=== PATIENT | female | born 1940 | race Caucasian/White ===

== ENCOUNTER → 2017-11-22 15:04 | Outpatient (CLI) | payer MEDICARE, SELFPAY ==
[2017-11-22 18:34] LABS: CRP < 2.90 mg/L (0.0-3.0)
[2017-11-24 14:08] LABS: Endomysial Antibody IgA Negative (Negative)
[2017-11-24 14:44] LABS: Immunoglobulin A 105 mg/dL (64-422); t-Transglutaminase IgA <2 U/mL (0-3)
== END ==
PROVIDERS: Family Provider Family Medicine; PCP Family Medicine; Visit Provider Internal Medicine Gastroenterology
DX: R19.7 Diarrhea, unspecified (principal)
CPT/HCPCS: 36415; 82784; 83516; 86140; 86255

== ENCOUNTER → 2017-12-13 11:13 | Outpatient (CLI) | payer MEDICARE, SELFPAY ==
--- NOTE | 2017-12-13 11:17 | NM_ITS ---
CLINICAL: 77-year-old female with reported history of abdominal pain. RADIONUCLIDE HEPATOBILIARY SCINTIGRAPHY COMPARISON: None available FINDINGS: Following the intravenous administration of 5.2 mCi of 99m Tc Mebrofenin, hepatobiliary images reveal: 1. Relatively prompt and homogeneous radiopharmaceutical concentration is noted by a normal sized liver. No parenchymal defects are identified. 2. Gallbladder activity is identified at 30 minutes post radiopharmaceutical administration. 3. Small intestinal tract is observed at 30 minutes following tracer injection. 4. Washout of the radiopharmaceutical by the hepatic parenchyma appears qualitatively normal. Cholecystokinin (0.02 ug/kg) was administered intravenously over a 30-minute period. The post CCK gallbladder ejection fraction calculated at 20 minutes following Cholecystokinin administration was noted to be 27.0 % (normal greater than 35%). 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 NM/Hepatobilliary Img w/Pharm Int IMPRESSION: 1. ABNORMAL 99m Tc Mebrofenin hepatobiliary imaging examination with Cholecystokinin. A. A gallbladder ejection fraction calculated to be less than 35% following the administration of Cholecystokinin is consistent with the presence of functional hepatobiliary disease (gallbladder and/or sphincter of Oddi dyskinesia) and/or organic hepatobiliary disease (chronic acalculous cholecystitis and/or cystic duct syndrome) in patients with intermediate to high pretest probabilities of hepatobiliary illness. (Kunal Clark et al, Journal of Nuclear Medicine 32:1695, 1990). B. There is scintigraphic evidence of post CCK duodenal-gastric reflux. (Chantell et al, Nucl Med [place] [employer]ey[employer] Press pg. 35, 1980). Electronically Signed: Shabbir Greenwood DO at 10:16 EST Tel , Service support ,
== END ==
PROVIDERS: Family Provider Family Medicine; PCP Family Medicine; Visit Provider Family Medicine
DX: R10.11 Right upper quadrant pain (principal)
CPT/HCPCS: 78227; A9537; J2805

== ENCOUNTER 2018-01-03 07:36 | Day surgery (SDC) | payer MEDICARE, SELFPAY ==
--- NOTE | 2018-01-02 11:54 | EKG12_ITS ---
Test Reason : PREOP Blood Pressure : / mmHG Vent. Rate : 052 BPM Atrial Rate : 052 BPM P-R Int : 148 ms QRS Dur : 144 ms QT Int : 440 ms P-R-T Axes : 058 -15 107 degrees QTc Int : 409 ms Sinus bradycardia Possible Left atrial enlargement Right bundle branch block Left ventricular hypertrophy with QRS widening and repolarization abnormality Cannot rule out Septal infarct , age undetermined Lateral infarct , age undetermined Abnormal ECG Confirmed by TACHO RODRIGUEZ ([id number]), news copy editor AUDREY SWAN ([id number]) on 01/02/2018 4:22:33 PM Referred By: Hong Delarosa Confirmed By:TACHO RODRIGUEZ
[2018-01-02 12:28] LABS: Hematocrit 43.2 % (37-47); Hemoglobin 13.8 g/dl (12.0-15.0); Mean Corp Hgb Conc 31.9 g/gl (32-36); Mean Corpuscular Hgb 30.7 pg (27.0-32.0); Mean Corpuscular Volume 96.2 fL (81-99); Mean Platelet Vol. 10.6 fl (6.2-12.0); Platelet Count 173 K/mm3 (150-450); RBC Distribution Width CV 13.3 % (11.6-14.6); RBC Distribution Width SD 46.9 fl (35.1-43.9); Red Blood Count 4.49 M/mm3 (4.2-5.4); White Blood Count 4.6 K/mm3 (4.4-11.0)
[2018-01-02 12:30] LABS: Scan Indicated on CBC? Y/N NO
[2018-01-02 12:40] LABS: Prothrombin Time (Protime)PT. 13.2 SECONDS (11.7-14.9)
[2018-01-02 12:41] LABS: Partial Thromboplast Time 43.8 Seconds (24.1-36.2)
[2018-01-02 13:04] LABS: AST(SGOT) 20 U/L (15-37); Alanine Aminotransfer ALT/SGPT 25 U/L (13-56); Albumin, Serum 3.8 g/dL (3.2-5.0); Alkaline Phosphatase 59 U/L (45-117); Anion Gap 4 (5-15); BUN 14 mg/dL (7-18); Calcium,Total 9.8 mg/dL (8.5-10.1); Chloride 107 mmol/L (98-107); Creatinine, Serum 0.74 mg/dL (0.55-1.02); EST Glomerular Filtration Rate 82 mL/min (>60); Est Glom Filt Rate - Afr Amer 99 mL/min (>60); Globulin 3.3 g/dL (2.2-4.2); Glucose 58 mg/dL (74-106); Protein, Total 7.1 g/dL (6.4-8.2); Sodium Level 143 mmol/L (136-145)
[2018-01-03] VITALS (14 sets, daily range): BP systolic 107–199; BP diastolic 46–101; PULSE 52–79; RESP 10–18; TEMP 36.4–36.8; O2SAT 90–100; BMI 22.2
--- NOTE | 2018-01-03 09:50 | GALL_PTH ---
PATIENT: UMA SANTILLAN [place] [facility] [id number] AGE/SX: 77/F ROOM: RE01/03/[address]: Dr. Hong Delarosa MD : [id number] BED: DIS: 01/03/2018 SPEC #: [id number] RECD: 01/03/18 13:21 STATUS: YOHAN ISABEL #: [id number] CLAUDY: 01/03/18 09:[address]: Hong Delarosa DEPT: SURGICAL PATHOLOGY RECD BY: Brenna Sheth ENTERED: 01/03/18 13:55 SP TYPE: ASHA BERGERON DR: Dr. José Miguel Delarosa III, MD Tissues: Gallbladder, NOS Procedures: Surgery Specimen Level III HEADER OPERATION: Laparoscopic, cholecystectomy with IOC PRE-OP DIAGNOSIS: Chronic cholecystitis TISSUE SUBMITTED: Gallbladder MICROSCOPIC DIAGNOSIS Gallbladder: Chronic cholecystitis and cholelithiasis. One benign pericystic lymph node with reactive changes. SJ:stephanie 01/04/18 MICROSCOPIC DESCRIPTION Slides are reviewed. GROSS DESCRIPTION Received is one container labeled with the patient's name and designated gallbladder. The specimen consists of a gallbladder measuring 10 x 3.5 x 3.5 cm. The external surface is smooth and glistening. Focally, it is granular, hemorrhagic and contains cautery artifact. The lumen of the gallbladder contains yellow mucoid bile and no calculi. The mucosa is bile-stained and without any mass lesions. The gallbladder wall averages 0.2 cm in thickness and is free of mass lesions. The pericystic soft tissue contains a nodule measuring 1 cm in greatest dimension and resembling a lymph node. Groundskeeper Porter sections of the gallbladder and the cystic duct are submitted in one cassette including the lymph node. / AM:stephanie 01/03/18 TC:3 [facility]: [id number]
[2018-01-03] MEDS: Cefazolin 2 GM in 0.9% Normal Saline 100 ML IV (10:12)
--- NOTE | 2018-01-03 10:16 | PCM.DC.GS ---
Discharge Diet: Light diet - advance as tolerated - if you have questions about your diet instructions, please talk to you doctor. Discharge Activity: May Not Drive - for 1 week or while taking narcotic pain medicine. May shower in (days): 1 Lifting Restrictions: 10 pounds Call your doctor if your incision/area has: Continuous Slow Oozing, Sudden Increased Bleeding, Increased Pain/ Swelling, Increased Redness, Foul Smelling Discharge Call your doctor if you observe: Fever of 101 or Higher Suture Line Care: Avoid Pulling/Pushing, Avoid Pinching/Bending Additional Dressing/Incision Instructions:: Change or remove dressing in 4 days. Leave steri-strips in place for 1 week. Allergies/Adverse Reactions: Allergies ciprofloxacin [From Cipro] Allergy (Mild, Verified 12/28/17 15:12) hives latex Adverse Reaction (Verified 12/28/17 15:12) Hives mesalamine Allergy (Mild, Uncoded 12/28/17 15:12) Hives Medications to take at Discharge Ascorbic Acid [Vitamin C] 500 mg PO PRN PRN 10/17/14 Aspirin [Aspirin, Baby] 81 mg PO MOWEFR 10/17/14 Hydrochlorothiazide [Hctz] 12.5 mg PO DAILY 10/17/14 Multivit-Min/FA/Lycopene/Lut [Centrum Silver Tablet] 1 ea PO DAILY 10/17/14 Simvastatin [Zocor] 20 mg PO QHS 10/17/14 Valerian Root 400 mg PO PRN PRN 10/17/14 Carvedilol [Coreg (Beta Dominguez)] 3.125 mg PO BID 10/31/17 Lorazepam [Ativan] 0.5 mg PO DAILY PRN PRN 10/31/17 Calcium Carb/Vitamin D [Caltrate-600 With Vit D Tab] 2 tab PO DAILY@0800 12/28/17 CycloSPORINE Ophthalmic [Restasis Ophthalmic] 1 drop EACH EYE BID 12/28/17 Sertraline HCl [Zoloft] 50 mg PO DAILY 12/28/17 Hydrocodone Bitart/Apap 5-325 [[place] 5MG-325MG] 1 tablet PO Q6H PRN PRN 3 Days #6 tablet 01/03/18 The following prescriptions were given: Hydrocodone Bitart/Apap 5-325 [[place] 5MG-325MG] 1 tablet PO Q6H PRN PRN 3 Days #6 tablet PRN Reason: Pain Primary Care Physician: José Miguel Delarosa III, MD [Primary Care Provider] - Please Follow Up With: Hong Delarosa MD - [phone] When: Call to make an appointment to be seen in about 10 days.
--- NOTE | 2018-01-03 10:20 | RAD_ITS ---
STUDY: INTRAOPERATIVE CHOLANGIOGRAM. REASON FOR EXAM: Female, 77 years old. Laparoscopic cholecystectomy. FLUOROSCOPY TIME (if supplied): (0:22) minutes/seconds TECHNIQUE: An intraoperative cholangiogram was performed by the surgeon. Imaging was submitted. COMPARISON: None. FINDINGS: The common bile duct was opacified. No intraluminal filling defect is seen. There is free flow of contrast into the duodenum. The pancreatic duct was opacified as well. No abnormality is seen. RAD/Cholangiogram/ O R,Initial IMPRESSION: Unremarkable intraoperative cholangiogram. Electronically Signed: Adonay Ellington MD at 14:40 EDT Tel [phone], Service support ,
[2018-01-03] MEDS: Bupivacaine Mpf 0.5% 30 ML VIAL (10:26)
--- NOTE | 2018-01-03 11:27 | PCM.OPRPT ---
Problem List (1) Chronic cholecystitis Status: Acute Report of Operation Date of Procedure: 01/03/18 Pre-Operative Diagnosis: Chronic cholecystitis Post-Operative Diagnosis: Same Surgery/Procedure Performed:: Laparoscopic cholecystectomy with cholangiograms Description of Surgical Findings:: Timeout and informed consent was obtained. 77-year-old female was taken out from. She was placed on the table. She underwent general endotracheal intubation. Ancef 2 g are given intravenously preoperatively. The abdomen sterilely prepped draped. 0.5% Marcaine was used as local anesthetic. Throughout the procedure total 30 cc was used. Skin sites were pre-anesthetized. A curvilinear incision was made in the inferior portion of the umbilicus. Sharp dissection carried down to the fascia. Holding sutures of 0 Vicryl placed. Fascia was incised sharply and then hemostats were used to elevate the peritoneum. There is a significant amount of fibrofatty tissue so I then converted to a varies needle technique. Again clean access. The abdomen was insufflated with CO2 to pressure of 10 mmHg pressure. Roseanna trocar inserted. 10 lap scope inserted. No evidence of any trocar injuries. I direct visitation five-minute ports were placed in the epigastric right upper quadrant and right lateral upper quadrant. The patient is very short waist and has had a previous TRAM flap. The gallbladder was noted to be thickened and rubbery. It was elongated. The infundibular area peritoneum was incised and bluntly dissected free. The critical view was achieved. The cystic duct was thickened. The cystic artery identified. A Hem-o-fermin clip was placed on the cystic duct incision made in the cystic duct and the Tapvalue grams catheter was inserted through a 14-gauge Angiocath. Fluoroscopically controlled claims grams were obtained. This demonstrated normal flow into the common bile duct. There appear to be retrograde flow into the pancreatic duct with either distal stricturing or spasm. Official reading pending. This did not alter my proceeding with the procedure. The client James catheter was removed and 2 large Hem-o-fermin clips were placed on the infundibular cystic duct stump. Prior to transecting it. The cystic artery was clipped proximally with a Hem-o-fermin clip prior to transecting it. The gallbladder was dissected free from the liver bed using electrocautery. No spillage. Complete hemostasis was intact. The gallbladder was placed in retrieval bag. The right upper quadrant was irrigated and aspirated free of excess fluid. The liver bed was hemostatic with electrocautery and then fibular was placed. The gallbladder was exited the umbilicus. The remaining trochars removed under visualization. The abdomen was allowed to deflate of the CO2. The fascia at the umbilicus approximated interrupted 0 Vicryl figure 8 suture. Skin edges approximated up to 4 Monocryl subdermal stitches. Steri-Strips Telfa and OpSite dressings applied. Sponge instrument and needle counts were reported to the surgeon to be correct. Specimens gallbladder. Drains none. Blood loss minimal. Hong eDlarosa M.D., F.A.C.S. Type of Anesthesia:: General Anesthesiologist: Ramos Arguelles
--- NOTE | 2018-01-03 11:31 | OP.PCM_ITS ---
Problem List (1) Chronic cholecystitis Status: Acute Report of Operation Date of Procedure: 01/03/18 Pre-Operative Diagnosis: Chronic cholecystitis Post-Operative Diagnosis: Same Surgery/Procedure Performed:: Laparoscopic cholecystectomy with cholangiograms Description of Surgical Findings:: Timeout and informed consent was obtained. 77-year-old female was taken out from. She was placed on the table. She underwent general endotracheal intubation. Ancef 2 g are given intravenously preoperatively. The abdomen sterilely prepped draped. 0.5% Marcaine was used as local anesthetic. Throughout the procedure total 30 cc was used. Skin sites were pre- anesthetized. A curvilinear incision was made in the inferior portion of the umbilicus. Sharp dissection carried down to the fascia. Holding sutures of 0 Vicryl placed. Fascia was incised sharply and then hemostats were used to elevate the peritoneum. There is a significant amount of fibrofatty tissue so I then converted to a varies needle technique. Again clean access. The abdomen was insufflated with CO2 to pressure of 10 mmHg pressure. Roseanna trocar inserted. 10 lap scope inserted. No evidence of any trocar injuries. I direct visitation five-minute ports were placed in the epigastric right upper quadrant and right lateral upper quadrant. The patient is very short waist and has had a previous TRAM flap. The gallbladder was noted to be thickened and rubbery. It was elongated. The infundibular area peritoneum was incised and bluntly dissected free. The critical view was achieved. The cystic duct was thickened. The cystic artery identified. A Hem-o-fermin clip was placed on the cystic duct incision made in the cystic duct and the ToutApp grams catheter was inserted through a 14-gauge Angiocath. Fluoroscopically controlled claims grams were obtained. This demonstrated normal flow into the common bile duct. There appear to be retrograde flow into the pancreatic duct with either distal stricturing or spasm. Official reading pending. This did not alter my proceeding with the procedure. The client James catheter was removed and 2 large Hem-o-fermin clips were placed on the infundibular cystic duct stump. Prior to transecting it. The cystic artery was clipped proximally with a Hem-o-fermin clip prior to transecting it. The gallbladder was dissected free from the liver bed using electrocautery. No spillage. Complete hemostasis was intact. The gallbladder was placed in retrieval bag. The right upper quadrant was irrigated and aspirated free of excess fluid. The liver bed was hemostatic with electrocautery and then fibular was placed. The gallbladder was exited the umbilicus. The remaining trochars removed under visualization. The abdomen was allowed to deflate of the CO2. The fascia at the umbilicus approximated interrupted 0 Vicryl figure 8 suture. Skin edges approximated up to 4 Monocryl subdermal stitches. Steri-Strips Telfa and OpSite dressings applied. Sponge instrument and needle counts were reported to the surgeon to be correct. Specimens gallbladder. Drains none. Blood loss minimal. Hong Delarosa M.D., F.A.C.S. Type of Anesthesia:: General Anesthesiologist: Ramos Arguelles
[2018-01-03] MEDS: HYDROcodone Bitartrate/Apap 5/325 Tablet PO (15:00)
== END 2018-01-03 16:34 | disposition home or self-care (01) ==
LOC: SDC 07:37 → AC 07:38
PROVIDERS: Family Provider Family Medicine; PCP Family Medicine; Visit Provider Surgery
PROC: (CPT 47610; principal; 2018-01-03 09:30)
DX: K80.10 Calculus of gallbladder with chronic cholecystitis without obstruction (principal); I10 Essential (primary) hypertension; E78.00 Pure hypercholesterolemia, unspecified; F41.9 Anxiety disorder, unspecified; R23.3 Spontaneous ecchymoses; M06.9 Rheumatoid arthritis, unspecified; R00.1 Bradycardia, unspecified; Z87.891 Personal history of nicotine dependence; Z85.3 Personal history of malignant neoplasm of breast; Z79.82 Long term (current) use of aspirin
CPT/HCPCS: 47563; 36415; 74300; 76000; 80048; 80076; 85027; 85610; 85730; 88304; 93005; J7120; A4216; J2405

== ENCOUNTER → 2018-05-08 09:30 | Outpatient (CLI) | payer MEDICARE, SELFPAY ==
--- NOTE | 2018-05-08 09:36 | STE_ITS ---
Reason For Study: Atypical chest pain Stress Results Protocol: Rajan Protocol Maximum Predicted HR: 145 bpm Target HR: 123 bpm% Max imum Predicted HR: 90 % DurationHeart Rate Stage (mm:ss) (bpm) BP BASELINE 55 148/60 STAGE 1 3:00 99 140/70 STAGE 2 3:00 12 5 160/62 STAGE 3 1:01 13 0 / RECOVERY 68 144/70 Stress Duration: 7:01 mm:ss Maximum Stress HR: 130 bpmM ETS: 9 Baseline Echocardiogram Findings Stress Echo Wall motion Data Resting WMIntermediate WMStress WM Resting Wall Motion Wall Motion Stress All segments Normal. All segments Hyperkinetic. Ejection Fraction 55 %. Ejection Fraction 65 %. Stress Results Heart rate response: appropriate Blood pressure response: resting hypertension - appropriate response Arrhythmias: isolated exercise related transient 2:1 and 3:1 AV block with spontaneous return to sinus rhythm without obvious associated symptoms Functional capacity: good Stopped secondary to: dyspnea. EKG Data Baseline ECG: Sinus Bradycardia, RBBB. Peak exercise ECG: No obvious ECG changes. Symptoms with Stress No c/o chest discomfort during exercise / recovery. Interpretation Summary Negative (adequate) Stress Echocardiogram Comment: Isolated exercise related transient 2:1 and 3:1 AV block with spontaneoous return to sinus rhythm without obvious associated symptoms. Ordering Physician: José Miguel Delarosa Referring Physician: José Miguel Delarosa Performed By: Elba Ojeda RDCS
== END ==
PROVIDERS: Family Provider Family Medicine; PCP Family Medicine; Visit Provider Family Medicine
DX: I20.8 Other forms of angina pectoris (principal)
CPT/HCPCS: 93017; 93350

== ENCOUNTER → 2018-08-02 15:36 | Outpatient (CLI) | payer MEDICARE, SELFPAY ==
[2018-08-02 16:56] LABS: ALB/GLOB Ratio 1.2 RATIO (0.9-2.4); AST(SGOT) 22 U/L (15-37); Alanine Aminotransfer ALT/SGPT 33 U/L (13-56); Albumin, Serum 3.8 g/dL (3.2-5.0); Alkaline Phosphatase 68 U/L (45-117); Anion Gap 6 (5-15); BUN 16 mg/dL (7-18); BUN/Creat Ratio 21.2 RATIO (10-20); Calcium,Total 9.8 mg/dL (8.5-10.1); Chloride 102 mmol/L (98-107); Creatinine, Serum 0.75 mg/dL (0.55-1.02); EST Glomerular Filtration Rate 79 mL/min (>60); Est Glom Filt Rate - Afr Amer 96 mL/min (>60); Globulin 3.3 g/dL (2.2-4.2); Glucose 80 mg/dL (74-106); Potassium 4.3 mmol/L (3.5-5.1); Protein, Total 7.1 g/dL (6.4-8.2); Sodium Level 140 mmol/L (136-145)
== END ==
PROVIDERS: Family Provider Family Medicine; PCP Family Medicine; Referring Provider Family Medicine; Visit Provider Family Medicine
DX: I10 Essential (primary) hypertension (principal)
CPT/HCPCS: 80053

== ENCOUNTER 2018-10-18 11:30 | Outpatient (RCR) | payer MEDICARE, SELFPAY ==
--- NOTE | 2018-08-28 13:53 | HP.PTEVAL_ITS ---
Patient's Visit Information UMA SANTILLAN is a 78 year old F referred to Physical Therapy by José Miguel Delarosa with a diagnosis of LOW BACK PAIN. Date of Evaluation: 08/28/18 Physical Therapist: Briseyda Rodríguez Visit Plan Frequency: 2x /Week Duration: 4-6 Weeks Plan: AQUATIC THERAPY FOR PAIN RELEIF, POSTURE CORRECTION/STRENGTHENING, INSTRUCTION IN APPROPRIATE BODY MECHANICS AND ACTIVITY MODIFICATIONS. DLS STARTING WITH A NEUTRAL SPINE PROGRESSING ROM TOLERATED. ISAC LE ROM, STRETCHING AND STRENGTHENING. HEP INSTRUCTION. 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 Disability: NO. Present symptoms: RIGHT LOW BACK PAIN, RIGHT HIP PAIN AND RIGHT LATERAL THIGH PAIN. (PATIENT REPORTS SHE HAS A SORE LEFT SHOULDER FROM FALLING TOO). PATIENT REPORTS THE REASON SHE IS HERE IS FOR HER BACK. PATIENT DENIES LE SX'S. Present since: ABOUT 2 MONTHS AGO. Pain Scale: WORST 6/10, LEAST 0/10. Currently: 1/10. CURRENTLY GETTING BETTER. Commenced as a result of: NO APPARENT REASON BUT IT STARTED WHEN SHE STOPPED HAVING WATER CLASS TWO TIMES A WEEK. PATIENT REPORTS THE MONDAY WATER CLASS WAS ELIMINATED AND SHE ONLY DOES WATER CLASS ONCE A WEEK. Symptoms at onset: SAME. Worse: CURRENT WATER EX'S, SITTING IN A CHAIR THAT ISN'T STRAIGHT, LYING IN BED SOMTIMES. ALEVE (BUT DOES NOT WANT TO TAKE IT). Better: STANDING, SITTING IN A STRAIGHT CHAIR, BIOFREEZE. Disturbed sleep: YES. Previous history/Previous treatment: PATIENT REPORTS SHE HAS A HISTORY OF BACK PROBLEMS AND SHE HAS HAD PT, MASSAGE THERAPY AND CHIROPRACTIC TREATMENTS IN THE PAST. NO BACK SURGERY. NO BACK INJECTIONS. Coughing/sneezing/straining: NEGATIVE. Gait: PATIENT REPORTS SHE IS WALKING PRETTY NORMAL BUT IF SHE IS ON IT TOO MUCH SHE LIMPS A LITTLE. Difficulty initiating urinatin: NO. Accidents: NO. Unexplained weight loss: NO. Imaging: LUMBAR X-RAY SHOWING ARTHRITIS AND DDD PER PATIENT REPORT. PMH: GALLBLADDER REMOVAL MARCH 2018, BREAST CANCER WITH RECONSTRUCTION 2006 BUT NO CHEMO OR RADIATION. PLOF (Prior Level of Function): PATIENT REPORTS SHE IS NOW LIMITED IN HER ABILITY TO DO THE EX'S IN WATER CLASS DUE TO HER RIGHT BACK AND HIP PAIN. OTHER: PATIENT REPORTS SHE TRIPPED OVER SOMETHING IN THE GARAGE AND FELL AUG 11 2018 HURTING HER LEFT SHOULDER AND HER SHOULDER IS GETTING BETTER. SHE REPORTS HER BACK WAS ALREADY HURTING BEFORE SHE FELL AND SHE DENIES INCREASED BACK PAIN AFTER THE FALL. PATIENT REPORTS DR. OWENS GAVE HER PRESS UPS AND A CHIROPRACTIC TYPE ADJUSTMENT EX WHERE SHE LIES ON HER SIDE AND TWISTS HER UPPER BODY ONE WAY AND HER LEGS ANOTHER. SHE DID THEM ONCE A DAY AND IT SEEMED OK. SHE ALSO DOES KNEE TO CHEST FROM CHIROPRACTOR. - Objective Sitting/Standing Posture: FAIR. REDUCED LORDOSIS. NO LATERAL SHIFT. Active Correction of posture: WORSE (BETTER WITH CUSHION IN LOW BACK). Other Observations: INDEP GAIT INTO PT WITHOUT AD AND INDEP SIT TO STAND WITHOUT UE ASSIST. Motor deficit: ISAC LE'S 5/5 WITH MMT'ING EXCEPT HIPS GRADED 4/5. Sensory deficit: NO. ROM deficit: MILD HS TIGHTNESS. Reflexes: 2/3 ISAC LE'S. Dural Signs: NEGATIVE ISAC LE'S. Lumbar mvmt loss: flex - NIL. ext - MOD. R SG - MIN. L SG - MIN. INCREASED RIGHT LOW BACK PAIN WITH LUMBAR EXT AND RIGHT SG TESTING. Core strength: POOR. Palpation: TENDERNESS WITH PALPATION OF THE RIGHT PARASPINALS, RIGHT SACRAL, RIGHT BUTTOCK AND RIGHT HIP REGIONS. - Goals Goal 1:: DECREASE C/O RIGHT LOW BACK AND RIGHT LE PAIN Goal Time Frame: 4-6 Weeks Goal 2:: IMPROVE SITTING AND WATER EX FUNCTION Goal Time Frame: 4-6 Weeks Goal 3:: INSTRUCT IN PROPHYLAXIS Goal Time Frame: 4-6 Weeks - Rehabilitation Potential Rehabilitation Potential: Good - Anticipated Interventions Patient/Client Instruction: Educate patient on: Condition, Plan of Care, Risk Factors, Benefits of Fitness Program For the Purpose of:: To improve self management Therapeutic Exercise to Include: Strength training, Body mechanics, Postural training, Flexibilty training, In an aquatic setting, Dynamic Lumbar Stabilization For the Purpose of:: To decrease pain, To increase ROM, To improve muscle performance and motor function, To increase tolerance to activity/condition/position, To improve ability of physical actions for home/community/work/leisure Thank you for the opportunity to evaluate your patient. For Medicare and Medicare HMO plans, please review the plan of care and approve it. It will need to be FAXED BACK to us at [phone] for Medicare purposes. Please let me know if there are questions or concerns regarding this plan of care. Physician Signature : Date:
--- NOTE | 2018-09-19 12:25 | HP.PTREVAL ---
José Miguel Delarosa, It has been my pleasure to treat UMA SANTILLAN over the last 8 visits for LOW BACK PAIN. Please see the progress note below for an update on the physical therapy plan of care! Subjective: PATIENT REPORTS SHE HAS FOUND THERAPY VERY BENEFICIAL. PATIENT REPORTS SHE CAN SLEEP BETTER, AND SIT WITHOUT PAIN SOMETIMES. SHE REPORTS SHE KNOWS HOW TO CHANGE HER POSTURE TO ALLEVIATE HER PAIN NOW. SHE STATES SHE CAN EVEN GO UP STEPS WITHOUT PAIN NOW AND BEND PROPERLY SO IT DOESN'T HURT. SHE REPORTS UP TO 3/10 PAIN AT WORST NOW. SHE STATES SHE FEELS SHE COULD BENEFIT FROM FURTHER PT AND SHE IS HOPING TO SEE IF SHE CAN TOLERATE LAND PT. Objective/Function: Lumbar mvmt loss: flex - NIL. ext - MOD. R SG - MIN. L SG - MIN. INCREASED RIGHT LOW BACK PAIN WITH LUMBAR RIGHT SG TESTING BUT NOT EXTENSION TODAY. Core strength: POOR TO FAIR - IMPROVING. Palpation: TENDERNESS WITH PALPATION OF THE RIGHT PARASPINALS, RIGHT SACRAL, RIGHT BUTTOCK REGIONS BUT IMPROVING. PATIENT TOLERATED PRONE LYING WELL IN THE CLINIC TODAY. LUMBAR OSWESTRY HAS IMPROVED FROM 9 TO 5. Plan Plan: CONT PT 2X'S A WEEK ONE TIME A WEEK IN AQUATIC THERAPY AND ONE TIME A WEEK ON LAND TO WORK TOWARD INDEP WATER AND LAND EX PROGRAMS FOR MEMBERSHIP POST PT. AQUATIC THERAPY AND LAND THERAPY FOR PAIN RELEIF, POSTURE CORRECTION/STRENGTHENING, INSTRUCTION IN APPROPRIATE BODY MECHANICS AND ACTIVITY MODIFICATIONS. DLS STARTING WITH A NEUTRAL SPINE PROGRESSING ROM TOLERATED. ISAC LE ROM, STRETCHING AND STRENGTHENING. HEP INSTRUCTION. PATIENT IS AGREEABLE WITH POC. Goals Goal 1:: DECREASE C/O RIGHT LOW BACK AND RIGHT LE PAIN Goal Time Frame: 4-6 Weeks Goal Progress: Progressing Goal 2:: IMPROVE SITTING AND WATER EX FUNCTION Goal Time Frame: 4-6 Weeks Goal Progress: Progressing Goal 3:: INSTRUCT IN PROPHYLAXIS Goal Time Frame: 4-6 Weeks Goal Progress: Progressing Anticipated Interventions Patient/Client Instruction: Educate patient on: Condition, Plan of Care, Risk Factors, Benefits of Fitness Program For the Purpose of:: To improve self management Therapeutic Exercise to Include: Strength training, Body mechanics, Postural training, Flexibilty training, In an aquatic setting, Dynamic Lumbar Stabilization For the Purpose of:: To decrease pain, To increase ROM, To improve muscle performance and motor function, To increase tolerance to activity/condition/position, To improve ability of physical actions for home/community/work/leisure Please do not hesitate to contact me at [phone] by phone or if you have questions or concerns regarding this new plan of care! Sincerely, Briseyda Horan
--- NOTE | 2018-10-18 12:36 | HP.PTDCSUM ---
HP - PT D/C Summary It has been my pleasure to treat UMA SANTILLAN under orders from José Miguel Delarosa III, MD, for the diagnosis of LOW BACK PAIN for a total of 13 visit(s). Discharge Date: Please see the following information for a summary of their discharge status. - Subjective Subjective: PATIENT REPORTS HER STOMACH IS DEFINATELY GETTING STRONGER. STATES SHE GOT A NEW MATTRESS. WOULD LIKE TO CONTINUE INDEP'LY AT THIS POINT. - Pain Lumbar Spine Pain Intensity (Out of 10): 0 - Overall Improvement % Improvement: 80 - Objective Objective/Function: ALL GAOLS HAVE BEEN MET. PATIENT IS APPROPRIATE FOR DISCHARGE TO INDEP LAND AND POOL EX'S AT THIS TIME. WRITTEN EX PROGRAMS PROVIDED. UPON EXAM: Lumbar mvmt loss: flex - NIL. ext - MOD. R SG - MIN. L SG - MIN. INCREASED RIGHT LOW BACK PAIN WITH LUMBAR RIGHT SG TESTING ONLY. Palpation: TENDERNESS WITH PALPATION OF THE RIGHT PARASPINALS, RIGHT SACRAL, RIGHT BUTTOCK REGIONS BUT IMPROVING. LUMBAR OSWESTRY HAS NOT SIGNIFICANTLY CHANGED SINCE LAST RE-CHECK BUT IMPROVED FROM 9 TO 5 OR 6 OVER-ALL. [ End ] - Goals Goal 1:: DECREASE C/O RIGHT LOW BACK AND RIGHT LE PAIN Goal Progress: Goal Met Goal 2:: IMPROVE SITTING AND WATER EX FUNCTION Goal Progress: Goal Met Goal 3:: INSTRUCT IN PROPHYLAXIS Goal Progress: Goal Met - Plan Plan: D/C. - D/C Information If there are questions or concerns regarding this patient's physical therapy, please feel free to call me at [phone]. Thank you for the referral of this patient. Sincerely, Briseyda Horan, PT, Cert MDT
== END 2018-10-18 19:00 | disposition home or self-care (01) ==
LOC: PT 11:30
PROVIDERS: Family Provider Family Medicine; PCP Family Medicine; Referring Provider Family Medicine; Visit Provider Family Medicine
DX: M54.5 Low back pain (principal)
CPT/HCPCS: 97110; 97113; 97162; 97530

== ENCOUNTER → 2019-04-26 10:36 | Outpatient (CLI) | payer MEDICARE, SELFPAY ==
[2019-04-26 11:15] LABS: Cholesterol 173 mg/dL (200); High Density Lipoprotein 65 mg/dL; Triglycerides 57 mg/dL; Very Low Density Lipoprotein 11 mg/dL (5-40)
== END ==
PROVIDERS: Family Provider Family Medicine; PCP Family Medicine; Referring Provider Family Medicine; Visit Provider Family Medicine
DX: E78.5 Hyperlipidemia, unspecified (principal)
CPT/HCPCS: 80061

== ENCOUNTER → 2019-06-11 16:40 | Outpatient (CLI) | payer MEDICARE, SELFPAY | PROVIDERS: Family Provider Family Medicine; PCP Family Medicine; Referring Provider Nurse Practitioner Family; Visit Provider Nurse Practitioner Family | DX: N39.498 Other specified urinary incontinence (principal); R10.30 Lower abdominal pain, unspecified | CPT/HCPCS: 87070; 87086; 87205 ==

== ENCOUNTER → 2019-10-31 15:59 | Outpatient (CLI) | payer MEDICARE, SELFPAY ==
[2019-10-31 18:31] LABS: Absolute Lymphocyte Count 1.43 X10^3/uL (0.83-4.51); Absolute Neutrophil Count 2.8 X10^3/uL (2.0-7.7); Basophil# 0.06 X10^3/uL; Basophil% 1.2 % (0-1); Eosinophil# 0.14 X10^3/uL; Eosinophils% 2.9 % (0-5); Hematocrit 40.6 % (37-47); Hemoglobin 13.4 g/dL (12.0-15.0); Lymphocyte # 1.43 X10^3/ul (4.0); Lymphocyte % 29.5 % (19-41); Mean Corpuscular Hgb 31.3 pg (27.0-32.0); Mean Corpuscular Volume 94.9 fL (81-99); Mean Platelet Vol. 10.1 fl (6.2-12.0); Monocyte# 0.39 X10^3/uL; NRBC Flagged by Analyzer 0 % (0-5); Neutrophil # 2.82 X10^3/uL (2.7-7.7); Neutrophil % 58.2 % (47-70); Platelet Count 187 K/mm3 (150-450); RBC Distribution Width CV 12.2 % (11.6-14.6); RBC Distribution Width SD 42.1 fl (35.1-43.9); Red Blood Count 4.28 M/mm3 (4.2-5.4); White Blood Count 4.9 K/mm3 (4.4-11.0)
[2019-10-31 18:37] LABS: ALB/GLOB Ratio 1.1 RATIO (0.9-2.4); AST(SGOT) 16 U/L (15-37); Alanine Aminotransfer ALT/SGPT 25 U/L (13-56); Albumin, Serum 3.7 g/dL (3.2-5.0); Alkaline Phosphatase 66 U/L (45-117); Anion Gap 1 (5-15); BUN 12 mg/dL (7-18); BUN/Creat Ratio 16.7 RATIO (10-20); Calcium,Total 9.6 mg/dL (8.5-10.1); Chloride 104 mmol/L (98-107); Creatinine, Serum 0.72 mg/dL (0.55-1.02); EST Glomerular Filtration Rate 84 mL/min (>60); Erythrocyte Sedimentation Rate 2 mm/hr (0-30); Est Glom Filt Rate - Afr Amer 101 mL/min (>60); Globulin 3.3 g/dL (2.2-4.2); Glucose 89 mg/dL (74-106); Potassium 3.9 mmol/L (3.5-5.1); Sodium Level 139 mmol/L (136-145)
== END ==
PROVIDERS: PCP Family Medicine; Referring Provider Nurse Practitioner Family; Visit Provider Nurse Practitioner Family
DX: K52.831 Collagenous colitis (principal); R19.7 Diarrhea, unspecified
CPT/HCPCS: 80053; 85025; 85652; 87329; 87493; 87506

== ENCOUNTER → 2021-05-19 17:51 | Outpatient (CLI) | payer MEDICARE, SELFPAY ==
[2021-05-19 17:57] LABS: Bacteria 0 SEEN /hpf (None Seen); Mucous, Urine 0 SEEN /hpf (<or=2+); Red Blood Cells-Urine 0 SEEN /hpf (0-5); Squamous Epithelial Cells - UA 0 SEEN /hpf (5-10)
[2021-05-19 18:09] LABS: Absolute Lymphocyte Count 1.56 X10^3/uL (0.83-4.51); Absolute Neutrophil Count 3.2 X10^3/uL (2.0-7.7); Basophil# 0.05 X10^3/uL; Basophil% 0.9 % (0-1); Color, Urine Yellow (Yellow); Eosinophil# 0.11 X10^3/uL; Eosinophils% 2.1 % (0-5); Glucose, Dipstick Normal (Normal); Hematocrit 41.2 % (37-47); Hemoglobin 13.1 g/dL (12.0-15.0); Ketone-Dipstick Negative (Negative); Leukocyte Esterase-Dipstick 25 /ul (Negative); Lymphocyte # 1.56 X10^3/ul (0.83-4.51); Lymphocyte % 29.6 % (19-41); Mean Corp Hgb Conc 31.8 g/dL (32-36); Mean Corpuscular Hgb 30.2 pg (27.0-32.0); Mean Corpuscular Volume 94.9 fL (81-99); Mean Platelet Vol. 10.2 fl (6.2-12.0); Monocyte% 7.6 % (0-10); NRBC Flagged by Analyzer 0 % (0-5); Neutrophil # 3.15 X10^3/uL (2.7-7.7); Neutrophil % 59.8 % (47-70); Nitrite-Dipstick Negative (Negative); Occult Blood-Urine Negative /ul (Negative); Platelet Count 211 K/mm3 (150-450); Protein-Dipstick Negative (Negative); RBC Distribution Width CV 12.9 % (11.6-14.6); RBC Distribution Width SD 44.9 fl (35.1-43.9); Red Blood Count 4.34 M/mm3 (4.2-5.4); Urine Bilirubin Dipstick Negative (Negative); Urine Clarity Clear (Clear); Urine Urobilinogen Normal (Normal); White Blood Count 5.3 K/mm3 (4.4-11.0)
[2021-05-19 18:16] LABS: White Blood Cells 0-5 SEEN /hpf (0-5)
[2021-05-19 19:00] LABS: ALB/GLOB Ratio 1.1 RATIO (0.9-2.4); AST(SGOT) 20 U/L (15-37); Alanine Aminotransfer ALT/SGPT 28 U/L (13-56); Albumin, Serum 3.6 g/dL (3.2-5.0); Alkaline Phosphatase 74 U/L (45-117); Anion Gap 6 (5-15); BUN 19 mg/dL (7-18); Calcium,Total 9.3 mg/dL (8.5-10.1); Chloride 105 mmol/L (98-107); Cholesterol 230 mg/dL (200); Creatinine, Serum 0.95 mg/dL (0.55-1.02); EST Glomerular Filtration Rate 60 mL/min (>60); Est Glom Filt Rate - Afr Amer 73 mL/min (>60); Globulin 3.4 g/dL (2.2-4.2); Glucose 98 mg/dL (74-106); High Density Lipoprotein 56 mg/dL; Potassium 3.9 mmol/L (3.5-5.1); Sodium Level 141 mmol/L (136-145); Triglycerides 173 mg/dL; Very Low Density Lipoprotein 35 mg/dL (5-40)
== END ==
PROVIDERS: PCP Family Medicine; Visit Provider Family Medicine
DX: I10 Essential (primary) hypertension (principal); E78.2 Mixed hyperlipidemia; Z79.899 Other long term (current) drug therapy
CPT/HCPCS: 80053; 80061; 81001; 85025

== ENCOUNTER 2022-02-11 07:01 | Day surgery (SDC) | payer MEDICARE, SELFPAY ==
[2022-02-11] VITALS (7 sets, daily range): BP systolic 93–138; BP diastolic 44–66; PULSE 64–74; RESP 16; TEMP 36.1–37; O2SAT 96–98; BMI 21.6
[2022-02-11] MEDS: Lactated Ringers 1,000 ML 15 ML IV (07:36)
--- NOTE | 2022-02-11 08:09 | PCM.HP.BLA ---
History and Physical Date of Admission: 02/11/22 Intake Intake Visit Reasons: SCOPES FOR ANEMIA Chief Complaint: abn hida scan Allergies ciprofloxacin [From Cipro] Allergy (Mild, Verified 02/03/22 13:50) hives latex Adverse Reaction (Verified 02/03/22 13:50) Hives mesalamine Allergy (Mild, Uncoded 02/03/22 13:50) Hives Medications Valerian Root 400 mg PO PRN PRN 10/17/14 [History Confirmed 02/03/22] ascorbic acid (vitamin C) 500 mg PO PRN PRN 10/17/14 [History Confirmed 02/03/22] hydrochlorothiazide 12.5 mg PO DAILY 10/17/14 [History Confirmed 02/03/22] xhcwpqiz-szm-WC-lycopen-lutein 1 ea PO DAILY 10/17/14 [History Confirmed 02/03/22] lorazepam 0.5 mg PO DAILY PRN PRN 10/31/17 [History Confirmed 02/03/22] calcium carbonate-vitamin D3 2 tab PO DAILY@0800 12/28/17 [History Confirmed 02/03/22] cyclosporine 1 drp EACH EYE BID 12/28/17 [History Confirmed 02/03/22] sertraline 50 mg PO DAILY 12/28/17 [History Confirmed 02/03/22] ferrous sulfate 142 mg (45 mg iron) tablet,extended release 142 mg PO DAILY 02/03/22 [History Confirmed 02/03/22] PFSH Medical History Abnormal ECG Anxiety Chronic cholecystitis Hemorrhoids History of breast cancer History of colitis HLD (hyperlipidemia) Hypertension Pancreatitis Surgical History S/P colonoscopy S/P laparoscopic cholecystectomy (~01/03/18) S/P lumpectomy of breast Family History Mother Hypertension CVA (cerebral vascular accident) Sister Hypertension Father CVA (cerebral vascular accident) Social History Smoking Status: Former smoker HPI HPI HPI: UMA ASNTILLAN, is a 81 F who presents to the office today for iron deficiency anemia. The patient reports no gross blood in her stool. She had a colonoscopy in 2018 which was normal. She has never had an EGD. She does have lower abdominal pain. ROS General General: Yes weight change and breast cancer; No appetite, fatigue, colon cancer or weakness HEENT HEENT: No difficulty swallowing, eye injury, eye surgery, swollen glands or hoarseness Endo Endocrine: No thyroid disease, diabetes mellitus, thyroid cancer, Hair loss, heat intolerance or cold intolerance Skin Skin: No rash or changing moles Breast Breast: No left breast lump, right breast lump, nipple discharge, breast pain, abnormal mammogram, abnormal US or breast enlargement Musc Musculoskeletal: Yes arthritis; No back problems, rheumatoid arthritis, gout or joint pain Cardio Cardiovascular: No murmur, pacemaker, heart disease, atrial fibrillation, high blood pressure, heart attack, heart stent, palpitations, shortness of breat with exertion or chest pain Psych Psychiatric: Yes anxiety; No depression or hearing voices Resp Respiratory: No shortness of breath, No sleep apnea, No cough, No COPD, No asthma, No emphysema and No wheezing Gastro Gastrointestinal: Yes abdominal pain, No nausea or vomiting, No diarrhea, No constipation, No blood in stool, No acid reflux, No hemorrhoids, No ulcers, No gallbladder problem and No black,tarry stools Jerald Hematologic: No blood thinners, No blood disorders, No bleeding, Yes anemia and No blood clots Neuro Neurologic: No system reviewed and no additional complaints, except as documented, No as per HPI, No abnormal gait, No abnormal hearing, No abnormal movements, No abnormal speech, No behavioral changes, No burning sensations, No confusion, No convulsions, No disequilibrium, No dizziness, No localized weakness, No frequent falls, No headache(s), No lack of coordination, No loss of vision, No memory loss, No numbness, No other visual disturbances, No radicular pain, No restless legs, No sensory deficit, No syncope, No tingling, No tremor(s), No weakness and No other Exam Const General: cooperative Orientation: alert and oriented x3 HENMT Head: normal to inspection Neck Neck: normal visual inspection and full ROM Chest Chest palpation & inspection: normal inspection of the chest Resp Effort & Inspection: normal respiratory effort Auscultation: clear to auscultation bilaterally Cardio Rate: regular rate Rhythm: regular rhythm GI Inspection: non-distended Palpation: soft and nontender Skin General: no rashes or lesions noted Neuro General: patient alert and patient oriented x3 Extrem General: full ROM Psych Appearance: grossly normal Mental Status: mental status grossly normal Assessment and Plan Assessment and Plan (1) Iron deficiency anemia: Status: Acute Qualifiers: Iron deficiency anemia type: unspecified iron deficiency Qualified Code(s): D50.9 - Iron deficiency anemia, unspecified Plan - Dr. Juan A Tinajero MD: The patient has iron deficiency anemia of unknown cause. She had a colonoscopy 4 years ago which was normal. She has never had an EGD. I recommend upper and lower endoscopy to evaluate. I explained endoscopy in detail to the patient. I explained the risks including but not limited to stroke or heart attack with anesthesia, perforation of the GI tract, bleeding, infection. I explained that any of these could necessitate further emergency surgery. The patient understands and all questions were answered sufficiently. The patient wishes to proceed with procedure. Juan A Tinajero MD Pager: [facility] [address] [place] [address], [address] [place] [address] Office: I have re-examined the patient. There are no clinical changes since date of exam.
--- NOTE | 2022-02-11 08:15 | EGD_PTH ---
PATIENT: UMA SANTILLAN LOC: EN U#:[id number] AGE/SX: 81/F ROOM: RE02/11/[address]: Dr. Juan A Tinajero MD : 1940 BED: DIS: 02/11/2022 SPEC #: [id number] RECD: 02/11/22 10:29 STATUS: YOHAN HALL #: [id number] CLAUDY: 02/11/22 08:[address]: Juan A Tinajero DEPT: SURGICAL PATHOLOGY RECD BY: Lali Rowley ENTERED: 02/11/22 11:58 SP TYPE: EGD BIOPSY OT DR: Dr. Dillan German MD Tissues: A - Gastric mucous membrane B - Ascending colon Procedures: Special Stain Group II Mucicarmine Stain (control) Surgery Specimen Level IV Alcian Blue/PAS (control) HEADER OPERATION: Colonoscopy, EGD ([facility]) PRE-OP DIAGNOSIS: Iron Deficiency Anemia TISSUE SUBMITTED: A. Biopsy antrum, B. Biopsy ascending colon MICROSCOPIC DIAGNOSIS A. Gastric antrum, biopsy: Chronic gastritis. Focal intestinal metaplasia. No evidence of dysplasia. B. Ascending colon, biopsy: Consistent with invasive mucinous carcinoma. See Comment. AM/am 02/14/22 COMMENT A. Alcian blue with matched control is positive. The results of immunohistochemistry for Helicobacter pylori and P53/Ki-67 will be performed and results will be reported separately. B. Immunohistochemistry ([id number]) supports the above diagnosis. Mucin with matched control is positive. Case has been reviewed in consultation with Dr. Orellana who concurs with the above diagnosis. IDC:SJ MICROSCOPIC DESCRIPTION Slides are reviewed. GROSS DESCRIPTION A. Received is one container labeled with the patient name and designated antrum biopsy. The specimen consists of multiple irregular fragments of light nice soft tissue that in aggregate measure 0.6 x 0.2 x 0.1 cm. The specimen is totally submitted in one cassette. B. Received is one container labeled with the patient name and designated ascending colon biopsy. The specimen consists of multiple irregular fragments of light nice soft tissue that in aggregate measure 1.0 x 0.5 x 0.1 cm. The specimen is totally submitted in one cassette. 02/13/22 TC:0 CPT:49112w8, 77559t4
--- NOTE | 2022-02-11 08:15 | IMM_PTH ---
PATIENT: UMA SANTILLAN LOC: EN U#:[id number] AGE/SX: 81/F ROOM: RE02/11/[address]: Dr. Juan A Tinajero MD : 1940 BED: DIS: 02/11/2022 SPEC #: [id number] RECD: 02/11/22 12:00 STATUS: YOHAN ISABEL #: [id number] CLAUDY: 02/11/22 08:[address]: Juan A Tinajero DEPT: IMMUNOHISTOCHEMISTRY RECD BY: Lali Rowley ENTERED: 02/11/22 12:09 SP TYPE: IMMUNO OTHR DR: Dr. Dillan German MD Tissues: Gastric mucous membrane Procedures: H Pylori (initial) MSH2 (add) MLH-1 (add) MSH6 (add) Anti-PMS2 (add) CK20 (add) GALVEZ-2 (add) KI-67 (add) P53 (add) Pankeratin (initial) CDX2 (add) PHYSICIAN [address] [address] SPECIMEN INFORMATION: Tissue Source: A - Antrum biopsy, B ? Ascending colon biopsy Clinical Info: Iron deficiency Anemia Specimen Number: [id number] A & B CPT code: 65209 x2, 43642 x11 METHODOLOGY: Deparaffinized sections of prefer/formalin-fixed tissue or PAP/DQ stained slides are incubated with monoclonal/polyclonal antibodies/oligonucleotide probes. Localization is made via biotin free immunoperoxidase method. Appropriate controls are performed and reacted as expected. Results on target cell population are indicated in the following table: RESULTS: ANTIBODY / CLONE RESULT Block A H Pylori (polyclonal) negative These tests were developed and their performance characteristics determined by [facility]. They may not have been cleared or approved by the U.S. Food and Drug Administration. The FDA has determined that such clearance or approval is not necessary. The above immunohistochemical/dualISH markers are ordered and reviewed by the Pathologist. INTERPRETATION: Gastric antrum, biopsy: Negative for H.pylori organisms. AM/am 02/14/22 ADDENDUM ADDENDUM ADDENDUM ADDENDUM ADDENDUM ADDENDUM ADDENDUM ADDENDUM ADDENDUM ADDENDUM ADDENDUM ADDENDUM ADDENDUM ADDENDUM ADDENDUM ADDENDUM ADDENDUM ADDENDUM ADDENDUM ADDENDUM ADDENDUM ADDENDUM ADDENDUM ADDENDUM ADDENDUM ADDENDUM ADDENDUM ADDENDUM 02/15/2022 13:34 ADDENDUM 02/15/2022 13:34 ADDENDUM 02/15/2022 13:34 ADDENDUM 02/15/2022 13:34 ADDENDUM 02/15/2022 13:34 ANTIBODY / CLONE RESULT Block A P53 (DO-7) negative Ki-67 (30-9) positive, low Block B AE1-3 (AE1/AE3/PCK26) positive CK20 (KS20.8) positive GALVEZ-2 (SP21) positive CDX2 (OFY1983M) positive MLH-1 (M1) negative MSH2 (25D12) positive MSH6 (44) positive PMS2 (VTF6589) positive Ki-67 (30-9) positive, >90% P53 (DO-7) positive, 2% A. Antrum, biopsy: Focal intestinal metaplasia. No evidence of dysplasia. B. Ascending colon, biopsy: Invasive mucinous adenocarcinoma. Result of Microsatellite Instability Study: Positive (loss of mismatch protein; microsatellite instability detected). Complete loss of MLH1. AM:stephanie 02/15/2022
--- NOTE | 2022-02-11 08:50 | OP.EGD_ITS ---
Patient Name: Krissy Ahmadi Procedure Date: 02/11/2022 8:14 AM Date of : 1940 Age: 81 Procedure: Upper GI endoscopy Indications: Iron deficiency anemia Providers: Juan A Tinajero MD Medicines: Monitored Anesthesia Care Patient Profile: This is a 81 year old female. Refer to note in patient chart for documentation of history and physical. Complications: No immediate complications. Estimated blood loss: Minimal. Procedure: Pre-Anesthesia Assessment: - Prior to the procedure, a History and Physical was performed, and patient medications and allergies were reviewed. The patient's tolerance of previous anesthesia was also reviewed. The risks and benefits of the procedure and the sedation options and risks were discussed with the patient. All questions were answered, and informed consent was obtained. Prior Anticoagulants: The patient has taken no previous anticoagulant or antiplatelet agents. After reviewing the risks and benefits, the patient was deemed in satisfactory condition to undergo the procedure. After obtaining informed consent, the endoscope was passed under direct vision. Throughout the procedure, the patient's blood pressure, pulse, and oxygen saturations were monitored continuously. The Endoscope was introduced through the mouth, and advanced to the second part of duodenum. The upper GI endoscopy was accomplished without difficulty. The patient tolerated the procedure well. Scope In: 8:24:06 AM Scope Out: 8:26:48 AM Total Procedure Duration Time 0 hours 2 minutes 42 seconds Findings: The esophagus was normal. The stomach was normal. The examined duodenum was normal. Biopsies were taken with a cold forceps in the gastric antrum for Helicobacter pylori testing. Impression: - Normal esophagus. - Normal stomach. - Normal examined duodenum. - Biopsies were taken with a cold forceps for Helicobacter pylori testing. Recommendation: - Discharge patient to home. - Resume previous diet. - Continue present medications. Procedure Code(s): --- Professional --- 48502, Esophagogastroduodenoscopy, flexible, transoral; with biopsy, single or multiple Diagnosis Code(s): --- Professional --- D50.9, Iron deficiency anemia, unspecified CPT copyright 2017 [employer]. All rights reserved. The codes documented in this report are preliminary and upon seafood specialist review may be revised to meet current compliance requirements. Juan A Tinajero MD 02/11/2022 8:49:55 AM This report has been signed electronically. Number of Addenda: 0 Note Initiated On: 02/11/2022 8:14 AM
--- NOTE | 2022-02-11 08:51 | OP.CCLET_ITS ---
02/11/2022 Dillan German MD Re : Upper GI endoscopy procedure for Krissy Ahmadi Dear Dr. German This procedure was performed on Friday, February 11, 2022. My impressions and recommendations are as follows: Impressions : - Normal esophagus. - Normal stomach. - Normal examined duodenum. - Biopsies were taken with a cold forceps for Helicobacter pylori testing. Recommendations : - Discharge patient to home. - Resume previous diet. - Continue present medications. My findings are described in the full procedure note, which is enclosed. If I can be of further assistance, please feel free to contact me at Doctor phone number(s): , Work: . Sincerely, Juan A Tinajero MD 02/11/2022 8:49:55 AM This report has been signed electronically.
--- NOTE | 2022-02-11 08:59 | OP.COLON_ITS ---
Patient Name: Krissy Ahmadi Procedure Date: 02/11/2022 8:29 AM Date of : 1940 Age: 81 Procedure: Colonoscopy Indications: Iron deficiency anemia Providers: Juan A Tinajero MD Medicines: Monitored Anesthesia Care Patient Profile: This is a 81 year old female. Refer to note in patient chart for documentation of history and physical. Last Colonoscopy: more than 3 years ago. Complications: No immediate complications. Estimated blood loss: Minimal. Procedure: Pre-Anesthesia Assessment: - Prior to the procedure, a History and Physical was performed, and patient medications and allergies were reviewed. The patient's tolerance of previous anesthesia was also reviewed. The risks and benefits of the procedure and the sedation options and risks were discussed with the patient. All questions were answered, and informed consent was obtained. Prior Anticoagulants: The patient has taken no previous anticoagulant or antiplatelet agents. After reviewing the risks and benefits, the patient was deemed in satisfactory condition to undergo the procedure. After I obtained informed consent, the scope was passed under direct vision. Throughout the procedure, the patient's blood pressure, pulse, and oxygen saturations were monitored continuously. The Colonoscope was introduced through the anus and advanced to the cecum, identified by appendiceal orifice and ileocecal valve. The colonoscopy was performed without difficulty. The patient tolerated the procedure well. The quality of the bowel preparation was good. Scope In: 8:30:10 AM Scope Withdrawal Time 0 hours 4 minutes 13 seconds Scope Out: 8:42:21 AM Total Procedure Duration Time 0 hours 12 minutes 11 seconds Findings: A fungating partially obstructing large mass was found in the ascending colon. The mass was partially circumferential (involving two-thirds of the lumen circumference). No bleeding was present. This was biopsied with a cold forceps for histology. Impression: - Malignant partially obstructing tumor in the ascending colon. Biopsied. - Malignant-appearing tumor in the colon. Biopsied. Recommendation: - Discharge patient to home. - Resume previous diet. - Continue present medications. - Await pathology results. - Return to my office in 1 week. - Perform CT scan (computed tomography) of the abdomen with contrast at appointment to be scheduled. - Repeat colonoscopy is recommended. The colonoscopy date will be determined after pathology results from today's exam become available for review. Procedure Code(s): --- Professional --- 45904, Colonoscopy, flexible; with biopsy, single or multiple Diagnosis Code(s): --- Professional --- C18.2, Malignant neoplasm of ascending colon K56.690, Other partial intestinal obstruction D49.0, Neoplasm of unspecified behavior of digestive system D50.9, Iron deficiency anemia, unspecified CPT copyright 2017 [employer]. All rights reserved. The codes documented in this report are preliminary and upon brine maker review may be revised to meet current compliance requirements. Juan A Tinajero MD 02/11/2022 8:58:50 AM This report has been signed electronically. Number of Addenda: 0 Note Initiated On: 02/11/2022 8:29 AM
--- NOTE | 2022-02-11 09:00 | OP.CCLET_ITS ---
02/11/2022 Dillan German MD Re : Colonoscopy procedure for Krissy Ahmadi Dear Dr. German This procedure was performed on Friday, February 11, 2022. My impressions and recommendations are as follows: Impressions : - Malignant partially obstructing tumor in the ascending colon. Biopsied. - Malignant-appearing tumor in the colon. Biopsied. Recommendations : - Discharge patient to home. - Resume previous diet. - Continue present medications. - Await pathology results. - Return to my office in 1 week. - Perform CT scan (computed tomography) of the abdomen with contrast at appointment to be scheduled. - Repeat colonoscopy is recommended. The colonoscopy date will be determined after pathology results from today's exam become available for review. My findings are described in the full procedure note, which is enclosed. If I can be of further assistance, please feel free to contact me at Doctor phone number(s): , Work: . Sincerely, Juan A Tinajero MD 02/11/2022 8:58:50 AM This report has been signed electronically.
== END 2022-02-11 09:44 | disposition home or self-care (01) ==
LOC: EN 07:02 → AC 07:04
PROVIDERS: PCP Family Medicine; Referring Provider Family Medicine; Visit Provider Surgery
PROC: 0DJD8ZZ Inspection of Lower Intestinal Tract, Via Natural or Artificial Opening Endoscopic (ICD-10-PCS; CPT 45378; principal; 2022-02-11 08:10)
DX: C18.2 Malignant neoplasm of ascending colon (principal); K56.690 Other partial intestinal obstruction; D50.9 Iron deficiency anemia, unspecified; K29.50 Unspecified chronic gastritis without bleeding
CPT/HCPCS: 45380; 43239; 88305; 88313; 88341; 88342; J7120; J2405

== ENCOUNTER → 2022-02-15 | Outpatient (CLI) | payer MEDICARE, SELFPAY ==
--- NOTE | 2022-02-15 06:40 | CT_ITS ---
STUDY: CT CHEST, ABDOMEN T PELVIS WITH CONTRAST REASON FOR EXAM: Female, 81 years old. Anemia. Recently diagnosed with colon cancer. RADIATION DOSAGE (If Supplied By Facility): CTDIvol = ( 12.34 ) mGy, DLP = ( 810.73 ) mGycm TECHNIQUE: Transaxial imaging was performed following intravenous administration of Oral and amp; IV Readi-CAT and amp; 100mL Isovue-370. Individualized dose optimization techniques were used for this CT. COMPARISON: No relevant priors. FINDINGS: CHEST There is a septated cystic nodule in the inferior posterior aspect of the right lobe of the thyroid measuring 1.4 cm x 1.4 cm. Mild degree of increased markings at the lung bases suggestive of a atelectasis. There is no demonstrated pleural abnormality. Mild degree of coronary artery calcification. Normal mediastinum. Normal hilar regions. Normal unenhanced pulmonary arteries. There is atherosclerotic calcification of the aortic arch. Normal osseous structures. ABDOMEN Normal liver. The patient is status post cholecystectomy. Normal spleen. Normal pancreas. Normal bilateral adrenal glands. Normal right kidney. Normal left kidney. Normal visualized stomach. Normal small intestine. There is a 4.6 cm x 4.2 cm x 3.4 cm mass in the ascending colon just proximal to the hepatic flexure. This corresponds to the known colon carcinoma. The patient is status post appendectomy. Normal abdominal aorta. Normal inferior vena cava. Normal retroperitoneum. Normal abdominal wall. There are degenerative changes of the visualized lumbar spine. PELVIS Normal urinary bladder. Normal visualized small intestine. Normal visualized colon. There is no pelvic fluid. There is no pelvic lymphadenopathy or mass lesion. Normal visualized pelvic arteries. CT/CT Chest, Abd, Pel w/Contrast IMPRESSION: 4.6 cm x 4.2 cm x 3.4 cm soft tissue mass in the ascending colon just proximal to the hepatic flexure. Electronically Signed: Adonay Ellington MD at 9:37 EDT ,
[2022-02-15 06:51] LABS: CREATININE FINGERSTICK 0.7 mg/dL (0.55-1.02); EGFR FINGERSTICK > 60.0000 mL/min (>60)
== END | disposition home or self-care (01) ==
PROVIDERS: PCP Family Medicine; Referring Provider Surgery; Visit Provider Surgery
DX: C18.9 Malignant neoplasm of colon, unspecified (principal)
CPT/HCPCS: 71260; 74177; Q9967

== ENCOUNTER 2022-02-21 13:34 | Inpatient (IN) | payer MEDICARE, SELFPAY ==
[2022-02-17 15:01] LABS: Hematocrit 35.3 % (37-47); Hemoglobin 10.7 g/dL (12.0-15.0); Mean Corp Hgb Conc 30.3 g/dL (32-36); Mean Corpuscular Hgb 25.2 pg (27.0-32.0); Mean Corpuscular Volume 83.1 fL (81-99); Mean Platelet Vol. 10.1 fl (6.2-12.0); Platelet Count 252 K/mm3 (150-450); RBC Distribution Width CV 19.9 % (11.6-14.6); RBC Distribution Width SD 58.8 fl (35.1-43.9); Red Blood Count 4.25 M/mm3 (4.2-5.4); White Blood Count 5.5 K/mm3 (4.4-11.0)
[2022-02-17 15:10] LABS: Prothrombin Time (Protime)PT. 12.6 SECONDS (11.7-14.9)
[2022-02-17 15:11] LABS: Partial Thromboplast Time 44.1 Seconds (24.1-36.2)
[2022-02-17 15:36] LABS: Anion Gap 5 (5-15); BUN 16 mg/dL (7-18); BUN/Creat Ratio 19.6 RATIO (10-20); Calcium,Total 9.2 mg/dL (8.5-10.1); Chloride 104 mmol/L (98-107); Creatinine, Serum 0.82 mg/dL (0.55-1.02); EST Glomerular Filtration Rate 72 mL/min (>60); Est Glom Filt Rate - Afr Amer 87 mL/min (>60); Glucose 109 mg/dL (74-106); Magnesium 2.2 mg/dL (1.6-2.6); Potassium 3.6 mmol/L (3.5-5.1); Sodium Level 140 mmol/L (136-145)
--- NOTE | 2022-02-18 09:45 | EKG12_ITS ---
Test Reason : PRE-OP Blood Pressure : / mmHG Vent. Rate : 070 BPM Atrial Rate : 070 BPM P-R Int : 136 ms QRS Dur : 142 ms QT Int : 428 ms P-R-T Axes : 071 -38 088 degrees QTc Int : 462 ms Normal sinus rhythm Left axis deviation Right bundle branch block Left ventricular hypertrophy with repolarization abnormality Lateral infarct , age undetermined Abnormal ECG Confirmed by NORMAN DUNHAM, DARWIN ([id number]), copy editor YANA PEREIRA ([id number]) on 02/18/2022 9:51:31 AM Referred By: Juan A Tinajero Confirmed By:JONATHAN AUSTIN MD
[2022-02-21] VITALS (14 sets, daily range): BP systolic 99–194; BP diastolic 46–88; PULSE 45–65; RESP 12–21; TEMP 36–36.8; O2SAT 93–100; BMI 20.9
--- NOTE | 2022-02-21 | COL._PTH ---
PATIENT: UMA SANTILLAN LOC: MS3 U#:[id number] AGE/SX: 81/F ROOM: WA311 RE02/21/[address]: Dr. Juan A Tinajero MD : 1940 BED: 1 DIS: 02/25/2022 SPEC #: [id number] RECD: 02/21/22 15:05 STATUS: YOHAN HALL #: [id number] CLAUDY: 02/21/22 00:[address]: Juan A Tinajero DEPT: SURGICAL PATHOLOGY RECD BY: Nicole Rosales ENTERED: 02/22/22 09:34 SP TYPE: COLON OTHR DR: Dr. Dillan German MD Tissues: Colon, NOS Procedures: Surgery Specimen Level HEADER OPERATION: ERAS, laparoscopic hemicolectomy PRE-OP DIAGNOSIS: Colon cancer TISSUE SUBMITTED: Right colon MICROSCOPIC DIAGNOSIS Right colon, hemicolectomy: Invasive mucinous adenocarcinoma. 22 out of 22 lymph nodes negative for metastatic carcinoma. Colonic and small intestinal donut, no pathologic diagnosis. See cancer summary in the comment section. SJ:rg 02/24/2022 COMMENT COLON CANCER SUMMARY Procedure: Right hemicolectomy Tumor site: Right (ascending) colon Tumor size: 6.5 x 5.5 x 2.5 cm Macroscopic tumor perforation: Not identified Histologic type: Mucinous adenocarcinoma Histologic grade: Grade 1 (well differentiated) Tumor extension: Tumor invades through the muscularis propria into pericolonic tissue. Margins: All margins are uninvolved by invasive carcinoma, high grade dysplasia, intramucosal adenocarcinoma and adenoma. The tumor is 9 cm away from the closest distal axial margin. Treatment effect: No known presurgical therapy. Lymphvascular invasion: Not identified Perineural invasion: Not identified Type of polyp in which invasive carcinoma arose: Tubulovillous adenoma Tumor deposits: Not identified Regional lymph nodes: Number of lymph nodes examined: 22 Number of lymph nodes involved: 0 Ancillary studies: See [id number] for complete details, Results of microsatellite instability study - positive (loss of mismatch protein; microsatellite instability detected) Complete loss of MLH-1. Additional pathologic findings: Colonic and small intestinal donut, no pathologic diagnosis. - omentum, no pathologic diagnosis. PATHOLOGIC STAGE: pT3 pN0 pMx The above summary is in compliance with [employer] [place] (CAP) Cancer Protocols Checklist and [place] [employer] Committee on Cancer (AJCC), Staging Manual, 8th Ed. Please make reference to previous specimen ([id number]) ascending colon, biopsy with diagnosis of ?consistent with invasive mucinous carcinoma.? Case has been reviewed in consultation with Dr. Lua who concurs with the above diagnosis. IDC:AM MICROSCOPIC DESCRIPTION Slides are reviewed. GROSS DESCRIPTION Received in fixative is one container labeled with the patient's name and designated right colon. The specimen consists of a right hemicolectomy specimen consisting of cecum with ascending colon and portion of transverse colon with attached pericolonic adipose tissue and omentum, segment of small intestine with attached mesenteric tissue. Appendix is not identified. Segment of cecum with ascending colon and transverse colon measures 19 cm in length and segment of small intestine measures 11 cm in length. Resection margins are stapled. The lumen contains a small amount of liquefied fecal material. 9 cm away from the distal resection margin and 3 cm away from the ileocecal valve, a cauliflower-like tumor mass is noted measuring 6.5 x 5.5 x 2.5 cm. The serosal surface overlying the mass is inked black. Pericolonic adipose tissue is fixed in lymph node-revealing solution. A donut-shaped piece of tissue is also noted measuring 4.5 x 1.5 x 0.6 cm. More dictation will follow after fixation. / GRACIELA:stephanie 02/22/2022 Sections of the tumor wall mas reveal full thickness involvement by the tumor. No additional mucosal lesion is identified. Sections of the pericolonic adipose tissue reveal multiple lymph nodes. Focal congested areas are noted in the large intestine. Sections of pericolonic tissue reveal multiple lymph nodes. The largest lymph node measures 1.5 cm in greatest dimension. Sections of the omentum do not reveal any mass lesions. Chemical Treatment Plant Technician sections are submitted in 20 cassettes as follows: 1 - donut, 2??proximal and distal resection margins, 3-6 - tumor, 7 - ileocecal valve and small and large bowel, 8???congested areas, large bowel, 9-12 - each cassette containing one bisected lymph node, 13 - multiple lymph nodes, 14 - one bisected lymph node, 15 - one bisected lymph node, 16 - one serially sectioned lymph node, 17 - one bisected lymph node, 18 - multiple lymph nodes, 19 - one serially sectioned lymph node, 20 - one bisected lymph node and omentum. / SJ:rg 02/23/2022 TC:0 CPT: 86345, 87636
[2022-02-21] MEDS: Lactated Ringers 1,000 ML 40 ML IV (10:00)
[2022-02-21] MEDS: Gabapentin 600 MG Tablet PO (10:19)
[2022-02-21] MEDS: Acetaminophen 500 MG Tablet 1000 MG PO ×2 (10:19→17:27)
--- NOTE | 2022-02-21 10:31 | HP.PCM_ITS ---
History and Physical Date of Admission: 02/21/22 Intake Vital Signs 02/17/22 08:51 BP 139/83 H Blood Pressure Location Rt brachial Position Sitting Respiration 16 Pulse 66 Pulse Source Monitor Temp 97.2 F L Temp Source Temporal Pulse Oximetry (%) 99 Oxygen Delivery Method room air Intake Visit Reasons: F/U CT RESULTS 02/15/2022 Chief Complaint: F/U Colonoscopy and CT Results Insurance Follow Up Representative Required: No Is patient in pain?: No Allergies ciprofloxacin [From Cipro] Allergy (Mild, Verified 02/17/22 08:52) hives iodine Allergy (Mild, Verified 02/17/22 08:52) Rash latex Adverse Reaction (Verified 02/17/22 08:52) Hives mesalamine Allergy (Mild, Uncoded 02/11/22 07:30) Hives PNEUMONIA BOOSTER Allergy (Uncoded 02/11/22 07:30) Other Medications Valerian Root 400 mg PO PRN PRN 10/17/14 [History Confirmed 02/17/22] ascorbic acid (vitamin C) 500 mg PO PRN PRN 10/17/14 [History Confirmed 02/17/22] hydrochlorothiazide 12.5 mg PO DAILY 10/17/14 [History Confirmed 02/17/22] msdhuddh-ejr-KZ-lycopen-lutein 1 ea PO DAILY 10/17/14 [History Confirmed 02/17/22] lorazepam 0.5 mg PO DAILY PRN PRN 10/31/17 [History Confirmed 02/17/22] calcium carbonate-vitamin D3 2 tab PO DAILY@0800 12/28/17 [History Confirmed 02/17/22] cyclosporine 1 drp EACH EYE BID 12/28/17 [History Confirmed 02/17/22] sertraline 50 mg PO DAILY 12/28/17 [History Confirmed 02/17/22] ferrous sulfate 142 mg (45 mg iron) tablet,extended release 142 mg PO DAILY 02/03/22 [History Confirmed 02/17/22] astragalus root 250 mg PO PRN PRN 02/09/22 [History Confirmed 02/17/22] cholecalciferol (vitamin D3) [Vitamin D3] 25 mcg PO DAILY 02/09/22 [History Confirmed 02/17/22] loratadine-pseudoephedrine [Claritin-D 12 Hour] 1 tab PO Q12H PRN 02/09/22 [History Confirmed 02/17/22] diphenhydramine HCl 25 mg tablet 50 mg PO DIRECTED #2 tab 02/11/22 [Rx Confirmed 02/17/22] prednisone 50 mg tablet 50 mg PO DIRECTED #3 tab 02/11/22 [Rx Confirmed 02/17/22] metronidazole 500 mg tablet See Rx Instructions PO .COMPLEX #3 tab 02/17/22 [Rx Confirmed 02/17/22] neomycin 500 mg tablet See Rx Instructions PO .COMPLEX #6 tab 02/17/22 [Rx Confirmed 02/17/22] PFSH Medical History Abnormal ECG Alcohol use Anemia Anxiety Anxiety Arthritis Back pain Blackout Cancer Chronic cholecystitis Colitis Former smoker Hemorrhoids History of breast cancer History of colitis History of echocardiogram History of irregular heartbeat History of stress test HLD (hyperlipidemia) Hypertension Injury of back Injury of head and neck Normal stress echocardiogram Pancreatitis Post-menopausal Wears dentures Wears glasses Wears hearing aid Surgical History History of cardiac catheterization Hx of appendectomy Hx of bilateral cataract extraction Hx of left mastectomy S/P colonoscopy S/P laparoscopic cholecystectomy (~01/03/18) S/P lumpectomy of breast Family History Mother Hypertension CVA (cerebral vascular accident) Sister Hypertension Father CVA (cerebral vascular accident) Social History Smoking Status: Former smoker HPI HPI HPI: UMA SANTILLAN, is a 81 F who presents to the office today for discussion of surgery. Patient had colonoscopy for anemia and was found to have a large mass in the right colon which came back as invasive adenocarcinoma. ROS General General: Yes weight change and breast cancer; No appetite, fatigue, colon cancer or weakness HEENT HEENT: No difficulty swallowing, eye injury, eye surgery, swollen glands or hoarseness Endo Endocrine: No thyroid disease, diabetes mellitus, thyroid cancer, Hair loss, heat intolerance or cold intolerance Skin Skin: No rash or changing moles Breast Breast: No left breast lump, right breast lump, nipple discharge, breast pain, abnormal mammogram, abnormal US or breast enlargement Musc Musculoskeletal: Yes arthritis; No back problems, rheumatoid arthritis, gout or joint pain Cardio Cardiovascular: No murmur, pacemaker, heart disease, atrial fibrillation, high blood pressure, heart attack, heart stent, palpitations, shortness of breat with exertion or chest pain Psych Psychiatric: Yes anxiety; No depression or hearing voices Resp Respiratory: No shortness of breath, No sleep apnea, No cough, No COPD, No asthma, No emphysema and No wheezing Gastro Gastrointestinal: Yes abdominal pain, No nausea or vomiting, No diarrhea, No constipation, No blood in stool, No acid reflux, No hemorrhoids, No ulcers, No gallbladder problem and No black,tarry stools Jerald Hematologic: No blood thinners, No blood disorders, No bleeding, Yes anemia and No blood clots Neuro Neurologic: No system reviewed and no additional complaints, except as documented, No as per HPI, No abnormal gait, No abnormal hearing, No abnormal movements, No abnormal speech, No behavioral changes, No burning sensations, No confusion, No convulsions, No disequilibrium, No dizziness, No localized weakness, No frequent falls, No headache(s), No lack of coordination, No loss of vision, No memory loss, No numbness, No other visual disturbances, No radicular pain, No restless legs, No sensory deficit, No syncope, No tingling, No tremor(s), No weakness and No other Exam Const General: cooperative Orientation: alert and oriented x3 HENIN Head: normal to inspection Neck Neck: normal visual inspection and full ROM Chest Chest palpation & inspection: normal inspection of the chest Resp Effort & Inspection: normal respiratory effort Auscultation: clear to auscultation bilaterally Cardio Rate: regular rate Rhythm: regular rhythm GI Inspection: non-distended Palpation: soft and nontender Skin General: no rashes or lesions noted Neuro General: patient alert and patient oriented x3 Extrem General: full ROM Psych Appearance: grossly normal Mental Status: mental status grossly normal Assessment and Plan Assessment and Plan (1) Colon cancer: Status: Acute Qualifiers: Colon location: ascending Qualified Code(s): C18.2 - Malignant neoplasm of ascending colon Plan - Dr. Juan A Tinajero MD: Patient has invasive adenocarcinoma in the ascending colon just proximal to the hepatic flexure. I discussed right hemicolectomy with the patient in detail. I discussed the risks including not limited to bleeding, infection, injury to other nearby organs. I explained the surgery in detail and all questions were answered. I also explained ERAS procedure with her. I will order her a bowel prep and bowel prep antibiotics. Juan A Tinajero MD Pager: [facility] [address] [place] [address], [address] [place] [address] Office: I have re-examined the patient. There are no clinical changes since date of exam.
[2022-02-21 10:36] LABS: Bedside Glucose 151 mg/dL (74-106)
[2022-02-21] MEDS: BUPIVACAINE LIPOSOME/PF 20 ML VIAL OPERA.SITE (11:22)
--- NOTE | 2022-02-21 13:37 | OP.PCM_ITS ---
Problems Associated Problem List Diagnoses (1) Colon cancer: Report of Operation Date of Procedure: 02/21/22 Pre-Operative Diagnosis: Colon cancer of the ascending colon Post-Operative Diagnosis: Same Surgery/Procedure Performed:: Laparoscopic assisted right hemicolectomy Specimen's removed: Right colon Description of Procedure: Patient was brought back to the operating room and general anesthesia was induced. Lin catheter was placed. The abdomen was prepped and draped in usual sterile fashion. Midline incision was then made above the umbilicus and deepened to the fascia was was elevated and incised. Port was placed into the abdomen and it was insufflated 15 mmHg. Next under direct visualization a TAP block was performed bilaterally. Next under direct visualization a suprapubic 5 mm port and the left lower quadrant 5 mm port was placed. The cecum was identified and grasped and its adhesions laterally were taken down using Enseal. Next the terminal ileum was followed down and its adhesions were taken down as well. The white line was dissected superiorly until the hepatic flexure was taken down. Next the pedicle to the right colon w as identified. The right colic artery was then clipped and divided. Next the midline incision was extended and a wound protector was placed and the laparoscopic ports were removed. The right colon was delivered through the incision. The right middle colic was then identified and divided after clips were placed. Next the colon was divided using MANFRED stapler. The distal small bowel was also divided using MANFRED stapler. The specimen was sent. Next the corner of each staple line was taken down with scissors and a MANFRED stapler was placed in the transverse colon and distal small bowel and they were stable together in a [id number] functional end-to-end fashion. A crotch stitch of 3- 0 silk was then placed. Next TX 60 was used to close the enterostomy after staple line was inspected. The mesentery was then closed with a running 3-0 Vicryl suture. The anastomosis was inspected once more and appeared to be hemostatic and was reduced into the abdomen. The abdomen was irrigated and suctioned dry. Next the wound protector was removed and gown and gloves were changed. The fascia was then reapproximated in the midline using #1 PDS suture starting at the top and bottom meeting in the middle. The subcutaneous tissue was irrigated and suctioned dry. The skin was closed with interrupted 4-0 Monocryl sutures and Steri-Strips. Bandages were applied. The patient's Lin was taken out in the case and then she was awoken and taken to PACU in stable condition. This surgery was for curative intent. Admit VTE Documentation VTE Mechan Device Prophylaxis: SCD's
[2022-02-21] MEDS: Lactated Ringers 1,000 ML 80 ML IV (14:12)
[2022-02-22] VITALS (19 sets, daily range): BP systolic 122–160; BP diastolic 47–69; PULSE 58–82; RESP 12–18; TEMP 36.2–36.9; O2SAT 77–100; BMI 20.9
[2022-02-22] MEDS: Acetaminophen 500 MG Tablet 1000 MG PO ×4 (00:11→23:50)
[2022-02-22] MEDS: Lactated Ringers 1,000 ML 80 ML IV ×2 (00:12→14:12)
--- NOTE | 2022-02-22 00:35 | NURSING ---
This nurse and additional nurse were assisting patient to toilet. Pt assisted to sitting position denied dizziness or lightheadedness. Went to assist pt to standing position upon which pt had denied dizziness, but notable pallor. Pt unable to hold self up, eyes rolled back in head. Pt denies loss of consciousness but was unable to answer this RN's questions. Pt assisted back to bed, staff assist called. Upon return to bed pt A & O x 3 within 5 seconds, VS obtained x 2.
[2022-02-22 00:46] LABS: Bedside Glucose 178 mg/dL (74-106)
[2022-02-22 06:22] LABS: Hematocrit 23.7 % (37-47); Hemoglobin 7.3 g/dL (12.0-15.0); Mean Corp Hgb Conc 30.8 g/dL (32-36); Mean Corpuscular Hgb 25.2 pg (27.0-32.0); Mean Corpuscular Volume 81.7 fL (81-99); Mean Platelet Vol. 9.4 fl (6.2-12.0); Platelet Count 249 K/mm3 (150-450); RBC Distribution Width CV 19.5 % (11.6-14.6); RBC Distribution Width SD 57.8 fl (35.1-43.9); White Blood Count 7.8 K/mm3 (4.4-11.0)
[2022-02-22 06:51] LABS: Anion Gap 10 (5-15); BUN 11 mg/dL (7-18); BUN/Creat Ratio 14.3 RATIO (10-20); Calcium,Total 7.8 mg/dL (8.5-10.1); Chloride 97 mmol/L (98-107); Creatinine, Serum 0.77 mg/dL (0.55-1.02); EST Glomerular Filtration Rate 77 mL/min (>60); Est Glom Filt Rate - Afr Amer 93 mL/min (>60); Estimated Creatinine Clearance 41.05 ml/min; Glucose 133 mg/dL (74-106); Potassium 3.5 mmol/L (3.5-5.1); Sodium Level 132 mmol/L (136-145)
--- NOTE | 2022-02-22 06:58 | CT_ITS ---
STUDY: CT ABDOMEN AND PELVIS WITH CONTRAST REASON FOR EXAM: Female, 81 years old. Acute blood loss. Colon surgery 24 hours prior. RADIATION DOSAGE (If Supplied By Facility): CTDIvol = ( 13.63 ) mGy, DLP = ( 737.68 ) mGycm TECHNIQUE: Transaxial images were obtained from the dome of the diaphragm to the symphysis pubis without oral contrast. IV 100mL Isovue-300 was administered. Sagittal and coronal images were reconstructed. Individualized dose optimization techniques were used for this CT. COMPARISON: None. FINDINGS: Small amount of the intraperitoneal air within the peritoneal fat in keeping with recent surgery. There are increased markings at the lung bases suggestive of bibasilar atelectasis. Tiny right pleural effusion. The visualized portions of the heart are within normal limits. Moderate amount of the fluid in the pelvis as well as in the perihepatic and perisplenic regions. There is a 4.9 cm x 10.6 cm well-defined area of increased attenuation in the deep roots of the mesentery. This may represent a hematoma. Normal liver. The patient is status post cholecystectomy. Normal spleen. Normal pancreas. Normal bilateral adrenal glands. Normal right kidney. Normal left kidney. Normal visualized stomach. Normal small intestine. The patient is status post right hemicolectomy. The suture line is visualized. The appendix is visualized and appears normal. There is diffuse atherosclerotic calcification of the abdominal aorta, without a demonstrated aneurysm. Normal inferior vena cava. Normal retroperitoneum. A KILPATRICK catheter is seen within a decompressed urinary bladder. I suspect a 1.8 cm cyst in the right ovary. Normal abdominal wall. Normal osseous structures. CT/Abdomen/Pelvis WITH Contrast IMPRESSION: Status post right hemicolectomy with postoperative changes. Ascites. Findings suggestive of a 4.9 signed by 10.6 cm hematoma in the deep of the mesentery. Electronically Signed: Adonay Ellington MD at 9:08 EDT ,
--- NOTE | 2022-02-22 09:15 | COL_PTH ---
PATIENT: UMA SANTILLAN LOC: MS3 U#:[id number] AGE/SX: 81/F ROOM: CO311 RE02/21/[address]: Dr. Juan A Tinajero MD : 1940 BED: 1 DIS: 02/25/2022 SPEC #: [id number] RECD: 02/22/22 12:34 STATUS: YOHAN HALL #: [id number] CLAUDY: 02/22/22 09:[address]: Juan A Tinajero DEPT: SURGICAL PATHOLOGY RECD BY: Brenna Sheth ENTERED: 02/23/22 09:27 SP TYPE: COLON OTHR DR: Dr. Dillan German MD Tissues: Small intestine biopsy Procedures: Surgery Specimen Level III Surgery Specimen Level V HEADER OPERATION: Exploratory laparoscopy, laparotomy PRE-OP DIAGNOSIS: Mesenteric hematoma TISSUE SUBMITTED: Small bowel segment MICROSCOPIC DIAGNOSIS Small bowel, segmental resection: Mesenteric tissue with hematoma (6 cm in greatest dimension). Small bowel donut, no pathologic diagnosis. GRACIELA:stephanie 02/24/2022 MICROSCOPIC DESCRIPTION Slides are reviewed. GROSS DESCRIPTION Received in fixative is one container labeled with the patient's name and designated small bowel segment. The specimen consists of a segment of small bowel measuring 22 cm in length. Attached mesentery measures up to 3.5 cm in greatest width. A focal area of mesentery shows a hematoma measuring 6 x 4.5 x 1.5 cm. This area is 7 and 9 cm away from the resection margin. The resection margins are stapled. No mucosal lesion is identified. Sections will be submitted after fixation. / GRACIELA:stephanie 02/22/2022 Also present in the container a donut-shaped piece of bowel tissue measuring 3.5 x 1.5 x 0.5 cm. Sections of mesenteric tissue do not reveal any obviously enlarged lymph node. Pharmacology Associate sections are submitted in four?cassettes as follows: 1 - donut-shaped piece of tissue, 2 - resection margins, 3 - bowel wall, 4??mesenteric tissue with hematoma. / GRACIELA:stephanie 02/23/2022 TC:5 CPT: 36222, 01367
--- NOTE | 2022-02-22 09:17 | PCM.PN.BLA ---
Progress Note Patient had Lin catheter placed overnight for retention. The patient is complaining of some right-sided abdominal pain this morning. Her hemoglobin dropped to 7.3 and it was 10.5 preoperatively. There was minimal blood loss during the case so I ordered a CT scan to evaluate and there appears to be a mesenteric hematoma. I discussed this with the patient I will take her back for laparoscopic exploration to evacuate the hematoma and attempt to stop the bleed. I discussed the risks of the procedure including allergy to bleeding, infection, injury to surrounding organs. Patient understands the risks as well to proceed. I have also ordered 2 units of blood to be transfused. Juan A Tinajero MD Pager: [facility] [address] [place] [address], [address] [place] [address] Office:
--- NOTE | 2022-02-22 09:50 | CASEMGMT ---
RN CM in to pt room. Pt is currently off floor, RN CM to complete assessment at a later time.
[2022-02-22] MEDS: Bupivacaine Mpf 0.5% 30 ML VIAL (11:20)
--- NOTE | 2022-02-22 11:55 | PCM.OPRPT ---
Problems Associated Problem List Diagnoses (1) Postoperative haemorrhage: Report of Operation Date of Procedure: 02/22/22 Pre-Operative Diagnosis: Postoperative hematoma Post-Operative Diagnosis: Postoperative hematoma Surgery/Procedure Performed:: Exploratory laparoscopy with small bowel resection Specimen's removed: Small bowel segment Estimated Blood Loss (mL): 1500 cc Description of Procedure: Patient was brought back to the operating room and general anesthesia was induced. The abdomen was prepped and draped in usual sterile fashion. The prior 5 mm ports were incised and a 5 mm port was placed in the suprapubic incision. The abdomen was insufflated 15 mmHg. Another port was placed in the left lower quadrant. A 10 mm port was placed in left lower quadrant as well. Next the abdomen was inspected and hematoma was suctioned as well as free fluid. There was approximately 1500 cc of fluid in the abdomen. After all of the hematoma was suctioned and the abdomen was irrigated the abdomen was inspected. No active bleeding was identified. The right colon pedicle and right middle colic pedicle were identified and the clips were still in place and did not appear to be the source of bleeding. The right retroperitoneum was inspected and irrigated and suctioned and inspected again and there was no active bleeding there either. There was no retroperitoneal hematoma. The ileocolic anastomosis was inspected and did not appear to be the source of the bleeding. The mesenteric defect was inspected and there was no active bleeding or hematoma there. The only abnormality was an area of small bowel mesentery containing a hematoma and some bleeding. It is possible that this mesentery was injured during the last surgery either by tension or iatrogenic. Next the midline incision was opened and the sutures were removed. The small bowel was brought through this midline incision and resected using MANFRED staplers and its mesentery was taken down using impact LigaSure. Next the small bowel was reanastomosed using a MANFRED stapler and a crotch suture was placed using 3-0 Vicryl. TX 60 was used to close the enterostomy. The small bowel mesentery was reapproximated using a running 3-0 Vicryl suture. There appeared to be good hemostasis. Next the abdomen was irrigated and suctioned dry and there not appear to be ongoing bleeding. The fascia was then closed with #1 PDS suture starting at the top and bottom meeting in the middle. Subcutaneous tissue was irrigated and the left lower quadrant 12 mm port fascia was closed with 0 Vicryl suture. All the skin incisions were closed with interrupted 4-0 Monocryl suture. Steri-Strips and bandages were applied. Patient was awoken and taken to PACU in stable condition. Admit VTE Documentation VTE Mechan Device Prophylaxis: SCD's
[2022-02-22] MEDS: hydroCHLOROthiazide 12.5mg 12.5 MG PO (13:51)
--- NOTE | 2022-02-22 14:15 | CASEMGMT ---
LILLY HOPPER Assessment: Face to Face with pt for initial transition planning/care coordination assessment. LILLY HOPPER introduced self and role at [facility], pt voices understanding and consents to assessment. Pt is A/O x4 and answers all questions appropriately at this time. Pt sitting up in bed in no distress. Care providers, pharmacy, and demographics verified/updated. Admitting Dx: hemicolectomy PCP:M[facility]at Specialists:PATRICIA Tinajero; oncologist from for her breast; [facility] onc, pt unsure of name Preferred Pharmacy: [facility] Retail Insurance: [employer] [facility] Prescription Benefit: yes LW/HPOA: Pt has a LW and DPOA on file at [facility]. Her DPOA is her son, Ulises Haynes. LNOK: Davidson Galdino, ; Chas Ahmadi, son Living Arrangements: Pt lives with and 15 year old grandson in a single story house with 2 steps to enter without a rail. Pt reports she is I in ADL's and denies concerns at home. Transportation: Pt drives self and denies concerns with transportation. DME/HHC/SNF: Pt has a lift chair at home, denies hx of HHC or SNF stays. Pt states no concerns with going home at time of dc. Pt states her dc plan can be discussed with her DPOA if needed. She intends to return home without any needs. Pt states no further concerns/needs. CM to follow. Advised pt to ask CM if any further question/concerns/needs arise, voices understanding. Pt Goal: Home Plan: Home
[2022-02-22 16:23] LABS: Hematocrit 29.9 % (37-47); Hemoglobin 9.9 g/dL (12.0-15.0)
[2022-02-22 16:43] LABS: Carcinoembryonic Antigen 28.3 ng/mL (0.0-4.7)
[2022-02-22 23:07] LABS: Hematocrit 29.3 % (37-47); Hemoglobin 9.7 g/dL (12.0-15.0)
[2022-02-23] VITALS (8 sets, daily range): BP systolic 132–156; BP diastolic 57–75; PULSE 70–82; RESP 16–18; TEMP 36.6–36.8; O2SAT 95–98; BMI 20.9
[2022-02-23 04:42] LABS: Anion Gap 4 (5-15); BUN 6 mg/dL (7-18); BUN/Creat Ratio 12.5 RATIO (10-20); Calcium,Total 8.1 mg/dL (8.5-10.1); Chloride 105 mmol/L (98-107); Creatinine, Serum 0.48 mg/dL (0.55-1.02); EST Glomerular Filtration Rate 133 mL/min (>60); Est Glom Filt Rate - Afr Amer 161 mL/min (>60); Estimated Creatinine Clearance 41.05 ml/min; Glucose 103 mg/dL (74-106); Potassium 3.3 mmol/L (3.5-5.1); Sodium Level 141 mmol/L (136-145)
[2022-02-23] MEDS: Acetaminophen 500 MG Tablet 1000 MG PO ×4 (06:02→23:56)
[2022-02-23 06:08] LABS: Absolute Lymphocyte Count 1.32 X10^3/uL (0.83-4.51); Absolute Neutrophil Count 5.3 X10^3/uL (2.0-7.7); Basophil# 0.02 X10^3/uL; Basophil% 0.3 % (0-1); Hematocrit 28.3 % (37-47); Hemoglobin 9.3 g/dL (12.0-15.0); Lymphocyte # 1.32 X10^3/ul (0.83-4.51); Lymphocyte % 18.7 % (19-41); Mean Corp Hgb Conc 32.9 g/dL (32-36); Mean Corpuscular Volume 82.3 fL (81-99); Monocyte# 0.44 X10^3/uL; Monocyte% 6.2 % (0-10); NRBC Flagged by Analyzer 0 % (0-5); Neutrophil # 5.25 X10^3/uL (2.7-7.7); Neutrophil % 74.4 % (47-70); Platelet Count 187 K/mm3 (150-450); RBC Distribution Width CV 17.7 % (11.6-14.6); RBC Distribution Width SD 52.8 fl (35.1-43.9); Red Blood Count 3.44 M/mm3 (4.2-5.4); White Blood Count 7.1 K/mm3 (4.4-11.0)
[2022-02-23] MEDS: Potassium Chloride 10mEq/100mL 10 MEQ/100 ML IV.SOLN. 100 MEQ IV BOLUS ×2 (08:12→10:01)
--- NOTE | 2022-02-23 08:47 | PCM.PN.SRG ---
Subjective Subjective Patient reports doing very well with minimal pain. She is belching with no flatus yet. Objective Data Objective Data Vital Signs: Vital Signs Temp Pulse Resp BP Pulse Ox 98.1 F 70 16 147/63 H 95 02/23/22 05:39 02/23/22 05:39 02/23/22 05:39 02/23/22 05:39 02/23/22 08:05 Oxygen Flow Rate (L/min) 2 Oxygen Delivery Method Room Air Weight: 125 lb 10.616 oz Body Mass Index (BMI) 20.9 Intake & Output: Intake and Output for Last 24 Hours 02/21/22 02/22/22 02/23/22 23:59 23:59 23:59 Intake Total 3702 / 3702 2200 / 2300 1100 / 1100 Output Total 120 / 120 3150 / 3150 650 / 650 Balance 3582 / 3582 -950 / -850 450 / 450 Lab / Micro Data Result Diagrams: 02/23/22 04:16 02/23/22 04:16 Labs: Laboratory Results - last 24 hr 02/21/22 09:58: Carcinoembryonic Ag 28.3 H 02/22/22 09:12: Blood Type O POSITIVE, Antibody Screen NEGATIVE, Crossmatch See Detail 02/22/22 16:05: Hgb 9.9 L, Hct 29.9 L 02/22/22 22:15: Hgb 9.7 L, Hct 29.3 L 02/23/22 04:16: WBC 7.1, RBC 3.44 L, Hgb 9.3 L, Hct 28.3 L, MCV 82.3, MCH 27.0, MCHC 32.9 D, RDW Std Deviation 52.8 H, RDW Coeff of Michelle 17.7 H, Plt Count 187, MPV 10.0, Immature Gran % (Auto) 0.400, Neut % (Auto) 74.4 H, Lymph % (Auto) 18.7 L, Miller % (Auto) 6.2, Eos % (Auto) 0.0, Baso % (Auto) 0.3, Absolute Neuts (auto) 5.3, Absolute Lymphs (auto) 1.32, Nucleated RBC % 0 02/23/22 04:16: Sodium 141, Potassium 3.3 L, Chloride 105, Carbon Dioxide 32.0, Anion Gap 4 L, BUN 6 L, Creatinine 0.48 L, Estim Creat Clear Calc 41.05, Est GFR (MDRD) Af Amer 161, Est GFR (MDRD) Non-Af 133, BUN/Creatinine Ratio 12.5, Glucose 103, Calcium 8.1 L 02/23/22 04:16: Hgb Cancelled, Hct Cancelled Micro: Microbiology 02/21/22 09:48 Interface Orders SARS-CoV-2 Antigen (Rapid) - Final Radiography Diagnostic Testing: Radiology Impression Abdomen/Pelvis CT 02/22/22 06:58 IMPRESSION: Status post right hemicolectomy with postoperative changes. Ascites. Findings suggestive of a 4.9 signed by 10.6 cm hematoma in the deep of the mesentery. Electronically Signed: Adonay Ellington MD at 9:08 EDT , Physical Exam Const oriented x3 and no apparent distress Resp normal respiratory effort GI soft to palpation Assessment & Plan Assessment/Plan (1) Acute blood loss anemia: (2) Colon cancer: QUALIFIERS: Colon location: ascending Qualified Code(s): C18.2 - Malignant neoplasm of ascending colon PLAN: The patient is feeling much better this morning. Her hemoglobins have remained stable. Her abdomen is soft but she is not passing any flatus yet. She likely has a postoperative ileus due to the bleeding. Recommend continue exception of chips until she has bowel function then we may advance her diet as tolerated. Juan A Tinajero MD Pager: [facility] [address] [place] [address], [address] [place] [address] Office:
[2022-02-23] MEDS: Sertraline 50 MG Tablet PO (10:03)
[2022-02-23] MEDS: hydroCHLOROthiazide 12.5mg 12.5 MG PO (10:03)
[2022-02-23 10:21] LABS: Hematocrit 28.5 % (37-47); Hemoglobin 9.3 g/dL (12.0-15.0)
--- NOTE | 2022-02-23 14:39 | NURSING ---
Pt had stated she had passed gas. Dr Tinajero called and ordered clears for today and may possibly advance diet tomorrow.
[2022-02-23] MEDS: 0.9% Saline Lock 10 ML Syringe IV (21:27)
[2022-02-24 05:45] VITALS: BP 147/77; PULSE 74; RESP 18; TEMP 36.6; O2SAT 96
[2022-02-24] MEDS: Acetaminophen 500 MG Tablet 1000 MG PO ×3 (06:03→17:31)
[2022-02-24 06:24] LABS: Absolute Lymphocyte Count 1.03 X10^3/uL (0.83-4.51); Absolute Neutrophil Count 3.9 X10^3/uL (2.0-7.7); Basophil# 0.03 X10^3/uL; Basophil% 0.6 % (0-1); Eosinophil# 0.04 X10^3/uL; Eosinophils% 0.8 % (0-5); Hematocrit 23.9 % (37-47); Hemoglobin 7.6 g/dL (12.0-15.0); Lymphocyte # 1.03 X10^3/ul (0.83-4.51); Lymphocyte % 19.5 % (19-41); Mean Corp Hgb Conc 31.8 g/dL (32-36); Mean Corpuscular Hgb 26.8 pg (27.0-32.0); Mean Corpuscular Volume 84.2 fL (81-99); Mean Platelet Vol. 9.6 fl (6.2-12.0); Monocyte# 0.29 X10^3/uL; Monocyte% 5.5 % (0-10); NRBC Flagged by Analyzer 0 % (0-5); Neutrophil # 3.87 X10^3/uL (2.7-7.7); Neutrophil % 73.2 % (47-70); Platelet Count 156 K/mm3 (150-450); RBC Distribution Width CV 18.5 % (11.6-14.6); RBC Distribution Width SD 57.1 fl (35.1-43.9); Red Blood Count 2.84 M/mm3 (4.2-5.4); White Blood Count 5.3 K/mm3 (4.4-11.0)
[2022-02-24 06:53] LABS: Anion Gap 5 (5-15); BUN 10 mg/dL (7-18); Calcium,Total 7.9 mg/dL (8.5-10.1); Chloride 103 mmol/L (98-107); Creatinine, Serum 0.36 mg/dL (0.55-1.02); EST Glomerular Filtration Rate 186 mL/min (>60); Est Glom Filt Rate - Afr Amer 225 mL/min (>60); Estimated Creatinine Clearance 41.05 ml/min; Glucose 98 mg/dL (74-106); Potassium 3.1 mmol/L (3.5-5.1); Sodium Level 139 mmol/L (136-145)
[2022-02-24 07:47] VITALS: O2SAT 95
--- NOTE | 2022-02-24 08:21 | PN.SURG_ITS ---
Subjective Subjective Patient reports she is doing well. She tolerated clears. She is passing flatus and has had several watery bowel movements. No nausea or vomiting. Objective Data Objective Data Vital Signs: Vital Signs Temp Pulse Resp BP Pulse Ox 97.8 F 74 18 147/77 H 95 02/24/22 05:45 02/24/22 05:45 02/24/22 05:45 02/24/22 05:45 02/24/22 07:47 Oxygen Flow Rate (L/min) 2 Oxygen Delivery Method Room Air Weight: 125 lb 10.616 oz Body Mass Index (BMI) 20.9 Intake & Output: Intake and Output for Last 24 Hours 02/22/22 02/23/22 02/24/22 23:59 23:59 23:59 Intake Total 2200 / 2300 1975.25 / 1975.25 300 / 300 Output Total 3150 / 3150 650 / 650 Balance -950 / -850 1325.25 / 1325.25 300 / 300 Lab / Micro Data Result Diagrams: 02/24/22 05:42 02/24/22 05:42 Labs: Laboratory Results - last 24 hr 02/23/22 10:10: Hgb 9.3 L, Hct 28.5 L 02/24/22 05:42: WBC 5.3, RBC 2.84 L, Hgb 7.6 L, Hct 23.9 L, MCV 84.2, MCH 26.8 L , MCHC 31.8 L, RDW Std Deviation 57.1 H, RDW Coeff of Michelle 18.5 H, Plt Count 156, MPV 9.6, Immature Gran % (Auto) 0.400, Neut % (Auto) 73.2 H, Lymph % (Auto) 19.5, [place] % (Auto) 5.5, Eos % (Auto) 0.8, Baso % (Auto) 0.6, Absolute Neuts (auto) 3.9, Absolute Lymphs (auto) 1.03, Nucleated RBC % 0 02/24/22 05:42: Sodium 139, Potassium 3.1 L, Chloride 103, Carbon Dioxide 31.0, Anion Gap 5, BUN 10, Creatinine 0.36 L, Estim Creat Clear Calc 41.05, Est GFR (MDRD) Af Amer 225, Est GFR (MDRD) Non-Af 186, BUN/Creatinine Ratio 28.0 H, Glucose 98, Calcium 7.9 L Micro: Microbiology 02/21/22 09:48 Interface Orders SARS-CoV-2 Antigen (Rapid) - Final Physical Exam Resp normal respiratory effort Cardio regular rate and regular rhythm GI soft to palpation Inspection: Negative for abdominal distention Assessment & Plan Assessment/Plan (1) Acute blood loss anemia: (2) Colon cancer: QUALIFIERS: Colon location: ascending Qualified Code(s): C18.2 - Malignant neoplasm of ascending colon PLAN: The patient started passing flatus yesterday evening was started on clear liquid diet which she tolerated with no nausea or vomiting. This morning her abdomen is soft and nondistended. She does not report any belching. She has been urinating since Lin is removed. Her hemoglobin did drop to 7.3 this morning. I am rechecking this at 10 AM and if that is stable I will start a diet this afternoon. Clinically she does not appear to be having ongoing bleeding. Her abdomen appears benign and she is feeling quite well. She is not complaining of any dizziness or lightheadedness and would like to advance her diet and go home if possible. If the 10 AM hemoglobin is stable she will resume a diet and if it does not then I will consider another laparoscopy or CT scan. Juan A Tinajero MD Pager: [facility] [address] [place] [address] [address] [place] [address] Office:
[2022-02-24] MEDS: Ensure Clear 120 ML Liquid PO ×3 (08:24→17:30)
[2022-02-24 08:28] VITALS: BP 150/67; PULSE 84; RESP 18; TEMP 36.6; O2SAT 96
[2022-02-24] MEDS: Sertraline 50 MG Tablet PO (08:36)
[2022-02-24] MEDS: hydroCHLOROthiazide 12.5mg 12.5 MG PO (08:36)
[2022-02-24 10:30] LABS: Hematocrit 26.4 % (37-47); Hemoglobin 8.4 g/dL (12.0-15.0)
[2022-02-24] MEDS: Potassium Chloride 10mEq/100mL 10 MEQ/100 ML IV.SOLN. 100 MEQ IV BOLUS (12:10)
[2022-02-24] MEDS: Potassium Chloride 10mEq/100mL 10 MEQ/100 ML IV.SOLN. 8 MEQ IV BOLUS ×2 (13:27→14:45)
[2022-02-24 15:00] VITALS: BP 125/60; PULSE 77; RESP 18; TEMP 36.7; O2SAT 96
--- NOTE | 2022-02-24 15:10 | PCM.DC ---
Discharge Instructions Follow Up Care Test Results: Test results from this visit will be discussed in further detail at your follow-up appointment, if applicable. Discharge Plan Admission Admit Date/Time: 02/21/22 13:34 Primary Reason for Your Visit: Colon cancer Attending Provider: Juan A Tinajero Primary Care Provider: Dillan German Instructions Additional Instructions / Restrictions: Please continue on transitional diet provided until follow up in the office with Dr. Tinajero. You may take Tylenol for pain as needed. Discharge Orders/Prescriptions Prescriptions: Continued Slow Fe 142 mg (45 mg iron) tablet extended release 142 mg PO DAILY RF: 0 ascorbic acid (vitamin C) 500 MG tablet 500 mg PO PRN PRN (Reason: Feeling sick) RF: 0 hydrochlorothiazide 25 MG tablet 12.5 mg PO DAILY RF: 0 zlvdodvc-bnq-QY-lycopen-lutein 1 EACH tablet 1 ea PO DAILY RF: 0 Valerian Root capsule 400 mg PO PRN PRN (Reason: Anxiety) RF: 0 lorazepam 0.5 MG tablet 0.5 mg PO DAILY PRN PRN (Reason: Anxiety) RF: 0 sertraline 50 MG tablet 50 mg PO DAILY RF: 0 cyclosporine 1 DROP dropperette 1 drp EACH EYE BID RF: 0 calcium carbonate-vitamin D3 1 TAB tablet 2 tab PO DAILY@0800 RF: 0 Claritin-D 12 Hour 5-120 mg Tablet Extended Release 12 Hr 1 tab PO Q12H PRN (Reason: ALLERGIES) RF: 0 astragalus root 250 mg Capsule 250 mg PO PRN PRN (Reason: IMMUNITY) RF: 0 cholecalciferol (vitamin D3) [Vitamin D3] 25 mcg (1,000 unit) Tablet 25 mcg PO DAILY RF: 0 Discontinued metronidazole 500 mg tablet See Rx Instructions PO .COMPLEX RF: 0 neomycin 500 mg tablet See Rx Instructions PO .COMPLEX RF: 0 Referrals / Follow Up: Dillan German MD [Primary Care Provider] - Disposition Disposition (needs filled in before D/C Order can be placed): Home, Self Care
--- NOTE | 2022-02-24 15:35 | CASEMGMT ---
LILLY HOPPER in to pt room to check with patient on any homegoing needs. Pt states she feels weak. She is not ordered therapy and states she does not feel like she needs it at the hospital or at home. She states once she gets home and starts eating food again, she feels she will regain her strength. She is aware if she changes her mind prior to dc to notify LILLY HOPPER. She denies further needs.
[2022-02-24 22:31] VITALS: BP 147/58; PULSE 71; RESP 16; TEMP 36.4; O2SAT 97
[2022-02-25] MEDS: Acetaminophen 500 MG Tablet 1000 MG PO ×2 (03:29→13:29)
[2022-02-25 03:30] VITALS: BP 138/60; PULSE 68; RESP 16; TEMP 36.6; O2SAT 96
[2022-02-25 05:17] LABS: Absolute Lymphocyte Count 0.99 X10^3/uL (0.83-4.51); Absolute Neutrophil Count 2.9 X10^3/uL (2.0-7.7); Basophil# 0.03 X10^3/uL; Basophil% 0.7 % (0-1); Eosinophils% 2.4 % (0-5); Hematocrit 22.4 % (37-47); Hemoglobin 7.2 g/dL (12.0-15.0); Lymphocyte # 0.99 X10^3/ul (0.83-4.51); Lymphocyte % 23.5 % (19-41); Mean Corp Hgb Conc 32.1 g/dL (32-36); Mean Corpuscular Hgb 27.1 pg (27.0-32.0); Mean Corpuscular Volume 84.2 fL (81-99); Mean Platelet Vol. 9.6 fl (6.2-12.0); Monocyte# 0.23 X10^3/uL; Monocyte% 5.5 % (0-10); NRBC Flagged by Analyzer 0 % (0-5); Neutrophil # 2.86 X10^3/uL (2.7-7.7); Neutrophil % 67.7 % (47-70); Platelet Count 178 K/mm3 (150-450); RBC Distribution Width CV 18.8 % (11.6-14.6); RBC Distribution Width SD 57.3 fl (35.1-43.9); Red Blood Count 2.66 M/mm3 (4.2-5.4); White Blood Count 4.2 K/mm3 (4.4-11.0)
[2022-02-25 05:44] LABS: Anion Gap 5 (5-15); BUN 10 mg/dL (7-18); BUN/Creat Ratio 23.6 RATIO (10-20); Chloride 105 mmol/L (98-107); Creatinine, Serum 0.42 mg/dL (0.55-1.02); EST Glomerular Filtration Rate 153 mL/min (>60); Est Glom Filt Rate - Afr Amer 185 mL/min (>60); Estimated Creatinine Clearance 41.05 ml/min; Glucose 119 mg/dL (74-106); Potassium 3.2 mmol/L (3.5-5.1); Sodium Level 139 mmol/L (136-145)
[2022-02-25 09:30] VITALS: BP 150/64; PULSE 88; RESP 16; TEMP 36.9; O2SAT 99
--- NOTE | 2022-02-25 09:40 | DS.PCM_ITS ---
Providers Date of Admission: 02/21/22 Primary Care Physician: Dr. Dillan German MD Reason For Visit: Pre-Surgical Testing Diagnosis Discharge Diagnosis (1) Acute blood loss anemia: Status: Resolved Code(s): D62 - Acute posthemorrhagic anemia (2) Colon cancer: Status: Acute Code(s): C18.9 - Malignant neoplasm of colon, unspecified Qualifiers: Colon location: ascending Qualified Code(s): C18.2 - Malignant neoplasm of ascending colon Medications at Discharge Home Medications Valerian Root 400 mg PO PRN PRN 10/17/14 ascorbic acid (vitamin C) 500 mg PO PRN PRN 10/17/14 hydrochlorothiazide 12.5 mg PO DAILY 10/17/14 cwmyocvn-hrp-WS-lycopen-lutein 1 ea PO DAILY 10/17/14 lorazepam 0.5 mg PO DAILY PRN PRN 10/31/17 calcium carbonate-vitamin D3 2 tab PO DAILY@0800 12/28/17 cyclosporine 1 drp EACH EYE BID 12/28/17 sertraline 50 mg PO DAILY 12/28/17 ferrous sulfate 142 mg (45 mg iron) tablet,extended release 142 mg PO DAILY 02/03/22 Claritin-D 12 Hour 1 tab PO Q12H PRN 02/09/22 astragalus root 250 mg PO PRN PRN 02/09/22 cholecalciferol (vitamin D3) [Vitamin D3] 25 mcg PO DAILY 02/09/22 pantoprazole 40 mg PO DAILY #30 tab 02/25/22 Hospital Course Operations colectomy Summary of Care Provided Hospital Course: Patient came in for elective right hemicolectomy due to a mass in the ascending colon. The first postoperative day had noted that her blood count decreased and she was taken back for surgery and she was found to have a large hematoma in the abdomen. The abdomen was irrigated and suctioned dry and the source of bleeding was found to be a mesenteric hematoma in the small bowel which was resected. The following day after this she was doing well and she was started on a diet. If she was tolerating diet and her hemoglobin remained stable for 2 days she was discharged home in stable condition. Weight / BMI Weight Weight: 125 lb 10.616 oz Body Mass Index (BMI) 20.9 ABG / Lab / Microbiology Data Result Diagrams: 02/25/22 04:12 02/25/22 04:12 Laboratory: Laboratory Results - last 24 hr 02/24/22 10:12: Hgb 8.4 L, Hct 26.4 L 02/25/22 04:12: WBC 4.2 L, RBC 2.66 L, Hgb 7.2 L, Hct 22.4 L, MCV 84.2, MCH 27.1, MCHC 32.1, RDW Std Deviation 57.3 H, RDW Coeff of Michelle 18.8 H, Plt Count 178, MPV 9.6, Immature Gran % (Auto) 0.200, Neut % (Auto) 67.7, Lymph % (Auto) 23.5, Oliver % (Auto) 5.5, Eos % (Auto) 2.4, Baso % (Auto) 0.7, Absolute Neuts (auto) 2.9, Absolute Lymphs (auto) 0.99, Nucleated RBC % 0 02/25/22 04:12: Sodium 139, Potassium 3.2 L, Chloride 105, Carbon Dioxide 29.0, Anion Gap 5, BUN 10, Creatinine 0.42 L, Estim Creat Clear Calc 41.05, Est GFR (MDRD) Af Amer 185, Est GFR (MDRD) Non-Af 153, BUN/Creatinine Ratio 23.6 H, Glucose 119 H, Calcium 8.0 L Microbiology: Microbiology 02/21/22 09:48 Interface Orders SARS-CoV-2 Antigen (Rapid) - Final D/C Instructions Discharge Diet: No restrictions Discharge Activity: May Drive (in 1 week) and May Shower Lifting Restrictions: 10 lbs for 4 weeks Call your doctor if your incision/area has: Continuous Slow Oozing, Sudden Increased Bleeding, Increased Pain/ Swelling, Increased Redness, Foul Smelling Discharge and Swelling at the incision site Call your doctor if you observe: Fever of 101 or Higher and Inability to have a bowel movement Remove Dressing in: 1 day (remove steri strips in 7-10 days) Cleanse incision/area with: Soap & Water Please Follow Up With: Juan A Tinajero MD When: Please call to schedule 2 week follow up appointment. [phone] Meaningful Use Info Meaningful Use Diagnoses (Choose all that apply): None applicable Discharge Plan Admission Admit Date/Time: 02/21/22 13:34 Primary Reason for Your Visit: Colon cancer Attending Provider: Juan A Tinajero Primary Care Provider: Dillan German Instructions Additional Instructions / Restrictions: Please continue on transitional diet provided until follow up in the office with Dr. Tinajero. You may take Tylenol for pain as needed. Discharge Orders/Prescriptions Prescriptions: New pantoprazole 40 mg Tablet,Delayed Release (Dr/Ec) 40 mg PO DAILY Qty: 30 RF: 0 Continued Slow Fe 142 mg (45 mg iron) tablet extended release 142 mg PO DAILY RF: 0 ascorbic acid (vitamin C) 500 MG tablet 500 mg PO PRN PRN (Reason: Feeling sick) RF: 0 hydrochlorothiazide 25 MG tablet 12.5 mg PO DAILY RF: 0 vxjmentb-yzc-CM-lycopen-lutein 1 EACH tablet 1 ea PO DAILY RF: 0 Valerian Root capsule 400 mg PO PRN PRN (Reason: Anxiety) RF: 0 lorazepam 0.5 MG tablet 0.5 mg PO DAILY PRN PRN (Reason: Anxiety) RF: 0 sertraline 50 MG tablet 50 mg PO DAILY RF: 0 cyclosporine 1 DROP dropperette 1 drp EACH EYE BID RF: 0 calcium carbonate-vitamin D3 1 TAB tablet 2 tab PO DAILY@0800 RF: 0 Claritin-D 12 Hour 5-120 mg Tablet Extended Release 12 Hr 1 tab PO Q12H PRN (Reason: ALLERGIES) RF: 0 astragalus root 250 mg Capsule 250 mg PO PRN PRN (Reason: IMMUNITY) RF: 0 cholecalciferol (vitamin D3) [Vitamin D3] 25 mcg (1,000 unit) Tablet 25 mcg PO DAILY RF: 0 Discontinued metronidazole 500 mg tablet See Rx Instructions PO .COMPLEX RF: 0 neomycin 500 mg tablet See Rx Instructions PO .COMPLEX RF: 0 Referrals / Follow Up: Dillan German MD [Primary Care Provider] - Disposition Disposition (needs filled in before D/C Order can be placed): Home, Self Care
[2022-02-25] MEDS: Sertraline 50 MG Tablet PO (10:04)
[2022-02-25] MEDS: hydroCHLOROthiazide 12.5mg 12.5 MG PO (10:04)
[2022-02-25] MEDS: Pantoprazole Sodium 40 MG Tablet PO (10:11)
[2022-02-25] MEDS: Loratadine 10 MG Tablet PO (10:11)
--- NOTE | 2022-02-25 10:34 | CASEMGMT ---
LILLY CM back into pt room, pt sitting up in chair and denies any homegoing needs.
[2022-02-25 13:36] VITALS: BP 151/72; PULSE 95; RESP 18; TEMP 36.9; O2SAT 100
== END 2022-02-25 14:00 | disposition home or self-care (01) | DRG 330 ==
PROVIDERS: Anesthesiology; Physician Assistant; Admitting Provider Surgery; PCP Family Medicine; Referring Provider Surgery; Visit Provider Surgery
PROC: 0DTF0ZZ Resection of Right Large Intestine, Open Approach (ICD-10-PCS; CPT 44205; principal; 2022-02-21 11:15)
PROC: 0DB80ZZ Excision of Small Intestine, Open Approach (ICD-10-PCS; CPT 44202; principal; 2022-02-22 08:55)
DX: C18.2 Malignant neoplasm of ascending colon (principal); D62 Acute posthemorrhagic anemia; K91.870 Postprocedural hematoma of a digestive system organ or structure following a digestive system procedure; E78.5 Hyperlipidemia, unspecified; I10 Essential (primary) hypertension; Z87.891 Personal history of nicotine dependence; Y84.9 Medical procedure, unspecified as the cause of abnormal reaction of the patient, or of later complication, without mention of misadventure at the time of the procedure; Y92.234 Operating room of hospital as the place of occurrence of the external cause; Z85.3 Personal history of malignant neoplasm of breast
CPT/HCPCS: 36415; 74177; 80048; 82378; 82962; 83735; 85014; 85018; 85025; 85027; 85610; 85730; 86850; 86900; 86901; 86920; 86922; 87426; 88304; 88305; 88307; 88309; 93005; 99251; J7040; J7050; J7120; P9016; Q9967; A4216; C1760; G0463; J2405; J3475

== ENCOUNTER → 2022-05-24 | Outpatient (CLI) | payer MEDICARE, SELFPAY ==
--- NOTE | 2022-05-24 13:01 | US_ITS ---
INDICATION: right thyroid nodule, TRad please EXAMINATION: US Thyroid (eg thyroid, parathyroid, parotid) TECHNIQUE: Chaudhry scale and color doppler imaging was performed of the thyroid gland. COMPARISON: None. FINDINGS: RIGHT THYROID LOBE: Measures 5.1 x 1.6 x 1.7 cm. Homogeneous echotexture with normal vascularity. [Multiple nodules are present, with the 4 largest described below: -1.1 cm mostly solid well-circumscribed hypoechoic wider than tall nodule in the upper pole -2.1 cm solid and cystic hypoechoic well-circumscribed wider than tall nodule in the lower pole -1.3 cm mostly solid mixed isoechoic and hypoechoic wider than tall well-circumscribed nodule in the lower pole -0.9 cm mostly solid isoechoic heterogeneous than tall well-circumscribed nodule in the lower pole. LEFT THYROID LOBE: Measures 4.3 x 1.5 x 1.2 cm. Homogeneous echotexture with normal vascularity multiple nodules are present, without for largest described below: -Benign 7 mm cystic nodule in the upper pole -7 mm solid heterogeneous mixed isoechoic and hypoechoic wider than tall ill-defined nodule in the upper pole. -Benign 1.5 cm spongiform nodule in the lower pole -Benign 6 mm cystic nodule in the lower pole. ISTHMUS: Measures 2 mm in thickness. No thyroid nodules are present. US/Thyroid IMPRESSION: Multinodular goiter with notable nodules as below: -1.1 cm hypoechoic TI-RADS 4 nodule in the right upper pole is moderately suspicious. Recommend 1 year follow-up. -2.1 cm hypoechoic solid and cystic TI-RADS 3 nodule in the right lower pole is mildly suspicious. Recommend 1 year follow-up. -1.3 cm mostly solid mostly hypoechoic TI-RADS 5 nodule with punctate echogenic foci in the right lower pole is highly suspicious. Recommend FNA. -0.9 cm mostly solid heterogeneous mostly hypoechoic TI-RADS 5 nodule with punctate echogenic foci in the right lower pole is highly suspicious. Recommend FNA. -7 mm solid heterogeneous mostly hypoechoic TI-RADS 4 nodule in the left upper pole is moderately suspicious. Recommend 1 year follow-up. Electronically Signed: Carmine Covarrubias MD at 19:00 EDT ,
== END | disposition home or self-care (01) ==
PROVIDERS: PCP Family Medicine; Visit Provider Internal Medicine Endocrinology, Diabetes & Metabolism
DX: E04.1 Nontoxic single thyroid nodule (principal)
CPT/HCPCS: 76536

== ENCOUNTER → 2022-06-07 | Outpatient (CLI) | payer MEDICARE, SELFPAY ==
--- NOTE | 2022-06-06 | ASPS_PTH ---
PATIENT: UMA SANTILLAN LOC: [facility] U#:[id number] AGE/SX: 82/F ROOM: RE06/07/[address]: Dr. Hong Delarosa MD : 1940 BED: DIS: 06/07/2022 SPEC #: [id number] RECD: 06/07/22 10:49 STATUS: YOHAN REEran #: [id number] CLAUDY: 06/06/22 00:[address]: Hong Delarosa DEPT: CYTOLOGY RECD BY: Gurjit Mak ENTERED: 06/07/22 10:50 SP TYPE: ASPIRATION OTHR DR: Dr. Dillan German MD Tissues: A - Thyroid gland, NOS B - Thyroid gland, NOS Procedures: Special Stain Group II Cytology Other Comments: @ Specimen number changed from [id number] to [id number] @ on 06/07/22 at 1415 by RGOOD. HEADER OPERATION: Right thyroid fine needle aspiration xx2 PRE-OP DIAGNOSIS: Multiple thyroid nodules TISSUE SUBMITTED: A - Right lower anterior thyroid x6 slides, B - Right lower posterior thyroid x6 slides DIAGNOSIS CYTOLOGY A. Fine needle aspiration, right lower anterior thyroid nodule (smears): Adequate for evaluation. Benign, consistent with benign follicular nodule ([place] Category II). B. Fine needle aspiration, right lower posterior thyroid nodule (smears): Negative for malignant cells. See comment. AM:stephanie 06/08/2022 COMMENT B. Rare benign follicular cells are present. The paucity of follicular cells precludes further evaluation. Clinical correlation is necessary. CYTOLOGY STUDY Slides are reviewed. CYTOLOGY GROSS A - Received are six smears labeled with the patient's name and designated per the requisition as right lower anterior thyroid. Submitted for staining. B - Received are six smears labeled with the patient's name and designated per the requisition as right lower posterior thyroid. Submitted for staining. / stephanie 06/07/2022 TC:5 CPT: 74533 x2
== END | disposition home or self-care (01) ==
LOC: LABSPEC 09:39
PROVIDERS: PCP Family Medicine; Referring Provider Surgery; Visit Provider Surgery
DX: E04.2 Nontoxic multinodular goiter (principal)
CPT/HCPCS: 88161; 88313

== ENCOUNTER → 2022-06-28 | Outpatient (CLI) | payer MEDICARE, SELFPAY ==
--- NOTE | 2022-06-28 09:39 | STEWCON_ITS ---
Reason For Study: Chest Pain Stress Results Protocol: Rajan Protocol WITH DEFINITY Maximum Predicted HR: 140 bpm Target HR: 119 bpm % Maximum Predicted HR: 101 % DurationHeart Rate Stage (mm:ss) (bpm) BP Comment Baseline 60 130/62No Chest Pain; 3 ML Diluted Definity Rajan Protocol Stage I 3:00 112 142/64No Chest Pain Rajan Protocol Stage II 3:00 125 150/64No Chest Pain Rajan Protocol Stage III 2:07 141 / No Chest Pain; Mod Dyspnea; Tired Recovery 73 130/70No Chest Pain Stress Duration: 8:07 mm:ss Maximum Stress HR: 141 bpm METS: 10 Baseline Echocardiogram Findings Stress Echo Wall motion Data Resting WM Intermediate WM Stress WM ECHO/Stress Test Echo W/Contrast Interpretation Summary Exercise stress echo. 82-year-old lady with a history of chest pain. Stress protocol: Resting EKG demonstrates normal sinus rhythm with a rate of 60 bpm. Resting rig ht bundle branch block is noted. Resting blood pressure is 130/62 mmHg. The patient exercised ac cording to regular Rajan protocol for total duration of 8 minutes. Patient completed 2 minutes int o stage III of the Rajan protocol. The maximum heart rate attained was 144 bpm which was 102% of m ax impacted heart rate the maximum workload was 10.1 metabolic equivalents. At rest there were no ST or T wave changes noted to suggest ischemia and at peak exercise upsloping ST changes were noted with did not meet the criteria for ischemia. No clinical angina was noted. The peak blood pressure wa s 170/68 mmHg. The test was terminated due to the target heart rate being achieved and some shortn ess of breath. Stress echocardiogram. The resting echocardiogram was performed with and without Definity enhancement. The resting ejection fraction was noted to be 55%. At peak exercise there was thickening of all wall s except for the lateral wall and the inferolateral wall at peak exercise suggesting reduced per fusion at peak exercise. In addition the mid anterior wall on the stress images also demonstra yogesh reduced contractility suggesting mild ischemia in this territory. Conclusion: Abnormal exercise stress echo with evidence of mid anterior and mid lateral isc hemia noted at a high workload. Ordering Physician: Deon Mix Referring Physician: Deon Mix Performed By: Louis Ruiz [facility]
== END | disposition home or self-care (01) ==
LOC: CVS 09:35
PROVIDERS: PCP Family Medicine; Referring Provider Internal Medicine Cardiovascular Disease; Visit Provider Internal Medicine Cardiovascular Disease
DX: R07.9 Chest pain, unspecified (principal); R93.1 Abnormal findings on diagnostic imaging of heart and coronary circulation; I45.10 Unspecified right bundle-branch block
CPT/HCPCS: 93017; 93350; Q9957; A4216; C8928

== ENCOUNTER → 2022-07-07 | Outpatient (CLI) | payer MEDICARE, SELFPAY ==
[2022-07-07 14:23] LABS: Absolute Lymphocyte Count 1.22 X10^3/uL (0.83-4.51); Absolute Neutrophil Count 3.1 X10^3/uL (2.0-7.7); Basophil# 0.04 X10^3/uL; Basophil% 0.9 % (0-1); Eosinophil# 0.11 X10^3/uL; Eosinophils% 2.3 % (0-5); Hematocrit 42.9 % (37-47); Lymphocyte # 1.22 X10^3/ul (0.83-4.51); Mean Corp Hgb Conc 32.6 g/dL (32-36); Mean Corpuscular Hgb 29.5 pg (27.0-32.0); Mean Corpuscular Volume 90.3 fL (81-99); Mean Platelet Vol. 9.3 fl (6.2-12.0); Monocyte# 0.26 X10^3/uL; Monocyte% 5.5 % (0-10); NRBC Flagged by Analyzer 0 % (0-5); Neutrophil # 3.05 X10^3/uL (2.7-7.7); Neutrophil % 64.9 % (47-70); Platelet Count 191 K/mm3 (150-450); RBC Distribution Width CV 14.3 % (11.6-14.6); RBC Distribution Width SD 47.3 fl (35.1-43.9); Red Blood Count 4.75 M/mm3 (4.2-5.4); White Blood Count 4.7 K/mm3 (4.4-11.0)
[2022-07-07 14:44] LABS: Anion Gap 4 (5-15); BUN 14 mg/dL (7-18); Calcium,Total 9.5 mg/dL (8.5-10.1); Chloride 103 mmol/L (98-107); Creatinine, Serum 0.74 mg/dL (0.55-1.02); EST Glomerular Filtration Rate 81 mL/min (>60); Est Glom Filt Rate - Afr Amer 97 mL/min (>60); Glucose 123 mg/dL (74-106); Potassium 3.8 mmol/L (3.5-5.1); Sodium Level 139 mmol/L (136-145)
== END | disposition home or self-care (01) ==
LOC: PAVLAB 14:10
PROVIDERS: PCP Family Medicine; Referring Provider Internal Medicine Cardiovascular Disease; Visit Provider Internal Medicine Cardiovascular Disease
DX: R94.39 Abnormal result of other cardiovascular function study (principal); R07.9 Chest pain, unspecified; I45.10 Unspecified right bundle-branch block; I10 Essential (primary) hypertension; E78.5 Hyperlipidemia, unspecified; R55 Syncope and collapse; Z85.3 Personal history of malignant neoplasm of breast
CPT/HCPCS: 36415; 80048; 85025

== ENCOUNTER 2022-07-27 06:47 | Day surgery (SDC) | payer MEDICARE, SELFPAY ==
[2022-07-15 09:43] VITALS: BMI 21.4
--- NOTE | 2022-07-15 16:27 | PCM.HP.BLA ---
History and Physical Date of Admission: 07/18/22 History of Present Illness Details: This is a 82-year-old lady who presents to the cardiac catheterization lab for a cardiac catheterization. 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 She had presented in 2014 with chest discomfort had a non-ST elevation myocardial infarction and underwent a cardiac catheterization which demonstrated normal coronary anatomy.? She was recently noted to have significant anemia and was evaluated with the above diagnosis.? She has not had any dizziness or diaphoresis near syncope or syncope.? She says that this chest discomfort usually occurs in the region of her breast.? She had previously had an mastectomy with reconstruction.? This discomfort she has is not related to exertion and there are no precipitating or relieving factors.? It does not radiate. Intake Vital Signs: See EMR Intake Visit Reasons:?[facility] Allergies ciprofloxacin [From Cipro] Allergy (Mild, Verified 05/25/22 12:37) hivesmesalamine Allergy (Mild, Verified 05/25/22 12:37) Hivesalendronate sodium [From Fosamax] Allergy (Unknown, Verified 05/25/22 12:37) Diarrheapovidone-iodine [From Betagen (povidone-iodine)] Allergy (Verified 05/25/22 12:37) Rashlatex Adverse Reaction (Verified 05/25/22 12:37) HivesPNEUMONIA BOOSTER Allergy (Uncoded 05/25/22 12:37) Other Medications See EMR Ejection fraction %: 65 to 70 PFSH Medical History? Abnormal ECG Abnormal serum enzyme level Alcohol use Anemia Anxiety and depression Arthritis Back pain Blackout Cancer Cancer Chronic cholecystitis Colitis Colon cancer DDD (degenerative disc disease), cervical Essential hypertension Former smoker Hemorrhoids History of breast cancer History of colitis History of irregular heartbeat History of left breast cancer HLD (hyperlipidemia) Hypertension Injury of back Injury of head and neck Normal stress echocardiogram Osteoporosis Pancreatitis Post-menopausal Right bundle branch block (RBBB) Screen for colon cancer Thyroid nodule Vasovagal syncope Wears dentures Wears glasses Wears hearing aid Surgical History? History of cardiac catheterization (10/23/14) History of mastectomy History of right hemicolectomy (02/21/22) Hx of appendectomy Hx of bilateral cataract extraction Hx of colonoscopy Hx of left mastectomy S/P colonoscopy S/P laparoscopic cholecystectomy (~01/03/18) S/P lumpectomy of breast Family History? Mother Hypertension CVA (cerebral vascular accident)Sister HypertensionFather CVA (cerebral vascular accident)Other Alcohol abuse Anxiety Depression H/O ulcer disease Psychiatric care Social History? household members:? spouse Smoking Status:? Former smoker how long ago did patient quit smoking:? started in high school, quit in 1977; smoked a pack a month, sometimes more alcohol intake:? current alcohol intake frequency: a few times a month Alcohol type: wine substance use type:? does not use diet:? other ROS Const Const: Negative for fatigue, weakness, headache(s), frequent falls, difficulty sleeping or excessive sweating Eyes Eyes: Negative for loss of peripheral vision, transient loss of vision, blurry vision, double vision or tunnel vision ENT ENT: Negative for headache(s), dizziness, Nosebleed/epistaxis or balance problems Cardio Chest Pain: Yes (when laying on left side, left breast aches) Palpitations: No Edema: None Muscle aches with walking: None Resp Respiratory: Negative for SOB with activity, SOB at rest, SOB orthopnea\SOB lying down, Cough or paroxysmal nocturnal dyspnea GI GI: Negative nausea, vomiting, heartburn or black,tarry stools : Negative for hematuria Musc Musc: Negative for muscle aches/ myalgia, muscle weakness, joint pain or balance problems Skin Skin: Negative non-healing lesions, rash or unusual bruising Neuro Neuro: Negative for dizziness, lightheadedness, near syncope, syncope, orthostatic symptoms, frequent falls, headache(s), weakness, confusion, memory loss, blurry vision, double vision, vertigo or lack of coordination Jerald Hematologic/Lymphatic: Negative for easy bleeding or easy bruising Endo Endo: Negative for fatigue, excessive sweating, flushing or increased thirst/drinking Psych Psych: Negative for anxiety or depression Allergy Allergy/Immunology: Negative for hives and Negative for rash Cardiology Exam Const Appearance: cooperative, healthy appearing, no acute distress, well developed and well groomed Nutritional Appearance: average body habitus and well nourished Orientation: alert, awake and oriented x3 Head Head: normal to inspection, normocephalic and atraumatic Ears: hearing grossly normal bilaterally and external ears normal Nose: external nose normal, nares normal, nasal mucous membranes and turbinates normal, septum normal and no nasal discharge Face and Sinus: face symmetric Mouth: oral mucosae normal, tongue normal, oropharynx normal and moist mucous membranes Teeth and gingiva: dentition normal Throat: posterior oropharynx normal, tonsils normal and uvula midline Eyes General: appearance normal, both eyes and all related structures Eyelids: eyelids normal Conjunctivae: conjunctivae normal Pupils: PERRL, normal by confrontation and accommodation normal EOM: EOM intact bilaterally Neck Neck: normal visual inspection, trachea midline and no JVD JVD: +5 Carotids: normal carotid upstroke and bounding pulses Chest Chest inspection: normal inspection of the chest, symmetric chest movement and normal respiratory effort Auscultation: Bilateral: Clear to Auscultation Cardio Palpation: normal PMI Rate: regular rate Rhythm: regular rhythm Heart sounds: S1 normal, S2 normal and normal, physiologic split S2; Negative rub, gallop or murmur GI GI: normal to inspection, soft, no hepatosplenomegaly and bowel sounds present Neuro General: patient alert, patient awake, patient oriented x3, gait normal, moves all extremities and no focal sensory deficit Skin Skin: no rashes or lesions noted Extremities Pulses: Normal: Right Femoral Pulse, Left Femoral Pulse, Right Dorsalis Pedis Pulse, Left Dorsalis Pedis Pulse, Right Posterior Tibial Pulse, Left Posterior Tibial Pulse, Right Radial Pulse and Left Radial Pulse Lower Extremity Edema: None: Bilateral Musculoskel Musculoskeletal: No joint tenderness Psych Psychological: normal affect Supplemental Info Supplemental Information Stress Echocardiogram 06/2022: Interpretation Summary Exercise stress echo. 82-year-old lady with a history of chest pain. ? Stress protocol: Resting EKG demonstrates normal sinus rhythm with a rate of 60 bpm. Resting right bundle branch block is noted. Resting blood pressure is 130/62 mmHg. The patient exercised according to regular Rajan protocol for total duration of 8 minutes. Patient completed 2 minutes into stage III of the Rajan protocol. The maximum heart rate attained was 144 bpm which was 102% of max impacted heart rate the maximum workload was 10.1 metabolic equivalents. At rest there were no ST or T wave changes noted to suggest ischemia and at peak exercise upsloping ST changes were noted with did not meet the criteria for ischemia. No clinical angina was noted. The peak blood pressure was 170/68 mmHg. The test was terminated due to the target heart rate being achieved and some shortness of breath. ? Stress echocardiogram. The resting echocardiogram was performed with and without Definity enhancement. The resting ejection fraction was noted to be 55%. At peak exercise there was thickening of all zepeda except for the lateral wall and the inferolateral wall at peak exercise suggesting reduced perfusion at peak exercise. In addition the mid anterior wall on the stress images also demonstrated reduced contractility suggesting mild ischemia in this territory. ? Conclusion: Abnormal exercise stress echo with evidence of mid anterior and mid lateral ischemia noted at a high workload. ECHOCARDIOGRAM? 10/18/2014 Interpretation Summary Normal LV/RV function Mild LVH Stage 1 diastolic dysfunction No significant valve abnormality Laboratory Tests ? 05/19/21 03/08/22 ? 14:54 11:09 Hgb ? ?8.7 L Hct ? ?27.8 L Triglycerides ?173 ? Cholesterol ?230 H ? LDL Cholesterol ?139 H ? HDL Cholesterol ?56 ? Labs: ?? ? No Data to Display Diagnostics: ?? ? Electrocardiogram ? Pulmonary: ?? ? No Data to Display Assessment and Plan Assessment and Plan (1) Chest pain: ?Status:?Acute ?Plan: Patients stress echocardiogram in 06/2022 was abnormal. She will proceed with a cardiac catheterization. (2) Essential hypertension: ?Status:?Chronic ?Plan: Her blood pressure appears to be under good control at this particular time I would not make any major changes.
--- NOTE | 2022-07-26 08:23 | PCM.HP.BLA ---
History and Physical Date of Admission: 07/27/22 Krissy Ahmadi is an 82 year old female that presents today for a cardiac cath for an abnormal stress echo. She recently established with us for evaluation of chest pain.? 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 She had presented in 2015 with chest discomfort had a non-ST elevation myocardial infarction and underwent a cardiac catheterization which demonstrated normal coronary anatomy.? She was recently noted to have significant anemia and was evaluated with the above diagnosis.? She has not had any dizziness or diaphoresis near syncope or syncope.? She notes that the chest discomfort usually occurs in the region of her breast.? She had previously had an mastectomy with reconstruction.? The chest discomfort has not related to exertion and there are no precipitating or relieving factors.? It does not radiate. Her stress echo demonstrated evidence of mid anterior and mid lateral ischemia at a high workload. PFSH Medical History? Abnormal ECG Abnormal serum enzyme level Alcohol use Anemia Anxiety and depression Arthritis Back pain Blackout Cancer Cancer Chronic cholecystitis Colitis Colon cancer DDD (degenerative disc disease), cervical Essential hypertension Former smoker Hemorrhoids History of breast cancer History of colitis History of irregular heartbeat History of left breast cancer HLD (hyperlipidemia) Hypertension Injury of back Injury of head and neck Normal stress echocardiogram Osteoporosis Pancreatitis Post-menopausal Right bundle branch block (RBBB) Screen for colon cancer Thyroid nodule Vasovagal syncope Wears dentures Wears glasses Wears hearing aid Surgical History? History of cardiac catheterization (10/23/14) History of mastectomy History of right hemicolectomy (02/21/22) Hx of appendectomy Hx of bilateral cataract extraction Hx of colonoscopy Hx of left mastectomy S/P colonoscopy S/P laparoscopic cholecystectomy (~01/03/18) S/P lumpectomy of breast Family History? Mother Hypertension CVA (cerebral vascular accident)Sister HypertensionFather CVA (cerebral vascular accident)Other Alcohol abuse Anxiety Depression H/O ulcer disease Psychiatric care Social History? household members:? spouse Smoking Status:? Former smoker how long ago did patient quit smoking:? started in high school, quit in 1977; smoked a pack a month, sometimes more alcohol intake:? current alcohol intake frequency: a few times a month Alcohol type: wine substance use type:? does not use diet:? other ROS Const Const: Negative for fatigue, weakness, headache(s), frequent falls, difficulty sleeping or excessive sweating Eyes Eyes: Negative for loss of peripheral vision, transient loss of vision, blurry vision, double vision or tunnel vision ENT ENT: Negative for headache(s), dizziness, Nosebleed/epistaxis or balance problems Cardio Chest Pain: Yes (when laying on left side, left breast aches) Palpitations: No Edema: None Muscle aches with walking: None Resp Respiratory: Negative for SOB with activity, SOB at rest, SOB orthopnea\SOB lying down, Cough or paroxysmal nocturnal dyspnea GI GI: Negative nausea, vomiting, heartburn or black,tarry stools : Negative for hematuria Musc Musc: Negative for muscle aches/ myalgia, muscle weakness, joint pain or balance problems Skin Skin: Negative non-healing lesions, rash or unusual bruising Neuro Neuro: Negative for dizziness, lightheadedness, near syncope, syncope, orthostatic symptoms, frequent falls, headache(s), weakness, confusion, memory loss, blurry vision, double vision, vertigo or lack of coordination Jerald Hematologic/Lymphatic: Negative for easy bleeding or easy bruising Endo Endo: Negative for fatigue, excessive sweating, flushing or increased thirst/drinking Psych Psych: Negative for anxiety or depression Allergy Allergy/Immunology: Negative for hives and Negative for rash Cardiology Exam Const Appearance: cooperative, healthy appearing, no acute distress, well developed and well groomed Nutritional Appearance: average body habitus and well nourished Orientation: alert, awake and oriented x3 Head Head: normal to inspection, normocephalic and atraumatic Ears: hearing grossly normal bilaterally and external ears normal Nose: external nose normal, nares normal, nasal mucous membranes and turbinates normal, septum normal and no nasal discharge Face and Sinus: face symmetric Mouth: oral mucosae normal, tongue normal, oropharynx normal and moist mucous membranes Teeth and gingiva: dentition normal Throat: posterior oropharynx normal, tonsils normal and uvula midline Eyes General: appearance normal, both eyes and all related structures Eyelids: eyelids normal Conjunctivae: conjunctivae normal Pupils: PERRL, normal by confrontation and accommodation normal EOM: EOM intact bilaterally Neck Neck: normal visual inspection, trachea midline and no JVD JVD: +5 Carotids: normal carotid upstroke and bounding pulses Chest Chest inspection: normal inspection of the chest, symmetric chest movement and normal respiratory effort Auscultation: Bilateral: Clear to Auscultation Cardio Palpation: normal PMI Rate: regular rate Rhythm: regular rhythm Heart sounds: S1 normal, S2 normal and normal, physiologic split S2; Negative rub, gallop or murmur GI GI: normal to inspection, soft, no hepatosplenomegaly and bowel sounds present Neuro General: patient alert, patient awake, patient oriented x3, gait normal, moves all extremities and no focal sensory deficit Skin Skin: no rashes or lesions noted Extremities Pulses: Normal: Right Femoral Pulse, Left Femoral Pulse, Right Dorsalis Pedis Pulse, Left Dorsalis Pedis Pulse, Right Posterior Tibial Pulse, Left Posterior Tibial Pulse, Right Radial Pulse and Left Radial Pulse Lower Extremity Edema: None: Bilateral Musculoskel Musculoskeletal: No joint tenderness Psych Psychological: normal affect Assessment & Plan Assessment/Plan (1) Chest pain: (2) Abnormal stress echo: (3) Essential hypertension: (4) HLD (hyperlipidemia): (5) Right bundle branch block (RBBB): PLAN: Plan Pt will undergo a diagnostic heart cath. Plan of care will be based on findings.
--- NOTE | 2022-07-27 08:59 | CL.D_ITS ---
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 Moderate calcification present in the mid left anterior descending artery. RECOMMENDATIONS Would recommend medical therapy with beta-blas calcium channel blas and statin. If patient fails this therapy then would consider FFR and/or shockwave lithotripsy to the mid left anterior descending artery. DESCRIPTION OF PROCEDURE The patient arrived to the procedure lab. The risks and benefits of the procedure as well as a full description of our services here and current unavailability of surgical backup were fully explained to the patient and/or their significant other prior to the catheterization. The Timeout was completed, verifying the correct patient and procedure. The patient's procedural site was prepped and draped in the usual fashion. Local anesthetic was given subcutaneously to right radial region with Lidocaine 2%. Using a modified Seldinger technique, arterial access was obtained via the right radial artery, a 6Fr sheath was inserted. Left Coronary Artery selective angiography was performed in multiple views using a 5 Fr. 4.0 [place] catheter. Right Coronary Artery selective angiography was then performed in multiple views using a 5 Fr. 4.0 [place] catheter.The arterial sheath was pulled and a TR Band was applied for hemostasis. 10cc of air CORONARY ANGIOGRAPHY DOMINANCE: Right Dominant LEFT HEART ASSESSMENT Left Ventricular Ejection Fraction: by LV Gram 65 % Normal LV wall motion Normal Left Ventricular systolic function LEFT MAIN: Mild calcification, No significant disease noted LEFT ANTERIOR DESCENDING ARTERY: The proximal left anterior descending artery has minimal disease with a mid exhibiting some calcification at the bifurcation of the diagonal branch and moderate disease noted. The distal vessel is diffusely mildly diseased. MID LAD: Moderate calcification, Moderate luminal irregularities up to 50% DIAGONAL 1: Ostial - 60 % Stenosis CIRCUMFLEX ARTERY: Mild luminal irregularities RIGHT CORONARY ARTERY: Mild luminal irregularities COMPLICATIONS No Complications PROCEDURE MEDICATIONS Fentanyl 50 mcg IV Versed 1 mg IV Oxygen: 2 L/min via nasal cannula Heparin given IA 07/27/2022 08:34:15 Verapamil 2.5mg, Ntg 100mcgs, 3000 units of Heparin given IA 07/27/2022 08:34:15 SUMMARY OF HEMODYNAMIC DATA Time AIR REST ECG 07:08:28 ECG 08:11:40 Art 134/49 (78) 08:32:45 AO 119/57 (81) SA 08:35:56 LV 106/6, 14 08:40:32 LV 103/7, 14 08:40:40 LV 93/15, 18 08:41:42 LVp 104/16, 24 08:42:09 AOp 113/47 (73) 08:44:13 AO 114/47 (72) 08:44:35 ECG 08:58:00 AIR REST 08:59:00 Signed By Deon Mix MD On 07/27/2022 08:59:21 Deon Mix MD
== END 2022-07-27 10:20 | disposition home or self-care (01) ==
LOC: CLSP 06:49
PROVIDERS: PCP Family Medicine; Referring Provider Internal Medicine Cardiovascular Disease; Visit Provider Internal Medicine Cardiovascular Disease
DX: R07.9 Chest pain, unspecified (principal); Z97.3 Presence of spectacles and contact lenses; F41.9 Anxiety disorder, unspecified; I25.2 Old myocardial infarction; M50.30 Other cervical disc degeneration, unspecified cervical region; I45.10 Unspecified right bundle-branch block; Z97.2 Presence of dental prosthetic device (complete) (partial); D64.9 Anemia, unspecified; Z87.891 Personal history of nicotine dependence; Z78.0 Asymptomatic menopausal state; E04.1 Nontoxic single thyroid nodule; I10 Essential (primary) hypertension; M81.0 Age-related osteoporosis without current pathological fracture; E78.5 Hyperlipidemia, unspecified; Z82.3 Family history of stroke; R74.8 Abnormal levels of other serum enzymes
CPT/HCPCS: 93458; 99152; 99153; J7030; C1769; C1894; Q9967

== ENCOUNTER 2023-03-28 09:28 | Day surgery (SDC) | payer MEDICARE, SELFPAY ==
--- NOTE | 2023-03-28 09:40 | HP.PCM_ITS ---
History and Physical Date of Admission: 03/28/23 Visit Reasons:?RECALL LETTER- 1 YEAR SCOPE Chief Complaint: Colon cancer-recall 1 year Inventory Control/Shipping Receiving Required: No Is patient in pain?: No Allergies ciprofloxacin [From Cipro] Allergy (Mild, Verified 02/27/23 09:05) hivesmesalamine Allergy (Mild, Verified 02/27/23 09:05) Hivesalendronate sodium [From Fosamax] Allergy (Unknown, Verified 02/27/23 09:05) Diarrheapovidone-iodine [From Betagen (povidone-iodine)] Allergy (Verified 02/27/23 09:05) Rashlatex Adverse Reaction (Verified 02/27/23 09:05) Hivespneumococcal vaccine Adverse Reaction (Verified 02/27/23 09:05) Other Medications sertraline 50 mg tablet 50 mg PO DAILY DEPRESSION 12/28/17 [History Confirmed 02/27/23] calcium citrate 250 mg calcium-vitamin D3 5 mcg (200 unit) tablet (Citracal Regular) 1 tab PO DAILY 03/08/22 [History Confirmed 02/27/23] cyclosporine 0.05 % eye drops in a dropperette 1 drp EACH EYE BID 03/08/22 [History Confirmed 02/27/23] tmgligni-aog-ifpgj acid 0.4 mg-lycopene 300 mcg-lutein 250 mcg tablet (Centrum Silver) 1 tab PO DAILY 03/08/22 [History Confirmed 02/27/23] sodium chloride 2 % eye drops (Tizel 128) 1 drp ophthalmic (eye) MOWEFR 03/08/22 [History Confirmed 02/27/23] hydrochlorothiazide 12.5 mg capsule 12.5 mg PO DAILY 05/20/22 [History Confirmed 02/27/23] amlodipine 2.5 mg tablet (Norvasc) 2.5 mg PO DAILY #90 tabs 07/27/22 [Rx Confirmed 02/27/23] atorvastatin 40 mg tablet 40 mg PO QHS #90 tabs 07/27/22 [Rx Confirmed 02/27/23] metoprolol succinate 25 mg tablet,extended release 24 hr 25 mg PO DAILY #90 tabs 07/27/22 [Rx Confirmed 02/27/23] Devil's claw PO PRN 12/01/22 [History Confirmed 02/27/23] diphenoxylate-atropine 2.5 mg-0.025 mg tablet (Lomotil) 1 tab PO 4X/DAY PRN diarrhea 12/01/22 [History Confirmed 12/19/22] loratadine 10 mg tablet 10 mg PO DAILY PRN allergy symptoms 12/01/22 [History Confirmed 02/27/23] PFSH Medical History? Abnormal ECG Abnormal serum enzyme level Alcohol use Anemia Anxiety and depression Arthritis Back pain Blackout Cancer Cancer Chronic cholecystitis Colitis Colon cancer DDD (degenerative disc disease), cervical Essential hypertension Former smoker Genetic predisposition to cancer Hemorrhoids History of breast cancer History of colitis History of irregular heartbeat History of left breast cancer HLD (hyperlipidemia) Hypertension Injury of back Injury of head and neck Normal stress echocardiogram Osteoporosis Pancreatitis Post-menopausal Right bundle branch block (RBBB) Screen for colon cancer Thyroid nodule Vasovagal syncope Wears dentures Wears glasses Wears hearing aid Surgical History? History of cardiac catheterization (10/23/14) History of left heart catheterization (LHC) (~07/27/22) History of mastectomy History of right hemicolectomy (02/21/22) Hx of appendectomy Hx of bilateral cataract extraction Hx of colonoscopy Hx of left mastectomy S/P colonoscopy S/P laparoscopic cholecystectomy (~01/03/18) S/P lumpectomy of breast Family History? Mother Hypertension CVA (cerebral vascular accident)Sister HypertensionFather CVA (cerebral vascular accident)Other Alcohol abuse Anxiety Depression H/O ulcer disease Psychiatric care Social History? household members:? spouse Smoking Status:? Former smoker how long ago did patient quit smoking:? started in high school, quit in 1977; smoked a pack a month, sometimes more alcohol intake:? current alcohol intake frequency: a few times a month Alcohol type: wine substance use type:? does not use diet:? other HPI HPI HPI: 82-year-old female.? I have most recently seen her June 06, 2022.? At that time it was a consultation for thyroid nodule.? The patient had recently had complicated surgery per Dr. Juan A Tinajero for colon cancer.? On her office visit I performed an ultrasound-guided fine-needle aspiration of right lower pole thyroid nodules x2.? Pathology suggested [place] category 2 benign follicular nodule for the right lower anterior nodule while the more posterior nodule had rare follicular cells present.? She does not have a follow-up thyroid ultrasound until May.? I have also previously assisted her with a left mastectomy remotely for breast cancer.? 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 On February 21, 2022 she had a right colectomy.? Then the following day February 22 she underwent exploratory laparoscopy with conversion to laparotomy because of mesenteric tissue with a hematoma.? Her pathology was stage II with a T3 N0 M0 lesion.? She is in need of a follow-up colonoscopy. She has had a heart catheterization.? There is nonclinical disease identified.? She was placed on metoprolol and hydrochlorothiazide and atorvastatin and amlodipine.? She is not on any anticoagulant.? 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 She looks after her great grandchild.? She remains physically active. ROS General General: Yes fatigue and breast cancer; No weight change, appetite, colon cancer or weakness HEENT HEENT: No difficulty swallowing, eye injury, eye surgery, swollen glands or hoarseness Endo Endocrine: No thyroid disease, diabetes mellitus, thyroid cancer, Hair loss, heat intolerance or cold intolerance Skin Skin: No rash or changing moles Breast Breast: No left breast lump, right breast lump, nipple discharge, breast pain, abnormal mammogram, abnormal US or breast enlargement Musc Musculoskeletal: Yes arthritis; No back problems, rheumatoid arthritis, gout or joint pain Cardio Cardiovascular: No murmur, pacemaker, heart disease, atrial fibrillation, high blood pressure, heart attack, heart stent, palpitations, shortness of breat with exertion or chest pain Psych Psychiatric: Yes anxiety; No depression or hearing voices Resp Respiratory: No shortness of breath, No sleep apnea, No cough, No COPD, No asthma, No emphysema and No wheezing Gastro Gastrointestinal: No abdominal pain, No nausea or vomiting, No diarrhea, No constipation, No blood in stool, No acid reflux, No hemorrhoids, No ulcers, No gallbladder problem and No black,tarry stools Jerald Hematologic: No blood thinners, No blood disorders, No bleeding, Yes anemia and No blood clots Neuro Neurologic: No system reviewed and no additional complaints, except as documented, No as per HPI, No abnormal gait, No abnormal hearing, No abnormal movements, No abnormal speech, No behavioral changes, No burning sensations, No confusion, No convulsions, No disequilibrium, No dizziness, No localized weakness, No frequent falls, No headache(s), No lack of coordination, No loss of vision, No memory loss, No numbness, No other visual disturbances, No radicular pain, No restless legs, No sensory deficit, No syncope, No tingling, No tremor(s), No weakness and No other Exam Const General: cooperative, healthy appearing, comfortable and no acute distress HENMT Head: normal to inspection Eyes General: appearance normal, both eyes and all related structures Neck Neck: normal visual inspection Resp Effort & Inspection: normal respiratory effort Auscultation: clear to auscultation bilaterally Cardio Rate: regular rate Rhythm: regular rhythm GI Palpation: soft and no hepatosplenomegaly Musc Cervical Spine: normal cervical lordosis Neuro General: patient alert, patient awake and patient oriented x3 Extrem General: normal to inspection Psych Appearance: grossly normal Assessment and Plan Assessment and Plan (1) Colon cancer: ?Status:?Chronic ?Qualifiers: ?Colon location:?ascending? Qualified Code(s):?C18.2 - Malignant neoplasm of ascending colon ?Plan: I recommended the patient a surveillance colonoscopy with possible biopsy or polypectomy as indicated.? She is aware of the technique, benefit, risk, alternatives.? She has had an opportunity to ask and have questions answered.? We will schedule procedure at her discretion.? I appreciate the ongoing opportunity assisting with her surgical care. Copy: Dr. Prem Trinidad and Dr. Dillan Delarosa M.D., F.A.C.S I have examined the patient and the H&P has been reviewed. There are no clinical changes since date of exam. Hong Delarosa M.D., F.A.C.S.
[2023-03-28 09:52] VITALS: BP 135/62; PULSE 61; RESP 18; TEMP 36.7; O2SAT 98; BMI 22.4
[2023-03-28] MEDS: Lactated Ringers 1,000 ML 15 ML IV (10:04)
[2023-03-28 11:16] VITALS: BP 120/53; BP 135/62; PULSE 70; RESP 16; TEMP 36.5; O2SAT 98
--- NOTE | 2023-03-28 11:18 | OP.COLON_ITS ---
Patient Name: Krissy Ahmadi Procedure Date: 03/28/2023 10:53 AM Date of : 1940 Age: 82 Procedure: Colonoscopy Indications: High risk colon cancer surveillance: Personal history of colon cancer Providers: Hong Delarosa MD Referring MD: Dillan German MD Medicines: See the Anesthesia note for documentation of the administered medications Patient Profile: Last Colonoscopy: 1 year ago. Complications: No immediate complications. Procedure: Pre-Anesthesia Assessment: - Prior to the procedure, a History and Physical was performed, and patient medications and allergies were reviewed. The patient's tolerance of previous anesthesia was also reviewed. The risks and benefits of the procedure and the sedation options and risks were discussed with the patient. All questions were answered, and informed consent was obtained. Prior Anticoagulants: The patient has taken no previous anticoagulant or antiplatelet agents. ASA Grade Assessment: II - A patient with mild systemic disease. After reviewing the risks and benefits, the patient was deemed in satisfactory condition to undergo the procedure. After I obtained informed consent, the scope was passed under direct vision. Throughout the procedure, the patient's blood pressure, pulse, and oxygen saturations were monitored continuously. The adult colonoscope was introduced through the anus and advanced to the ileocolonic anastomosis. The colonoscopy was performed without difficulty. The patient tolerated the procedure well. The quality of the bowel preparation was good. Ileocolonic anastomosis were photographed. Scope In: 11:00:48 AM Scope Withdrawal Time 0 hours 6 minutes 52 seconds Scope Out: 11:12:51 AM Total Procedure Duration Time 0 hours 12 minutes 3 seconds Findings: Hemorrhoids were found on perianal exam. There was evidence of a prior functional end-to-end ileo-colonic anastomosis in the proximal transverse colon. This was patent and was characterized by healthy appearing mucosa. The exam was otherwise without abnormality. Impression: - Hemorrhoids found on perianal exam. - Patent functional end-to-end ileo-colonic anastomosis, characterized by healthy appearing mucosa. - The examination was otherwise normal. - No specimens collected. Recommendation: - Discharge patient to home. - Resume previous diet. - Continue present medications. - Repeat colonoscopy in 3 years for surveillance. Procedure Code(s): --- Professional --- 03230, Colonoscopy, flexible; diagnostic, including collection of specimen(s) by brushing or washing, when performed (separate procedure) Diagnosis Code(s): --- Professional --- Z85.038, Personal history of other malignant neoplasm of large intestine K64.9, Unspecified hemorrhoids Z98.0, Intestinal bypass and anastomosis status CPT copyright 2017 [employer]. All rights reserved. The codes documented in this report are preliminary and upon back sewer review may be revised to meet current compliance requirements. Hong Delarosa MD 03/28/2023 11:17:50 AM This report has been signed electronically. Number of Addenda: 0 Note Initiated On: 03/28/2023 10:53 AM
--- NOTE | 2023-03-28 11:19 | OP.CCLET_ITS ---
03/28/2023 Dillan German MD Re : Colonoscopy procedure for Krissy Ahmadi Dear Dr. German This procedure was performed on Tuesday, March 28, 2023. My impressions and recommendations are as follows: Impressions : - Hemorrhoids found on perianal exam. - Patent functional end-to-end ileo-colonic anastomosis, characterized by healthy appearing mucosa. - The examination was otherwise normal. - No specimens collected. Recommendations : - Discharge patient to home. - Resume previous diet. - Continue present medications. - Repeat colonoscopy in 3 years for surveillance. My findings are described in the full procedure note, which is enclosed. If I can be of further assistance, please feel free to contact me at Doctor phone number(s): Work: . Sincerely, Hong Delarosa MD 03/28/2023 11:17:50 AM This report has been signed electronically.
[2023-03-28 11:20] VITALS: BP 114/54; BP 135/62; PULSE 70; RESP 16; O2SAT 98
[2023-03-28 11:25] VITALS: BP 117/54; BP 135/62; PULSE 67; RESP 16; O2SAT 96
[2023-03-28 11:31] VITALS: BP 104/63; BP 135/62; PULSE 63; RESP 16; TEMP 36.6; O2SAT 95
[2023-03-28 11:55] VITALS: BP 135/62
== END 2023-03-28 12:10 | disposition home or self-care (01) ==
LOC: EN 09:30 → AC 09:31
PROVIDERS: PCP Family Medicine; Referring Provider Surgery; Visit Provider Surgery
PROC: 0DJD8ZZ Inspection of Lower Intestinal Tract, Via Natural or Artificial Opening Endoscopic (ICD-10-PCS; CPT 45378; principal; 2023-03-28 10:40)
DX: Z12.11 Encounter for screening for malignant neoplasm of colon (principal); K64.9 Unspecified hemorrhoids; E04.1 Nontoxic single thyroid nodule; Z87.891 Personal history of nicotine dependence; Z85.038 Personal history of other malignant neoplasm of large intestine; Z98.0 Intestinal bypass and anastomosis status
CPT/HCPCS: G0105; J7120; J2405

== ENCOUNTER 2023-04-16 11:21 | Inpatient (IN) | payer MEDICARE, SELFPAY ==
[2023-04-16] VITALS (8 sets, daily range): BP systolic 145–187; BP diastolic 57–84; PULSE 52–62; RESP 14–18; TEMP 36.1–36.6; O2SAT 92–98; BMI 22.5; BMI 22.6
--- NOTE | 2023-04-16 11:49 | CT_ITS ---
INDICATION: headache, left facial paraesthesias EXAMINATION: CT BRAIN WITHOUT CONTRAST and CTA OF THE BRAIN AND NECK WITH CONTRAST. TECHNIQUE: Noncontrast axial images were obtained of the brain. Subsequently, routine carotid CT angiogram protocol was performed without and with IV contrast. In addition, images were obtained of the [place]. NASCET criteria using the distal ICAs for comparison were used for evaluation of stenoses. 3D reconstructions were reviewed. A radiation dose optimization technique was used for this scan. IV Contrast dosage and agent: 100 cc of [id number]-[id number] COMPARISON: Noncontrast CT scan of the brain of 10-30. FINDINGS: --CT BRAIN: BRAIN PARENCHYMA: No intra- or extra-axial hemorrhage. No evidence of acute infarct. No intracranial mass or mass effect. There is preservation of the womack/white matter interface. Posterior fossa structures are unremarkable. CSF SPACES: Appropriate for age. No hydrocephalus. Basal cisterns are patent. CALVARIUM, SKULL BASE, PARANASAL SINUSES AND MASTOID AIR CELLS: Clear. No discrete lytic or blastic abnormalities. ASPECTS Score for Acute Strokes: 10 CTA NECK: AORTIC ARCH AND BRANCHES: Normal anatomy, patent. RIGHT CCA: Mild eccentric atherosclerotic calcifications in the region of the bilateral. No occlusion or significant stenosis. No evidence of dissection. RIGHT ICA: No occlusion, significant stenosis or dissection. LEFT CCA: No occlusion, significant stenosis or dissection. LEFT ICA: No occlusion, significant stenosis or dissection. RIGHT VERTEBRAL ARTERY: No occlusion, significant stenosis or dissection. LEFT VERTEBRAL ARTERY: No occlusion, significant stenosis or dissection. NECK SOFT TISSUES: Unremarkable. CTA HEAD: --Anterior circulation: ICAs: No significant stenosis at the intracranial/visualized segments. ACAs: No significant stenosis at the visualized A1 and A2 segments. ACOM: Present. MCAs: No significant stenosis at the visualized M1 and M2 segments. --Posterior circulation: PCOMs: Nonvisualization of both posterior communicating arteries. peoplesoft hcm developer: No significant stenosis at the visualized segments. BASILAR ARTERY: No significant stenosis. VERTEBRAL ARTERIES: No significant stenosis at the intradural/visualized segments. No evidence of intracranial aneurysm or vascular malformation. CT/CTA Head AND Neck W/ Contrast IMPRESSION: 1. No acute intracranial process. 2. No great vessel intracranial stenosis is seen. 3. Minimal atherosclerotic calcifications of the right carotid bulb without significant stenosis. Otherwise unremarkable common and internal carotid arteries. 4. Unremarkable vertebral arteries. Electronically Signed: Lester Smith MD at 14:30 EDT ,
--- NOTE | 2023-04-16 11:49 | RAD_ITS ---
INDICATION: back pain EXAMINATION/TECHNIQUE: X-RAY - XR Chest 1 View COMPARISON: Prior exam of 01/17/2015. FINDINGS: LINES/DEVICES: None. LUNGS: No focal infiltrate is seen. Surgical clips are again seen in the left lower chest. Questionable nodular density in the right lower lung probably due to summation of shadows. No evidence of pleural effusions. MEDIASTINUM AND CARDIOVASCULAR STRUCTURES: Cardiac silhouette not enlarged. Central airways and mediastinal contour are unremarkable. BONES AND SOFT TISSUES: Unremarkable. RAD/Chest 1 View (Portable) IMPRESSION: No radiographic evidence of acute cardiopulmonary disease. Electronically Signed: Lester Smith MD at 13:46 EDT ,
--- NOTE | 2023-04-16 11:50 | EX.ED.DYSGE1 ---
HPI History of Present Illness Chief Complaint: Neuro S/Sx Detail of Chief Complaint: Headache and numbness to left face Informant: patient Narrative Narrative: Patient presents with a headache that started 3 days ago. Patient states that initially she felt some discomfort in her back that radiated up her neck and then developed a headache with it. Patient went home and took some ibuprofen and eventually by that evening her headache resolved. She states she felt well yesterday morning and then she went to the store and developed some pain in her left shoulder blade that again radiated up her neck and gave her headache. She then subsequently noticed numbness to the left side of the face. Patient currently states her headache is mild and rates it about a 3 out of 10. Patient still with numbness to the left side of her face. She denies weakness to the extremities or paresthesias in the extremities. She is never had symptoms like this before. She denies any recent falls or head injuries. She denies chest pain. She denies recent illness. [facility] Medical History Abnormal ECG Abnormal serum enzyme level Alcohol use Anemia Anxiety and depression Arthritis Back pain [facility] Cancer Cancer Cardiology follow-up encounter Chronic cholecystitis Colitis Colon cancer DDD (degenerative disc disease), cervical Depression Essential hypertension Former smoker Genetic predisposition to cancer Hemorrhoids High cholesterol History of breast cancer History of colitis History of diverticulitis History of echocardiogram History of irregular heartbeat History of left breast cancer HLD (hyperlipidemia) Hypertension Injury of back Injury of head and neck Normal stress echocardiogram Osteoporosis Pancreatitis Post-menopausal Right bundle branch block (RBBB) Screen for colon cancer Syncope Thyroid nodule Vasovagal syncope Wears dentures Wears glasses Wears hearing aid Home Medications sertraline 50 mg tablet (Zoloft) 50 mg PO DAILY DEPRESSION 12/28/17 [History Last Taken 02/21/22] calcium citrate 250 mg calcium-vitamin D3 5 mcg (200 unit) tablet (Citracal Regular) 1 tab PO DAILY 03/08/22 [History Last Taken Unknown] cyclosporine 0.05 % eye drops in a dropperette 1 drp EACH EYE BID 03/08/22 [History Last Taken Unknown] ggqzhqvc-yrv-zpmwi acid 0.4 mg-lycopene 300 mcg-lutein 250 mcg tablet (Centrum Silver) 1 tab PO DAILY 03/08/22 [History Last Taken Unknown] sodium chloride 2 % eye drops (Itzel 128) 1 drp ophthalmic (eye) DAILY PRN PRN Dry Eyes 03/08/22 [History Last Taken Unknown] hydrochlorothiazide 12.5 mg capsule 12.5 mg PO DAILY 05/20/22 [History Last Taken Unknown] amlodipine 2.5 mg tablet (Norvasc) 2.5 mg PO DAILY #90 tabs 07/27/22 [Rx Last Taken 03/28/23] atorvastatin 40 mg tablet 40 mg PO QHS #90 tabs 07/27/22 [Rx Last Taken Unknown] metoprolol succinate 25 mg tablet,extended release 24 hr 25 mg PO DAILY #90 tabs 07/27/22 [Rx Last Taken 03/28/23] Devil's claw 1 cap PO DAILY PRN PRN Pain 12/01/22 [History Last Taken Unknown] diphenoxylate-atropine 2.5 mg-0.025 mg tablet (Lomotil) 1 tab PO 4X/DAY PRN diarrhea 12/01/22 [History Last Taken Unknown] loratadine 10 mg tablet 10 mg PO DAILY PRN allergy symptoms 12/01/22 [History Last Taken Unknown] Allergy/AdvReac Type Severity Reaction Status Date / Time ciprofloxacin [From Cipro] Allergy Mild hives Verified 04/16/23 11:26 mesalamine Allergy Mild Hives Verified 04/16/23 11:26 alendronate sodium Allergy Unknown Diarrhea Verified 04/16/23 11:26 [From Fosamax] povidone-iodine Allergy Rash Verified 04/16/23 11:26 [From Betagen (povidone-iodine)] latex AdvReac Hives Verified 04/16/23 11:26 pneumococcal vaccine AdvReac Other Verified 04/16/23 11:26 Family History Mother Hypertension CVA (cerebral vascular accident) Sister Hypertension Father CVA (cerebral vascular accident) Other Alcohol abuse Anxiety Depression H/O ulcer disease Psychiatric care Surgical History History of cardiac catheterization (10/23/14) History of left heart catheterization (LHC) (~07/27/22) History of mastectomy History of right hemicolectomy (02/21/22) Hx of appendectomy Hx of bilateral cataract extraction Hx of colonoscopy Hx of left mastectomy S/P colonoscopy S/P laparoscopic cholecystectomy (~01/03/18) S/P lumpectomy of breast Social History household members: spouse Smoking Status: Former smoker how long ago did patient quit smoking: started in high school, quit in 1977; smoked a pack a month, sometimes more alcohol intake: current alcohol intake frequency: a few times a month Alcohol type: wine substance use type: does not use diet: other ROS ROS ED Review of Systems ROS Unobtainable: other Constitutional Constitutional ED: Reports lethargy; Denies chills, fever(s), sweats or weight loss Eyes Eyes: Denies blurry vision, change in vision or diplopia ENT ENT ED: Denies rhinorrhea or sore throat Cardiovascular Cardiovascular: Denies chest pain, orthopnea or racing heartbeat Respiratory/Chest Respiratory/Chest: Denies cough, dyspnea, dyspnea on exertion, orthopnea or sputum Gastrointestinal Gastrointestinal: Denies abdominal pain, diarrhea, nausea or vomiting Genitourinary Genitourinary ED: Denies dysuria, hematuria or urinary frequency Musculoskeletal Musculoskeletal: Reports back pain; Denies arthralgias, myalgias or neck pain Integumentary Denies abscess, Abrasions or rash Neurologic Neurologic: Reports headache(s) and paresthesias; Denies weakness Psychiatric Psychiatric: Denies anxiety, depression or suicidal thoughts Endocrine Endocrinology: Denies polydipsia, polyphagia or polyuria Hematologic/Lymphatic Hematologic/Lymphatic: Denies easy bleeding, easy bruising or lymphadenopathy Allergic/Immunologic Allergic/Immunologic ED: Denies mouth swelling, tongue swelling or urticaria EXAM Physical Exam Const Vital Signs: 04/16/23 11:22 04/16/23 12:40 Temperature 97.2 F L Temperature Source Temporal Pulse Rate 62 52 L Respiratory Rate 16 18 Blood Pressure 187/84 H 173/60 H Blood Pressure Mean 118 97 Pulse Ox 97 94 Oxygen Delivery Method Room Air Room Air Positive well nourished and well developed General Appearance ED: well developed and NAD HEENT Reports TM's clear and moist mucous membranes HEENT Narrative: Decree sensation to left side of face. normocephalic and atraumatic; Negative for trauma or tenderness Tympanic Membrane ED: Yes TM's clear Eyes PERRL and EOMs intact bilaterally General Eye ED: Negative for pale conjunctiva or scleral icterus Neck no lymphadenopathy, supple and no JVD General: Negative for tenderness Chest Wall inspection of chest normal and palpation of chest normal Chest: Negative for tenderness Resp normal respiratory effort and clear to auscultation bilaterally Effort and Inspection: Negative for respiratory distress or pain with movement Auscultation: Negative for rhonchi, wheezes or diminished lung sounds Cardio regular rate, regular rhythm, S1 normal heart sound, S2 normal heart sound and no murmurs Peripheral Pulses: pulses 2+ throughout GI normal to inspection, nondistended, normoactive bowel sounds, soft to palpation, non-tender, non-distended and no masses Back/Spine no CVA tenderness and no thoracic nor lumbar tenderness Extremity normal to inspection General Extremety ED: Negative for edema General Extremity: Negative for edema Neuro oriented x3, CN's II-XII intact bilaterally, no sensory deficits noted and gait normal Neuro Narrative: NIH stroke scale is a 1 due to paresthesias to left side of the face. No focal motor neurodeficits noted. Sensorium / Orientation: awake, alert, oriented to person, oriented to place and oriented to time Motor Exam: strength 5/5 throughout and strength abnormal Psych mental status grossly normal Skin no rashes or lesions noted and no wounds MDM MDM MDM Narrative Medical decision making narrative: Patient presents with complaint of back pain and headache as well as paresthesias to the left side of her face. Initially she denied chest pain. In the differential would be migraine versus complex migraine versus stroke versus intracranial hemorrhage. IV line established. EKG obtained arrival showed a sinus rhythm with a ventricular rate of 54 bpm with right bundle branch block and no acute ST segment changes. CBC with differential was unremarkable. Chemistries unremarkable. Troponin was elevated 103. Urinalysis unremarkable. CTA of the head and neck obtained were unremarkable. Patient was given aspirin. After discussing further with patient results and asking about chest patient that she had some intermittent episodes of some mild chest discomfort. She tells me she had a heart cath a year ago and I was able to look that up and she did have a 50% stenosis of her mid LAD as well as some stenosis of her circumflex of over 60%. Etiology of her facial paresthesias unclear as there is no evidence of a Eller's palsy. Feel it would be reasonable to admit patient further rule out stroke. She is not a thrombolytic candidate given that she has had symptoms for more than 24 hours. Patient case discussed with hospitalist to evaluate patient for admission. Lab Data Attestation: I reviewed the patient's lab results. Labs: Laboratory Results - last 24 hr 04/16/23 04/16/23 11:52 12:06 WBC 5.3 RBC 4.51 Hgb 14.4 Hct 43.3 MCV 96.0 MCH 31.9 MCHC 33.3 RDW Std Deviation 44.6 H RDW Coeff of Michelle 12.6 Plt Count 174 MPV 9.9 Immature Gran % (Auto) 0.400 Neut % (Auto) 65.8 Lymph % (Auto) 23.9 [place] % (Auto) 6.3 Eos % (Auto) 2.7 Baso % (Auto) 0.9 Absolute Neuts (auto) 3.5 Absolute Lymphs (auto) 1.26 Nucleated RBC % 0 Sodium 139 Potassium 4.0 Chloride 106 Carbon Dioxide 30.0 Anion Gap 3 L BUN 14 Creatinine 0.70 Estim Creat Clear Calc 40.38 Est GFR (MDRD) Af Amer 104 Est GFR (MDRD) Non-Af 86 BUN/Creatinine Ratio 20.1 H Glucose 92 Calcium 10.0 Troponin I High Sens 103 H Urine Color Yellow Urine Clarity Clear Urine pH 7.0 Ur Specific [place] 1.005 Urine Protein Negative Urine Glucose (UA) Normal Urine Ketones Negative Urine Occult Blood Negative Urine Nitrite Negative Urine Bilirubin Negative Urine Urobilinogen Normal Ur Leukocyte Esterase Negative Urine RBC 0 SEEN Urine WBC 0 SEEN Ur Squamous Epith Cells 0 SEEN Urine Bacteria 0 SEEN Urine Mucus 0 SEEN Radiography Diagnostic Testing: Clinical Impression(s) from Imaging Studies Chest X-Ray 04/16/23 11:49 IMPRESSION: No radiographic evidence of acute cardiopulmonary disease. Electronically Signed: Lester Smith MD at 13:46 EDT , Head/Neck CTA 04/16/23 11:49 IMPRESSION: 1. No acute intracranial process. 2. No great vessel intracranial stenosis is seen. 3. Minimal atherosclerotic calcifications of the right carotid bulb without significant stenosis. Otherwise unremarkable common and internal carotid arteries. 4. Unremarkable vertebral arteries. Electronically Signed: Lester Smith MD at 14:30 EDT , 1 view chest ray obtained interpreted by myself as no evidence of infiltrate or pneumothorax or acute disease process. EKG Initial EKG: Attestation: I personally reviewed and interpreted this EKG as follows: Comments: Sinus rhythm with a rate of 54 bpm with right bundle branch block Discharge Plan Triage Chief Complaint: Neuro S/Sx ED Provider: Chelle Qureshi Dx/Rx/DC Orders Clinical Impression: Headache, Facial paresthesia, Elevated troponin Prescriptions: No Action Centrum Silver 0.4 mg-300 mcg- 250 mcg tablet 1 tab PO DAILY calcium citrate-vitamin D3 [Citracal Regular] 250 mg-5 mcg (200 unit) tablet 1 tab PO DAILY Itzel 128 2 % drops 1 drp ophthalmic (eye) DAILY PRN PRN (Reason: Dry Eyes) hydrochlorothiazide 12.5 mg capsule 12.5 mg PO DAILY Patient Comments: TAKE 1 CAPSULE BY MOUTH ONCE DAILY loratadine 10 mg tablet 10 mg PO DAILY PRN (Reason: allergy symptoms) Devil's claw 1 cap PO DAILY PRN PRN (Reason: Pain) diphenoxylate-atropine [Lomotil] 2.5-0.025 mg tablet 1 tab PO 4X/DAY PRN (Reason: diarrhea) sertraline [Zoloft] 50 MG tablet 50 mg PO DAILY cyclosporine 0.05 % dropperette 1 drp EACH EYE BID Rx Instructions: Restasis atorvastatin 40 mg tablet 40 mg PO QHS Qty: 90 3RF amlodipine [Norvasc] 2.5 mg tablet 2.5 mg PO DAILY Qty: 90 3RF metoprolol succinate 25 mg tablet extended release 24 hr 25 mg PO DAILY Qty: 90 3RF Primary Care Provider: Dillan German Referrals: Dillan German MD [Primary Care Provider] - Disposition Disposition: Acute Care Hospital [facility]
[2023-04-16 12:07] LABS: Absolute Lymphocyte Count 1.26 X10^3/uL (0.83-4.51); Absolute Neutrophil Count 3.5 X10^3/uL (2.0-7.7); Basophil# 0.05 X10^3/uL; Basophil% 0.9 % (0-1); Eosinophil# 0.14 X10^3/uL; Eosinophils% 2.7 % (0-5); Hematocrit 43.3 % (37-47); Hemoglobin 14.4 g/dL (12.0-15.0); Lymphocyte # 1.26 X10^3/ul (0.83-4.51); Lymphocyte % 23.9 % (19-41); Mean Corp Hgb Conc 33.3 g/dL (32-36); Mean Corpuscular Hgb 31.9 pg (27.0-32.0); Mean Platelet Vol. 9.9 fl (6.2-12.0); Monocyte# 0.33 X10^3/uL; Monocyte% 6.3 % (0-10); NRBC Flagged by Analyzer 0 % (0-5); Neutrophil # 3.48 X10^3/uL (2.7-7.7); Neutrophil % 65.8 % (47-70); Platelet Count 174 K/mm3 (150-450); RBC Distribution Width CV 12.6 % (11.6-14.6); RBC Distribution Width SD 44.6 fl (35.1-43.9); Red Blood Count 4.51 M/mm3 (4.2-5.4); White Blood Count 5.3 K/mm3 (4.4-11.0)
[2023-04-16 12:26] LABS: Anion Gap 3 (5-15); BUN 14 mg/dL (7-18); BUN/Creat Ratio 20.1 RATIO (10-20); Chloride 106 mmol/L (98-107); EST Glomerular Filtration Rate 86 mL/min (>60); Est Glom Filt Rate - Afr Amer 104 mL/min (>60); Estimated Creatinine Clearance 40.38 ml/min; Glucose 92 mg/dL (74-106); Sodium Level 139 mmol/L (136-145); Troponin-I HS 103 pg/mL (3.0-54.0)
[2023-04-16] MEDS: 0.9% Normal Saline 1,000 ML 150 ML IV (12:33)
[2023-04-16 12:39] LABS: Bacteria 0 SEEN /hpf (None Seen); Mucous, Urine 0 SEEN /hpf (<or=2+); Red Blood Cells-Urine 0 SEEN /hpf (0-5); Squamous Epithelial Cells - UA 0 SEEN /hpf (5-10); White Blood Cells 0 SEEN /hpf (0-5)
--- NOTE | 2023-04-16 12:40 | EKG12_ITS ---
Test Reason : NEURO Blood Pressure : / mmHG Vent. Rate : 054 BPM Atrial Rate : 054 BPM P-R Int : 150 ms QRS Dur : 146 ms QT Int : 462 ms P-R-T Axes : 066 -43 087 degrees QTc Int : 438 ms Sinus bradycardia Left axis deviation Right bundle branch block Left ventricular hypertrophy with repolarization abnormality ( R in aVL , Romhilt-Roth ) Cannot rule out Septal infarct , age undetermined Lateral infarct , age undetermined Abnormal ECG Confirmed by NORMAN DUNHAM, DARWIN ([id number]), state editor YANA PEREIRA ([id number]) on 04/19/2023 11:43:48 AM Referred By: Confirmed By:JONATHAN AUSTIN MD
[2023-04-16 12:45] LABS: Color, Urine Yellow (Yellow); Glucose, Dipstick Normal (Normal); Ketone-Dipstick Negative (Negative); Leukocyte Esterase-Dipstick Negative /ul (Negative); Nitrite-Dipstick Negative (Negative); Occult Blood-Urine Negative /ul (Negative); Protein-Dipstick Negative (Negative); Specific Gravity, Urine 1.005 (1.002-1.030); Urine Bilirubin Dipstick Negative (Negative); Urine Clarity Clear (Clear); Urine Urobilinogen Normal (Normal)
--- NOTE | 2023-04-16 15:06 | PCM.HP.STD ---
[facility] - [facility] General Date of Service: 04/16/23 Chief Complaint: Headache and facial numbness [facility] Narrative UMA SANTILLAN, is a 82 F who presents with a headache and facial numbness. Over the weekend, particular yesterday, patient started experiencing a frontal headache and then had some left facial numbness. Was also having some back pain extending from her lower back, across her upper shoulders and upper neck. She was concerned and presented to the emergency room. In the emergency room she underwent a head CTA and neck CTA that were unremarkable. In passing, patient also stated that she is having some chest pain but not out of the ordinary of her typical chest pain. Currently chest pain-free. I did do a troponin that came back at 103. With her ongoing facial numbness, headache and elevated troponins, the hospital service was contacted for admission. [facility] Medical History Abnormal ECG Abnormal serum enzyme level Alcohol use Anemia Anxiety and depression Arthritis Back pain [facility] Cancer Cancer Cardiology follow-up encounter Chronic cholecystitis Colitis Colon cancer DDD (degenerative disc disease), cervical Depression Essential hypertension Former smoker Genetic predisposition to cancer Hemorrhoids High cholesterol History of breast cancer History of colitis History of diverticulitis History of echocardiogram History of irregular heartbeat History of left breast cancer HLD (hyperlipidemia) Hypertension Injury of back Injury of head and neck Normal stress echocardiogram Osteoporosis Pancreatitis Post-menopausal Right bundle branch block (RBBB) Screen for colon cancer Syncope Thyroid nodule Vasovagal syncope Wears dentures Wears glasses Wears hearing aid Home Medications sertraline 50 mg tablet (Zoloft) 50 mg PO DAILY DEPRESSION 12/28/17 [History Last Taken 02/21/22] calcium citrate 250 mg calcium-vitamin D3 5 mcg (200 unit) tablet (Citracal Regular) 1 tab PO DAILY 03/08/22 [History Last Taken Unknown] cyclosporine 0.05 % eye drops in a dropperette 1 drp EACH EYE BID 03/08/22 [History Last Taken Unknown] alorzhxb-mvz-imyea acid 0.4 mg-lycopene 300 mcg-lutein 250 mcg tablet (Centrum Silver) 1 tab PO DAILY 03/08/22 [History Last Taken Unknown] sodium chloride 2 % eye drops (Itzel 128) 1 drp ophthalmic (eye) DAILY PRN PRN Dry Eyes 03/08/22 [History Last Taken Unknown] hydrochlorothiazide 12.5 mg capsule 12.5 mg PO DAILY 05/20/22 [History Last Taken Unknown] amlodipine 2.5 mg tablet (Norvasc) 2.5 mg PO DAILY #90 tabs 07/27/22 [Rx Last Taken 03/28/23] atorvastatin 40 mg tablet 40 mg PO QHS #90 tabs 07/27/22 [Rx Last Taken Unknown] metoprolol succinate 25 mg tablet,extended release 24 hr 25 mg PO DAILY #90 tabs 07/27/22 [Rx Last Taken 03/28/23] Devil's claw 1 cap PO DAILY PRN PRN Pain 12/01/22 [History Last Taken Unknown] diphenoxylate-atropine 2.5 mg-0.025 mg tablet (Lomotil) 1 tab PO 4X/DAY PRN diarrhea 12/01/22 [History Last Taken Unknown] loratadine 10 mg tablet 10 mg PO DAILY PRN allergy symptoms 12/01/22 [History Last Taken Unknown] Allergy/AdvReac Type Severity Reaction Status Date / Time ciprofloxacin [From Cipro] Allergy Mild hives Verified 04/16/23 11:26 mesalamine Allergy Mild Hives Verified 04/16/23 11:26 alendronate sodium Allergy Unknown Diarrhea Verified 04/16/23 11:26 [From Fosamax] povidone-iodine Allergy Rash Verified 04/16/23 11:26 [From Betagen (povidone-iodine)] latex AdvReac Hives Verified 04/16/23 11:26 pneumococcal vaccine AdvReac Other Verified 04/16/23 11:26 Family History Mother Hypertension CVA (cerebral vascular accident) Sister Hypertension Father CVA (cerebral vascular accident) Other Alcohol abuse Anxiety Depression H/O ulcer disease Psychiatric care Surgical History History of cardiac catheterization (10/23/14) History of left heart catheterization (LHC) (~07/27/22) History of mastectomy History of right hemicolectomy (02/21/22) Hx of appendectomy Hx of bilateral cataract extraction Hx of colonoscopy Hx of left mastectomy S/P colonoscopy S/P laparoscopic cholecystectomy (~01/03/18) S/P lumpectomy of breast Social History household members: spouse Smoking Status: Former smoker how long ago did patient quit smoking: started in high school, quit in 1977; smoked a pack a month, sometimes more alcohol intake: current alcohol intake frequency: a few times a month Alcohol type: wine substance use type: does not use diet: other ROS ROS Narrative States her face feels fuzzy. States that her thinking is also fuzzy. All review of systems were negative except as mentioned above in the history of present illness and the other review of systems. Vital Signs Vital Signs Vital Signs: 04/16/23 11:22 04/16/23 12:40 Temperature 36.2 C L Temperature Source Temporal Pulse Rate 62 52 L Respiratory Rate 16 18 Blood Pressure 187/84 H 173/60 H Blood Pressure Mean 118 97 Pulse Ox 97 94 Oxygen Delivery Method Room Air Room Air Weight Weight: 61.49 kg Body Mass Index (BMI) 22.5 Physical Exam Narrative - Physical Exam General: Alert, Oriented x3, Cooperative HEENT: Atraumatic, PERRLA, EOMI, Normocephalic Oral: Moist Mucosa, No Gingival or Mucosal Lesions/ Ulcerations Neck: Supple, No JVD, Negative Carotid Bruits Lungs: Clear to auscultation, Normal air movement Cardiovascular: Regular rate, Normal S1, Normal S2, No murmurs Abdomen: Bowel Sounds Present, Soft, Non Tender, Non-Distended, No Hepato-splenomegaly Extremities: No clubbing, No cyanosis, No edema, Capillary Refill Less than 3 Seconds Skin: No rashes, No breakdown Musculoskeletal: No Tenderness to Palpation of Joints or Extremities Neurological: Neuro grossly intact. Cranials 2 through 12 gross intact. Muscle strength is 5-5 in upper lower extremities bilaterally. Diminished sensation on the left side of her face. Sensation intact in upper and lower extremities. Psych/Mental Status: Normal Affect, Appropriate Results Lab / Micro Data Attestation: I reviewed the patient's lab results. 04/16/23 11:52 04/16/23 11:52 Labs: Laboratory Results - last 24 hr 04/16/23 11:52: WBC 5.3, RBC 4.51, Hgb 14.4, Hct 43.3, MCV 96.0, MCH 31.9, MCHC 33.3, RDW Std Deviation 44.6 H, RDW Coeff of Michelle 12.6, Plt Count 174, MPV 9.9, Immature Gran % (Auto) 0.400, Neut % (Auto) 65.8, Lymph % (Auto) 23.9, [place] % (Auto) 6.3, Eos % (Auto) 2.7, Baso % (Auto) 0.9, Absolute Neuts (auto) 3.5, Absolute Lymphs (auto) 1.26, Nucleated RBC % 0, Sodium 139, Potassium 4.0, Chloride 106, Carbon Dioxide 30.0, Anion Gap 3 L, BUN 14, Creatinine 0.70, Estim Creat Clear Calc 40.38, Est GFR (MDRD) Af Amer 104, Est GFR (MDRD) Non-Af 86, BUN/Creatinine Ratio 20.1 H, Glucose 92, Calcium 10.0, Troponin I High Sens 103 H 04/16/23 12:06: Urine Color Yellow, Urine Clarity Clear, Urine pH 7.0, Ur Specific [place] 1.005, Urine Protein Negative, Urine Glucose (UA) Normal, Urine Ketones Negative, Urine Occult Blood Negative, Urine Nitrite Negative, Urine Bilirubin Negative, Urine Urobilinogen Normal, Ur Leukocyte Esterase Negative, Urine RBC 0 SEEN, Urine WBC 0 SEEN, Ur Squamous Epith Cells 0 SEEN, Urine Bacteria 0 SEEN, Urine Mucus 0 SEEN EKG Initial EKG: Attestation: I personally reviewed and interpreted this EKG as follows: Prior EKG tracings: available for review EKG Rhythm Intrepretation: Sinus Rhythm (Right bundle branch block. LVH. No change since February 17, 2022.) Radiology Impression Chest X-Ray 04/16/23 11:49 IMPRESSION: No radiographic evidence of acute cardiopulmonary disease. Electronically Signed: Lester Smith MD at 13:46 EDT , Head/Neck CTA 04/16/23 11:49 IMPRESSION: 1. No acute intracranial process. 2. No great vessel intracranial stenosis is seen. 3. Minimal atherosclerotic calcifications of the right carotid bulb without significant stenosis. Otherwise unremarkable common and internal carotid arteries. 4. Unremarkable vertebral arteries. Electronically Signed: Lester Smith MD at 14:30 EDT , Assessment & Plan Assessment/Plan (1) Facial paresthesia: PLAN: Concern is for TIA or stroke. Other possibilities could be atypical migraine. Plan is to continue with the stroke work-up including an MRI of the brain, 2D echocardiogram, fasting lipid panel as well as physical and Occupational Therapy. Will start clopidogrel (pt w allergy to mesalamine) (2) Elevated troponin: PLAN: Patient had a cardiac cath on July 27, 2022 that showed minimal disease involving left anterior descending artery but did have symptoms stenosis up to 50% and asked the stenosis of the diagonal artery. The recommendation was to continue with medical therapy with beta-blockers and calcium channel blockers. Patient did not improved, the consideration would be for FFR and/or shockwave lithotripsy to the mid left anterior descending artery. Patient mentioned that she is having chest pain and passing as she has this on a regular basis. I did discuss the case with Dr. Mix and stated that if the troponin is relatively the same or trending down then to follow-up as outpatient but if trends up then will bring in cardiology for further evaluation. PLAN: Plan Chronic conditions Hypertension: Continue with amlodipine, HCTZ, metoprolol succinate Hyperlipidemia: Continue with atorvastatin History of colon cancer status post right hemicolectomy in February 2022. Routine colonoscopies. Patient follows up with with her cancer center History of breast cancer: Status post left mastectomy. Follow-up with [facility] VTE prophylaxis: low risk. pt ambulatory. Code status: DNRCCA. DW pt. Charges/Coding Visit Charges Inpatient E&M: 10649 Init Hosp L3
--- NOTE | 2023-04-16 15:10 | NURSING ---
PCU OBS [facility]
--- NOTE | 2023-04-16 15:57 | ECHOCS_ITS ---
Reason For Study: TIA/CVA Procedure This was a 2D Doppler, Color Flow transthoracic echocardiogram. The study was technically difficult. Contrast injection was performed. Exam performed portable in patient room. Left Ventricle Normal LV size. The estimated ejection fraction is 65 %. Unable to assess diastolic dysfunction. No regional wall motion abnormalities noted. Right Ventricle Normal RV size. Normal systolic function. Atria The left atrium is mildly enlarged. Normal right atrium. No doppler evidence for ASD. Bubble contrast study negative for right to left interatrial shunt. Mitral Valve There is severe mitral annular calcification. There is no mitral valve stenosis. No mitral valve insufficiency. Tricuspid Valve There is no tricuspid stenosis. Unable to estimate RV systolic pressure due to inadequate jet, pulmonary artery pressure probably normal. Aortic Valve Aortic sclerosis, no stenosis. There is no aortic stenosis. Trivial aortic valve insufficiency. Pulmonic Valve There is no pulmonic valvular stenosis. Trivial pulmonic valve insufficiency. Great Vessels Normal aortic root. Pericardium/Pleural No pericardial effusion. Medication Diluted definity 2ml given slow IV push to enhance endocardial definition. Performed a rapid injection of agitated mix of 9 cc saline and 1cc air to assess for atrial septal defect. MMode/2D Measurements & Calculations LVIDd: 4.3 cm IVSd: 0.88 cm LA dimension: 3.9 cm LVIDs: 3.0 cm LVPWd: 1.1 cm RVDd: 3.1 cm FS: 30.0 % LAV(MOD-bp): 59.0 ml LA A4 area: 18.7 cm2 RA A4 area: 13.9 cm2 LAV(MOD-bp) Indexed: 35.1 ml/m2 LAV(MOD-sp2): 63.7 ml LAV(MOD-sp4): 51.5 ml Time Measurements MV dec time: 0.52 sec Doppler Measurements & Calculations MV E max tim: 67.9 cm/sec Lat Peak E' Tim: 4.6 cm/sec Med Peak E' Tim: 3.5 cm/sec MV A max tim: 117.8 cm/sec E/E' lat: 14.8 E/E' med: 19.3 MV E/A: 0.58 MV V2 max: 137.7 cm/sec MV P1/2t max tim: 87.7 cm/sec Ao V2 max: 151.2 cm/sec MV max P.6 mmHg MV P1/2t: 176.1 msec Ao max P.2 mmHg MV V2 mean: 62.0 cm/sec MV dec slope: 145.9 cm/sec2 Ao V2 mean: 102.0 cm/sec MV mean P.8 mmHg Ao mean P.8 mmHg MV V2 VTI: 44.8 cm MVA(P1/2t): 1.2 cm2 Ao V2 VTI: 34.4 cm AV (velocity ratio): 0.94 AI max tim: 407.1 cm/sec LV V1 max: 142.9 cm/sec PA V2 max: 84.1 cm/sec AI max P.3 mmHg LV V1 max P.2 mmHg PA V2 mean: 56.1 cm/sec AI dec slope: 214.5 cm/sec2 LV V1 mean P.2 mmHg AI P1/2t: 556.0 msec LV V1 mean: 93.3 cm/sec LV V1 VTI: 32.2 cm ECHO/Echo Complete W/ Contrast Interpretation Summary The estimated ejection fraction is 65 %. Unable to assess diastolic dysfunction. The left atrium is mildly enlarged. Trivial aortic valve insufficiency. Ordering Physician: Jose E Gutierrez Performed By: Louis Ruiz RCS
[2023-04-16 16:59] LABS: Troponin-I HS 110 pg/mL (3.0-54.0)
[2023-04-16] MEDS: Clopidogrel Bisulfate 75 MG Tablet PO (17:05)
[2023-04-16] MEDS: Acetaminophen 325 MG Tablet 650 MG PO (17:05)
[2023-04-16 19:18] LABS: Troponin-I HS 109 pg/mL (3.0-54.0)
[2023-04-16] MEDS: Atorvastatin Calcium 40 MG Tablet PO (21:34)
[2023-04-16] MEDS: Glycerin/Hypromellose/PEG400 15 ml Bottle EACH EYE (21:34)
[2023-04-17] VITALS (11 sets, daily range): BP systolic 131–149; BP diastolic 65–78; PULSE 56–66; RESP 16–18; TEMP 36.4–37.1; O2SAT 97–98; BMI 22.6
[2023-04-17 07:32] LABS: Cholesterol 111 mg/dL (200); High Density Lipoprotein 54 mg/dL; Triglycerides 68 mg/dL; Very Low Density Lipoprotein 14 mg/dL (5-40)
[2023-04-17] MEDS: Clopidogrel Bisulfate 75 MG Tablet PO (08:56)
[2023-04-17] MEDS: Sertraline 50 MG Tablet PO (08:56)
[2023-04-17] MEDS: amLODIPine 2.5 MG Tablet PO (08:56)
[2023-04-17] MEDS: Metoprolol(XL)Succ 25 MG Tablet PO (08:56)
[2023-04-17] MEDS: hydroCHLOROthiazide 12.5mg 12.5 MG PO (08:56)
--- NOTE | 2023-04-17 09:00 | MRI_ITS ---
STUDY: MRI BRAIN WITHOUT CONTRAST REASON FOR EXAM: Female, 82 years old. CVA LEFT FACE NUMBNESS TECHNIQUE: Standardized multiplanar fat and water weighted pulse sequences were obtained. MRI examination of the brain obtained with standard protocol including multiplanar multiecho noncontrast imaging. Contrast: No contrast administered. COMPARISON: Prior study dated: 05/27/2015 HEMISPHERES, CEREBELLUM AND BRAINSTEM: 1. The cerebral parenchyma, ventricular system, subarachnoid spaces have normal configuration and density. There is a normal gyral pattern. There is normal womack/white differentiation. No midline shift.. 2. Mild involutional changes and scattered chronic microvascular deep white matter changes. No areas of fluid restriction or acute ischemia. No areas of hemosiderin deposition or hemorrhage. 3. No intraparenchymal mass, hemorrhage, or acute territorial infarct. 4. The cerebellum, brainstem, basilar and suprasellar cisterns have normal appearance. No Chiari malformation. PITUITARY: Infundibulum and pituitary have normal configuration. Midline structures appear normal. CSF SPACES: Appropriate for age. No hydrocephalus. Basal cisterns are patent. VESSELS: 1. There are normal flow voids noted in the great vessels at the skull base ORBITS AND PARANASAL SINUSES: 1. Both globes, extraocular muscles, optic nerves and retrobulbar fat appear unremarkable. 2. Mild chronic ethmoid sinus disease. The remaining paranasal sinuses have normal appearance. BONY ELEMENTS: Bony elements of the cranial vault, facial skeleton and skull base have normal appearance. SCALP AND SOFT TISSUES: Normal appearance of the soft tissues of the scalp and the visualized face OTHER: None MRI/Brain without Contrast IMPRESSION: 1. Mild involutional change, chronic microvascular deep white matter disease noted. 2. No intracranial mass, hemorrhage, or acute territorial infarct. 3. Mild chronic sinus mucosal thickening. Electronically Signed: Shabbir Melo MD at 1:56 EDT ,
[2023-04-17] MEDS: Acetaminophen 325 MG Tablet 650 MG PO (09:03)
--- NOTE | 2023-04-17 12:05 | CASEMGMT ---
RN CM Face to Face with patient for initial transition planning/care coordination assessment. RN CM introduced self and role at [facility]. Patient lying in bed, alert and oriented. Patient willing to participate in assessment and is able to answer all questions appropriately. Care providers, pharmacy, and demographics verified. Patient wishes to discharge home, denies need for home health at this time. Patient states she has no further needs or concerns at this time. CM to follow for discharge planning needs that may arise. PCP: Monserrat Specialists: Dominguez, calender worker helper; Vivi, oncologist; rochelle, surgeon Preferred Pharmacy: [facility] Insurance: [employer] [facility] Prescription Benefit: yes Living Will/HPOA: yes, Davidson Galdino LNOK: , son Living Arrangements: Patient lives with in a single story home with 2 steps and railing to enter the home. Patient is independent at home. Transportation: self, DME/HHC: Patient has shower chair, raised toilet, grab bars, and walker at home. No previous HHC or SNF Disposition Plan: Patient to discharge home with family support and follow-up plans in place. Carlene WILLSONN, RN, CM
--- NOTE | 2023-04-17 15:05 | CHAPLAIN ---
Type of Pastoral Visit _x__ Initial Visit ___ Follow-up Visit ___ On-call Visit ___ General Patient Visit ___ Spiritual Assessment ___ Family Conference ___ Bereavement ___ Rapid Response ___ Code Blue ___ Other (describe below) Pastoral Care Referral From _x__ Patient ___ Family ___ Nurse ___ Physician ___ Recreation Assistant ___ Manager Of Selection And Assessment ___ Other (describe below) Sacrament/Intervention _x__ Active listening ___ Anointing ___ Mormonism ___ Bereavement ___ Communion _x__ Rin exploration ___ _x__ Life review _x__ Prayer ___ Reconciliation ___ Sacrament of Sick _x__ Supportive presence ___ Wedding ___ Other (describe below) Pastoral Comments patient is waiting on test results and consultation with ; pt expects to go home today and believes she is better; pt admits that she needs to be more prompt in seeking medical care; pt still works limited hours and enjoys her job; pt spouse is with her in the room for support; pt welcomes spiritual care support and prayer;
[2023-04-17] MEDS: 0.9% Saline Lock 10 ML Syringe IV (16:38)
--- NOTE | 2023-04-17 19:03 | DCINST_ITS ---
Discharge Instructions Diet Discharge Diet: Low fat / Low cholesterol Activity Discharge Activity: Return to Normal Activity Dressing / Incision Call your doctor if you observe: Fever of 101 or Higher, Shortness of breath, Dizziness, Fainting spells, Swelling in the ankles, Chest pain and Increased palpitations (irregular heartbeat) Follow Up Care Test Results: Test results from this visit will be discussed in further detail at your follow- up appointment, if applicable. Discharge Plan Admission Admit Date/Time: 04/16/23 14:56 Attending Provider: Chuy Jackson Primary Care Provider: Dillan German Consulting Providers: Jose E Gutierrez Discharge Orders/Prescriptions Prescriptions: New clopidogrel 75 mg Tablet 75 mg PO DAILY 30 Days Qty: 30 0RF Rx Instructions: Take aspirin and Plavix for 3 weeks and then discontinue the aspirin Continued Centrum Silver 0.4 mg-300 mcg- 250 mcg tablet 1 tab PO DAILY calcium citrate-vitamin D3 [Citracal Regular] 250 mg-5 mcg (200 unit) tablet 1 tab PO DAILY Itzel 128 2 % drops 1 drp ophthalmic (eye) DAILY PRN PRN (Reason: Dry Eyes) hydrochlorothiazide 12.5 mg capsule 12.5 mg PO DAILY Patient Comments: TAKE 1 CAPSULE BY MOUTH ONCE DAILY loratadine 10 mg tablet 10 mg PO DAILY PRN (Reason: allergy symptoms) Devil's claw 1 cap PO DAILY PRN PRN (Reason: Pain) diphenoxylate-atropine [Lomotil] 2.5-0.025 mg tablet 1 tab PO 4X/DAY PRN (Reason: diarrhea) sertraline [Zoloft] 50 MG tablet 50 mg PO DAILY cyclosporine 0.05 % dropperette 1 drp EACH EYE BID Rx Instructions: Restasis atorvastatin 40 mg tablet 40 mg PO QHS Qty: 90 3RF amlodipine [Norvasc] 2.5 mg tablet 2.5 mg PO DAILY Qty: 90 3RF metoprolol succinate 25 mg tablet extended release 24 hr 25 mg PO DAILY Qty: 90 3RF Referrals / Follow Up: Dillan German MD [Primary Care Provider] - Within 1 Week Disposition Disposition (needs filled in before D/C Order can be placed): Home, Self Care
--- NOTE | 2023-04-17 19:06 | DS.PCM_ITS ---
Providers Date of Admission: 04/16/23 Primary Care Physician: Dr. Dillan German MD Reason For Visit: CVA Diagnosis Discharge Diagnosis (1) Facial paresthesia: Status: Acute Code(s): R20.2 - Paresthesia of skin (2) Elevated troponin: Status: Acute Code(s): R77.8 - Other specified abnormalities of plasma proteins Medications at Discharge Home Medications sertraline 50 mg tablet (Zoloft) 50 mg PO DAILY DEPRESSION 12/28/17 calcium citrate 250 mg calcium-vitamin D3 5 mcg (200 unit) tablet (Citracal Regular) 1 tab PO DAILY 03/08/22 cyclosporine 0.05 % eye drops in a dropperette 1 drp EACH EYE BID 03/08/22 quaqgvoc-elk-faahc acid 0.4 mg-lycopene 300 mcg-lutein 250 mcg tablet (Centrum Silver) 1 tab PO DAILY 03/08/22 sodium chloride 2 % eye drops (Itzel 128) 1 drp ophthalmic (eye) DAILY PRN PRN Dry Eyes 03/08/22 hydrochlorothiazide 12.5 mg capsule 12.5 mg PO DAILY 05/20/22 amlodipine 2.5 mg tablet (Norvasc) 2.5 mg PO DAILY #90 tabs 07/27/22 atorvastatin 40 mg tablet 40 mg PO QHS #90 tabs 07/27/22 metoprolol succinate 25 mg tablet,extended release 24 hr 25 mg PO DAILY #90 tabs 07/27/22 Devil's claw 1 cap PO DAILY PRN PRN Pain 12/01/22 diphenoxylate-atropine 2.5 mg-0.025 mg tablet (Lomotil) 1 tab PO 4X/DAY PRN diarrhea 12/01/22 loratadine 10 mg tablet 10 mg PO DAILY PRN allergy symptoms 12/01/22 clopidogrel 75 mg tablet 75 mg PO DAILY 30 days #30 tabs 04/17/23 Hospital Course Operations None Procedures 2-D Echocardiogram Summary of Care Provided Minutes Spent on Discharge: 34 Hospital Course: Per HPI: UMA SANTILLAN, is a 82 F who presents with a headache and facial numbness. Over the weekend, particular yesterday, patient started experiencing a frontal headache and then had some left facial numbness. Was also having some back pain extending from her lower back, across her upper shoulders and upper neck. She was concerned and presented to the emergency room. In the emergency room she underwent a head CTA and neck CTA that were unremarkable. In passing, patient also stated that she is having some chest pain but not out of the ordinary of her typical chest pain. Currently chest pain-free. I did do a troponin that came back at 103. With her ongoing facial numbness, headache and elevated troponins, the hospital service was contacted for admission. Hospital Course: 1. Facial paresthesia and left arm paresthesia in the setting of a headache? 82-year-old female with possibly complex migraine presented to the hospital with left face numbness and left arm numbness. This is all resolved. Echo was unremarkable and troponins were stable so no further cardiac work-up was performed. MRI is still pending however I discussed with her that she may need to wait till tomorrow to get the results and she felt that she was good enough to go home. She is expressed understanding of the risk benefits of discharge. I do recommend she follow-up with her PCP in 3 to 5 days, will continue with aspirin and Plavix for 3 weeks and then would recommend discontinuation of the aspirin transition to Plavix otherwise continue her other home medications. It may be valuable to follow-up neuro just an outpatient. 2. History of breast cancer, history of colon cancer, hypertension, hyperlipidemia, coronary artery disease are all chronic medical conditions which complicate her care. Her home medications were continued where appropriate Physical Exam Narrative General: Alert, Oriented x3, Cooperative, No apparent distress HEENT: Atraumatic, PERRLA, EOMI, Normocephalic Oral: Moist Mucosa Neck: Supple, No JVD Lungs: Clear to auscultation, Normal air movement, No rhonchi, No wheeze, No rales Cardiovascular: Regular rate, Regular Rhythm, Normal S1, Normal S2, No murmurs Abdomen: Soft, Non Tender, Non-Distended, No Hepato-splenomegaly Extremities: No edema, Capillary Refill Less than 3 Seconds Skin: No rashes, No breakdown Musculoskeletal: No Tenderness to Palpation of Joints or Extremities Neurological: Cranial nerves II-XII grossly intact, Motor Exam 5/5 strength throughout, Sensory exam intact to light touch and pain Psych/Mental Status: Normal Affect, Appropriate Weight / BMI Weight Weight: 136 lb 0.403 oz Body Mass Index (BMI) 22.6 ABG / Lab / Microbiology Data 04/16/23 11:52 04/16/23 11:52 Laboratory: Laboratory Results - last 24 hr 04/16/23 18:45: Troponin I High Sens 109 H 04/17/23 06:24: Triglycerides 68, Cholesterol 111, LDL Cholesterol 43, VLDL Cholesterol 14, HDL Cholesterol 54 Radiography Diagnostic Testing: Radiology Impression Echocardiogram 04/16/23 15:57 Interpretation Summary The estimated ejection fraction is 65 %. Unable to assess diastolic dysfunction. The left atrium is mildly enlarged. Trivial aortic valve insufficiency. Ordering Physician: Jose E Gutierrez Performed By: Louis Ruiz RCS D/C Instructions Discharge Diet: Low fat / Low cholesterol Call your doctor if you observe: Fever of 101 or Higher, Shortness of breath, Dizziness, Fainting spells, Swelling in the ankles, Chest pain and Increased palpitations (irregular heartbeat) Meaningful Use Info Meaningful Use Diagnoses (Choose all that apply): None applicable Discharge Plan Admission Admit Date/Time: 04/16/23 14:56 Attending Provider: Chuy Jackson Primary Care Provider: Dillan German Consulting Providers: Jose E Gutierrez Discharge Orders/Prescriptions Prescriptions: New clopidogrel 75 mg Tablet 75 mg PO DAILY 30 Days Qty: 30 0RF Rx Instructions: Take aspirin and Plavix for 3 weeks and then discontinue the aspirin Continued Centrum Silver 0.4 mg-300 mcg- 250 mcg tablet 1 tab PO DAILY calcium citrate-vitamin D3 [Citracal Regular] 250 mg-5 mcg (200 unit) tablet 1 tab PO DAILY Itzel 128 2 % drops 1 drp ophthalmic (eye) DAILY PRN PRN (Reason: Dry Eyes) hydrochlorothiazide 12.5 mg capsule 12.5 mg PO DAILY Patient Comments: TAKE 1 CAPSULE BY MOUTH ONCE DAILY loratadine 10 mg tablet 10 mg PO DAILY PRN (Reason: allergy symptoms) Devil's claw 1 cap PO DAILY PRN PRN (Reason: Pain) diphenoxylate-atropine [Lomotil] 2.5-0.025 mg tablet 1 tab PO 4X/DAY PRN (Reason: diarrhea) sertraline [Zoloft] 50 MG tablet 50 mg PO DAILY cyclosporine 0.05 % dropperette 1 drp EACH EYE BID Rx Instructions: Restasis atorvastatin 40 mg tablet 40 mg PO QHS Qty: 90 3RF amlodipine [Norvasc] 2.5 mg tablet 2.5 mg PO DAILY Qty: 90 3RF metoprolol succinate 25 mg tablet extended release 24 hr 25 mg PO DAILY Qty: 90 3RF Referrals / Follow Up: Dillan German MD [Primary Care Provider] - Within 1 Week Disposition Disposition (needs filled in before D/C Order can be placed): Home, Self Care Charges/Coding Visit Charges Inpatient E&M: 09692 Disch Hosp >30min
--- NOTE | 2023-04-17 21:23 | NURSING ---
Reviewed with Dr Jackson if will call with mri results states will call in am with the report. Informed the patient. IV removed. Tele removed. Primary nurse reviewed new prescription and reviewed discharge instructions.
== END 2023-04-17 21:28 | disposition home or self-care (01) | DRG 103 ==
LOC: ED 15:06 → PCU 15:08
PROVIDERS: Emergency Provider Emergency Medicine; PCP Family Medicine; Visit Provider Family Medicine
DX: G43.909 Migraine, unspecified, not intractable, without status migrainosus (principal); E78.5 Hyperlipidemia, unspecified; I65.21 Occlusion and stenosis of right carotid artery; I45.10 Unspecified right bundle-branch block; I10 Essential (primary) hypertension; M54.50 Low back pain, unspecified; I25.10 Atherosclerotic heart disease of native coronary artery without angina pectoris; Z66 Do not resuscitate; R77.8 Other specified abnormalities of plasma proteins; Z87.891 Personal history of nicotine dependence; R20.2 Paresthesia of skin; Z79.82 Long term (current) use of aspirin; Z79.02 Long term (current) use of antithrombotics/antiplatelets; Z85.3 Personal history of malignant neoplasm of breast; Z85.038 Personal history of other malignant neoplasm of large intestine
CPT/HCPCS: 36415; 70496; 70498; 70551; 71045; 80048; 80061; 81001; 84484; 85025; 93005; 93306; 94762; 97161; 97165; 99284; Q9957; Q9967; A4216; C8929

== ENCOUNTER 2023-04-18 09:27 | Emergency (ER) | payer MEDICARE, SELFPAY ==
[2023-04-18 09:30] VITALS: BP 188/90; PULSE 69; RESP 16; TEMP 36.6; TEMP 36.7; O2SAT 99; BMI 22.3
[2023-04-18 09:31] VITALS: BP 188/90; PULSE 69; RESP 16; TEMP 36.6; O2SAT 99
--- NOTE | 2023-04-18 09:31 | CT_ITS ---
INDICATION: Neuro deficit, acute, stroke suspected EXAMINATION: CT BRAIN - CT Head Stroke Protocol W/O Contrast Injection TECHNIQUE: Multiple axial images were obtained of the head without intravenous contrast. A radiation dose optimization technique was used for this scan. IV Contrast dosage and agent: None. RADIATION DOSAGE (If Supplied By Facility): CTDIvol = ( ) mGy, DLP = ( ) mGycm COMPARISON: 04/16/2023 FINDINGS: BRAIN PARENCHYMA: No intra- or extra-axial hemorrhage. No evidence of acute infarct. No intracranial mass or mass effect. There is preservation of the womack/white matter interface. Posterior fossa structures are unremarkable. CSF SPACES: Appropriate for age. No hydrocephalus. Basal cisterns are patent. CALVARIUM, SKULL BASE, PARANASAL SINUSES AND MASTOID AIR CELLS: Clear. No discrete lytic or blastic abnormalities. ORBITS: Both globes, extraocular muscles, optic nerves and retrobulbar fat appear unremarkable. ASPECTS Score for Acute Strokes: 10 CT/STROKE Brain/Head without Cont IMPRESSION: No acute intracranial hemorrhage or mass effect. N.B. : The above Results were Read Back by Tone Sutherland (Brooks) to Jose E Taylor MD, and understanding confirmed on 04/18/2023 09:45:40 (ET). Electronically Signed: Tone Sutherland (Brooks), at 9:47 EDT Reading Location ID and State: [facility] / [place] , Service support ,
--- NOTE | 2023-04-18 09:31 | EKG12_ITS ---
Test Reason : NEURO Blood Pressure : / mmHG Vent. Rate : 058 BPM Atrial Rate : 058 BPM P-R Int : 152 ms QRS Dur : 146 ms QT Int : 476 ms P-R-T Axes : 059 -54 093 degrees QTc Int : 467 ms Sinus bradycardia Right bundle branch block Left anterior fascicular block Bifascicular block Left ventricular hypertrophy with repolarization abnormality ( R in aVL , Romhilt-Roth ) Cannot rule out Septal infarct , age undetermined Lateral infarct , age undetermined Abnormal ECG Confirmed by TC DUNHAM, JEROMY ([id number]), senior technical editor YANA PEREIRA ([id number]) on 04/19/2023 11:04:02 AM Referred By: Confirmed By:JEROMY MONTEZ MD
--- NOTE | 2023-04-18 09:32 | EDS_ITS ---
HPI History of Present Illness Chief Complaint: Stroke Alert Informant: patient Onset/Context/Timing Onset: Today Context: Sudden Onset Timing: Continuous Quality and Location: Positive for Left Face Parasthesia Worsened by: Nothing Relieved by: Nothing Associated Symptoms Associated Symptoms: Positive for Headache; Negative for Nausea, Vomiting or Chest Pain Narrative Narrative: Patient presents with left facial tingling and weakness that began today around 7 AM. Patient states she woke up and when she rolled onto the left side of her face she felt that the left side of her face was tingling. Patient states she noted the tingling and weakness of the left side of her face around 7 AM. Patient was seen and admitted recently for stroke evaluation with similar symptoms. Patient was discharged from the hospital last night around 10 PM and went to bed around 11 PM. This was her last known well. [facility] Medical History Abnormal ECG Abnormal serum enzyme level Alcohol use Anemia Anxiety and depression Arthritis Back pain Blackout Cancer Cancer Cardiology follow-up encounter Chronic cholecystitis Colitis Colon cancer DDD (degenerative disc disease), cervical Depression Essential hypertension Former smoker Genetic predisposition to cancer Hemorrhoids High cholesterol History of breast cancer History of colitis History of diverticulitis History of echocardiogram History of irregular heartbeat History of left breast cancer HLD (hyperlipidemia) Hypertension Injury of back Injury of head and neck Normal stress echocardiogram Osteoporosis Pancreatitis Post-menopausal Right bundle branch block (RBBB) Screen for colon cancer Syncope Thyroid nodule Vasovagal syncope Wears dentures Wears glasses Wears hearing aid Home Medications sertraline 50 mg tablet (Zoloft) 50 mg PO DAILY DEPRESSION 12/28/17 [History Last Taken 02/21/22] calcium citrate 250 mg calcium-vitamin D3 5 mcg (200 unit) tablet (Citracal Regular) 1 tab PO DAILY 03/08/22 [History Last Taken Unknown] cyclosporine 0.05 % eye drops in a dropperette 1 drp EACH EYE BID 03/08/22 [H istory Last Taken Unknown] aqdfbexs-yzx-uxldz acid 0.4 mg-lycopene 300 mcg-lutein 250 mcg tablet (Centrum Silver) 1 tab PO DAILY 03/08/22 [History Last Taken Unknown] sodium chloride 2 % eye drops (Itzel 128) 1 drp ophthalmic (eye) DAILY PRN PRN Dry Eyes 03/08/22 [History Last Taken Unknown] hydrochlorothiazide 12.5 mg capsule 12.5 mg PO DAILY 05/20/22 [History Last Taken Unknown] amlodipine 2.5 mg tablet (Norvasc) 2.5 mg PO DAILY #90 tabs 07/27/22 [Rx Last Taken 03/28/23] atorvastatin 40 mg tablet 40 mg PO QHS #90 tabs 07/27/22 [Rx Last Taken Unknown] metoprolol succinate 25 mg tablet,extended release 24 hr 25 mg PO DAILY #90 tabs 07/27/22 [Rx Last Taken 03/28/23] Devil's claw 1 cap PO DAILY PRN PRN Pain 12/01/22 [History Last Taken Unknown] diphenoxylate-atropine 2.5 mg-0.025 mg tablet (Lomotil) 1 tab PO 4X/DAY PRN diarrhea 12/01/22 [History Last Taken Unknown] loratadine 10 mg tablet 10 mg PO DAILY PRN allergy symptoms 12/01/22 [History Last Taken Unknown] clopidogrel 75 mg tablet 75 mg PO DAILY 30 days #30 tabs 04/17/23 [Rx Last Taken Unknown] Allergy/AdvReac Type Severity Reaction Status Date / Time ciprofloxacin [From Cipro] Allergy Mild hives Verified 04/18/23 09:29 mesalamine Allergy Mild Hives Verified 04/18/23 09:29 alendronate sodium Allergy Unknown Diarrhea Verified 04/18/23 09:29 [From Fosamax] povidone-iodine Allergy Rash Verified 04/18/23 09:29 [From Betagen (povidone-iodine)] latex AdvReac Hives Verified 04/18/23 09:29 pneumococcal vaccine AdvReac Other Verified 04/18/23 09:29 Family History Mother Hypertension CVA (cerebral vascular accident) Sister Hypertension Father CVA (cerebral vascular accident) Other Alcohol abuse Anxiety Depression H/O ulcer disease Psychiatric care Surgical History History of cardiac catheterization (10/23/14) History of left heart catheterization (LHC) (~07/27/22) History of mastectomy History of right hemicolectomy (02/21/22) Hx of appendectomy Hx of bilateral cataract extraction Hx of colonoscopy Hx of left mastectomy S/P colonoscopy S/P laparoscopic cholecystectomy (~01/03/18) S/P lumpectomy of breast Social History household members: spouse Smoking Status: Former smoker how long ago did patient quit smoking: started in high school, quit in 1977; smoked a pack a month, sometimes more alcohol intake: current alcohol intake frequency: a few times a month Alcohol type: wine substance use type: does not use diet: other ROS ROS ED Constitutional Constitutional ED: Denies chills or fever(s) Eyes Eyes: Denies blurry vision or change in vision ENT ENT ED: Denies rhinorrhea or sore throat Cardiovascular Cardiovascular: Denies chest pain or palpitations Respiratory/Chest Respiratory/Chest: Denies cough or dyspnea Gastrointestinal Gastrointestinal: Denies nausea or vomiting Genitourinary Genitourinary ED: Denies dysuria or hematuria Musculoskeletal Musculoskeletal: Denies back pain or neck pain Integumentary Denies abscess or rash Neurologic Neurologic: Denies headache(s) or weakness Allergic/Immunologic Allergic/Immunologic ED: Denies mouth swelling or urticaria EXAM Physical Exam Const Vital Signs: 04/18/23 09:30 04/18/23 09:52 04/18/23 09:52 Temperature 98 F Temperature Source Temporal Pulse Rate 69 70 Respiratory Rate 16 17 Blood Pressure 188/90 H 183/87 H Blood Pressure Mean 122 119 Pulse Ox 99 99 95 Oxygen Delivery Method Room Air Room Air Room Air 04/18/23 09:31 04/18/23 09:30 04/18/23 10:01 Temperature 98 F 98.0 F Temperature Source Temporal Temporal Pulse Rate 69 69 60 Respiratory Rate 16 16 20 H Blood Pressure 188/90 H 188/90 H 189/75 H Blood Pressure Mean 122 122 113 Pulse Ox 99 99 96 Oxygen Delivery Method Room Air Room Air Room Air 04/18/23 10:29 Temperature Temperature Source Pulse Rate 59 L Respiratory Rate 14 Blood Pressure 189/75 H Blood Pressure Mean 113 Pulse Ox 96 Oxygen Delivery Method Room Air Positive well nourished and well developed General Appearance ED: well developed and NAD HEENT Reports moist mucous membranes Neck supple and no JVD Resp normal respiratory effort and clear to auscultation bilaterally Cardio regular rate, regular rhythm and no murmurs GI normal to inspection, nondistended, normoactive bowel sounds and non-tender Palpation: soft Extremity normal to inspection General Extremety ED: Negative for edema or tenderness General Extremity: Negative for edema Neuro oriented x3 and CN's II-XII intact bilaterally Neuro Narrative: There is slight decrease sensation to light touch over the left cheek over the V2 distribution. Sensorium / Orientation: alert Speech: speech normal Motor Exam: strength 5/5 throughout Psych mental status grossly normal Skin no rashes or lesions noted NIHSS NIHSS Initial: 1a Level of Consciousness: 0 1b LOC Questions (Score 2 if aphasic/stupor): 0 1c LOC Commands (Only score 1st attempt): 0 2 Best Gaze (If aphasic, use reflexive mvmts.): 0 3 Visual: 0 4 Facial Palsy: 0 5 Motor Arm Right (UN = amputation/fusion): 0 5 Motor Arm Left: 0 6 Motor Leg Right: 0 6 Motor Leg Left: 0 7 Limb ataxia (Only + if out of proportion): 0 8 Sensory (Aphasia/stupor=0 or 1, coma=2): 1 9 Best Language: 0 10 Dysarthria (mute, coma=2, intubated=UN): 0 11 Extinction and Inattention (only scored if +): 0 Total Score: 1 MDM MDM MDM Narrative Medical decision making narrative: Triage stroke alert was called. Differential diagnosis includes stroke, intracranial bleeding, Eller's palsy, cardiac dysrhythmia, and cardiac ischemia. CT scan of the brain will be obtained to assess for stroke and intracranial bleeding. CTA of the head and neck will be obtained to assess for cerebral aneurysm, bleeding, large vessel occlusion, and arterial stenosis. EKG will be obtained to assess for cardiac dysrhythmia and cardiac ischemia. CBC will be obtained to assess for leukocytosis and anemia. Basic metabolic profile will be obtained to assess for electrolyte abnormality and renal function. PT with INR and PTT will be obtained to assess for coagulopathy. Chest x-ray will be obtained to assess for pneumonia and congestive heart failure. He History & Record Review Additional record(s) reviewed:: Prior labs Lab Data Attestation: I reviewed the patient's lab results. Lab results narrative: CBC was reviewed and was within normal limits. PT was INR and PTT were reviewed and were essentially within normal limits. Basic metabolic profile was reviewed. Sodium was slightly low at 135. The remainder was within normal limits. High-sensitivity troponin was reviewed and was elevated at 97. However, this is trending down from previously elevated troponins during previous hospitalization yesterday. Labs: Laboratory Results - last 24 hr 04/18/23 09:55 WBC 4.6 RBC 4.01 L Hgb 12.5 Hct 38.7 MCV 96.5 MCH 31.2 MCHC 32.3 RDW Std Deviation 44.7 H RDW Coeff of Michelle 12.5 Plt Count 156 MPV 9.7 Immature Gran % (Auto) 0.200 Neut % (Auto) 68.5 Lymph % (Auto) 20.7 [place] % (Auto) 6.7 Eos % (Auto) 2.8 Baso % (Auto) 1.1 H Absolute Neuts (auto) 3.2 Absolute Lymphs (auto) 0.96 Nucleated RBC % 0 PT 13.8 INR 1.1 APTT 44.2 H Sodium 135 L Potassium 3.9 Chloride 104 Carbon Dioxide 31.0 Anion Gap 0 L BUN 15 Creatinine 0.68 Estim Creat Clear Calc 40.38 Est GFR (MDRD) Af Amer 107 Est GFR (MDRD) Non-Af 88 BUN/Creatinine Ratio 22.0 H Glucose 89 Calcium 8.9 Troponin I High Sens 97 H Radiography Diagnostic Testing: Clinical Impression(s) from Imaging Studies Brain CT 04/18/23 09:31 IMPRESSION: No acute intracranial hemorrhage or mass effect. N.B. : The above Results were Read Back by Tone Sutherland (Brooks) to Jose E Taylor MD, and understanding confirmed on 04/18/2023 09:45:40 (ET). Electronically Signed: Tone Sutherland (Brooks), at 9:47 EDT , ADDENDUM: 04/18/23 0954 IMPRESSION: No acute intracranial hemorrhage or mass effect. N.B. : The above Results were Read Back by Tone Sutherland (Brooks) to Jose E Taylor MD, and understanding confirmed on 04/18/2023 09:45:40 (ET). Electronically Signed: Tone Sutherland (Brooks), at 9:47 EDT , Head/Neck CTA 04/18/23 09:32 IMPRESSION: Negative CTA carotid and CTA brain. N.B. : Jose E Taylor MD, confirmed on 04/18/2023 10:06:54 (ET) that the referring physician received the results and does not require a verbal communication. Electronically Signed: Tone Sutherland (Brooks), at 10:11 EDT , ADDENDUM: 04/18/23 1018 IMPRESSION: Negative CTA carotid and CTA brain. N.B. : Jose E Taylor MD, confirmed on 04/18/2023 10:06:54 (ET) that the referring physician received the results and does not require a verbal communication. Electronically Signed: Tone Sutherland (Brooks), at 10:11 EDT , Chest X-Ray 04/18/23 10:30 IMPRESSION: Nonacute portable x-ray examination of the chest. Electronically Signed: Tone Sutherland (Brooks), at 11:05 EDT , CT scan of the brain was obtained. There is no acute intracranial abnormality. This was interpreted by the radiologist and was also independently reviewed by myself. CTA of the head and neck was obtained. There is no acute abnormality. There is no large vessel occlusion noted. There is no aneurysm noted. This was inte rpreted by the radiologist and was also independently reviewed by myself. Portable 1 view chest x-ray was obtained. On my independent interpretation, lung hancock are clear. There is normal cardiac silhouette. Bony thorax is normal. There is no acute process noted. Radiologist also interpreted the x- ray and agrees. EKG Initial EKG: Attestation: I personally reviewed and interpreted this EKG as follows: Interpretation: Sinus Bradycardia (58), RBBB and LAFB Comments: EKG was obtained. On my independent interpretation, shows sinus bradycardia with a rate of 58. DC interval was normal at 152 ms. QRS interval was slightly prolonged at 146 ms. QTc interval was 467 ms. There is left axis deviation at -54. There is left ventricular hypertrophy with repolarization abnormality. There are no acute ST or T wave changes noted. This was unchanged compared to previous EKG dated 02/18/2022. Prior EKG tracings: available for review Prior: Unchanged (02/18/2022) Management Discussion w/another healthcare provider: Hospitalist and Courtroom Deputy (Dr. Haynes, stroke neurologist at [facility]) Treatment and Re-Evaluation Narrative: Stroke neurologist, Dr. Haynes was contacted. Since this was actually a wake-up stroke and her NIH is 1, patient is not a candidate for thrombolytics at this time. Patient was advised of her findings. Patient states she did have a brief episode of chest pain that only lasted for couple seconds. Currently, patient denies any pain. Patient states her tingling is improving. There is no weakness noted. Patient was advised of her MRI results from yesterday. Since the patient was recently admitted for a stroke work-up which was all negative, I do not feel the patient needs to be readmitted at this time. Patient was instructed to continue her Plavix and aspirin as previously prescribed. Patient was instructed to follow-up with her primary care physician in 5 to 7 days. Patient understood and was agreeable with the plan. All questions were answered. Stroke Documentation Questions Stroke Team Activated: Yes Reviewed Inclusion/Exclusion criteria: Yes Was Patient considered for Endovascular Intervention?: No-CTA negative, determined not to be an endovascular candidate IV Thrombolytic Administered: No No contraindications from thrombolytic administration: No Discharge Plan Triage Chief Complaint: Stroke Alert ED Provider: Jose E Taylor Dx/Rx/DC Orders Clinical Impression: Facial paresthesia Instructions: ED Paraesthesias Prescriptions: No Action Centrum Silver 0.4 mg-300 mcg- 250 mcg tablet 1 tab PO DAILY calcium citrate-vitamin D3 [Citracal Regular] 250 mg-5 mcg (200 unit) tablet 1 tab PO DAILY Itzel 128 2 % drops 1 drp ophthalmic (eye) DAILY PRN PRN (Reason: Dry Eyes) hydrochlorothiazide 12.5 mg capsule 12.5 mg PO DAILY Patient Comments: TAKE 1 CAPSULE BY MOUTH ONCE DAILY loratadine 10 mg tablet 10 mg PO DAILY PRN (Reason: allergy symptoms) Devil's claw 1 cap PO DAILY PRN PRN (Reason: Pain) diphenoxylate-atropine [Lomotil] 2.5-0.025 mg tablet 1 tab PO 4X/DAY PRN (Reason: diarrhea) sertraline [Zoloft] 50 MG tablet 50 mg PO DAILY cyclosporine 0.05 % dropperette 1 drp EACH EYE BID Rx Instructions: Restasis clopidogrel 75 mg Tablet 75 mg PO DAILY 30 Days Qty: 30 0RF Rx Instructions: Take aspirin and Plavix for 3 weeks and then discontinue the aspirin atorvastatin 40 mg tablet 40 mg PO QHS Qty: 90 3RF amlodipine [Norvasc] 2.5 mg tablet 2.5 mg PO DAILY Qty: 90 3RF metoprolol succinate 25 mg tablet extended release 24 hr 25 mg PO DAILY Qty: 90 3RF Primary Care Provider: Dillan German Referrals: Dillan German MD [Primary Care Provider] - 3-5 Days Disposition Disposition: Home, Self Care
--- NOTE | 2023-04-18 09:32 | CT_ITS ---
EXAM: CT ANGIOGRAPHY HEAD AND NECK WITH INTRAVENOUS CONTRAST CLINICAL INDICATION: Neuro deficit, acute, stroke suspected TECHNIQUE: [place]/head and neck CT angiography protocol performed with intravenous contrast. This CT exam was performed using one or more of the following dose reduction techniques: automated exposure control, adjustment of the mA and/or kV according to patient size, and/or use of iterative reconstruction technique. MIP reconstructed images were created and reviewed. CONTRAST: IV 100mL Isovue-370 RADIATION DOSE: CTDIvol = 22.42 mGy, DLP = 653.39 mGy-cm COMPARISON: 04/16/2023. FINDINGS: HEAD: RIGHT ANTERIOR CEREBRAL ARTERY: Unremarkable. No significant stenosis at the visualized segments. Anterior communicating artery is present. No aneurysm. RIGHT MIDDLE CEREBRAL ARTERY: Unremarkable. No significant stenosis at the visualized segments. No aneurysm. RIGHT POSTERIOR CEREBRAL ARTERY: Unremarkable. No occlusion or significant stenosis. No aneurysm. RIGHT INTRACRANIAL INTERNAL CAROTID ARTERY: Unremarkable. No significant stenosis. No dissection or occlusion. RIGHT INTRACRANIAL VERTEBRAL ARTERY: Unremarkable. No significant stenosis. No dissection or occlusion. LEFT ANTERIOR CEREBRAL ARTERY: Unremarkable. No significant stenosis at the visualized segments. No aneurysm. LEFT MIDDLE CEREBRAL ARTERY: Unremarkable. No significant stenosis at the visualized segments. No aneurysm. LEFT POSTERIOR CEREBRAL ARTERY: Unremarkable. No occlusion or significant stenosis. No aneurysm. LEFT INTRACRANIAL INTERNAL CAROTID ARTERY: Unremarkable. No significant stenosis. No dissection or occlusion. LEFT INTRACRANIAL VERTEBRAL ARTERY: Unremarkable. No significant stenosis. No dissection or occlusion. BASILAR ARTERY: Unremarkable. No significant stenosis. No aneurysm. OTHER VASCULATURE: No vascular malformation. NECK: RIGHT COMMON CAROTID ARTERY: Unremarkable. No significant stenosis. No dissection or occlusion. RIGHT EXTRACRANIAL INTERNAL CAROTID ARTERY: Mild atherosclerosis (10% stenosis). No significant stenosis. No dissection or occlusion. RIGHT EXTERNAL CAROTID ARTERY: Unremarkable. No occlusion. RIGHT EXTRACRANIAL VERTEBRAL ARTERY: Unremarkable. No significant stenosis. No dissection or occlusion. LEFT COMMON CAROTID ARTERY: Unremarkable. No significant stenosis. No dissection or occlusion. LEFT EXTRACRANIAL INTERNAL CAROTID ARTERY: Unremarkable. No significant stenosis. No dissection or occlusion. LEFT EXTERNAL CAROTID ARTERY: Unremarkable. No occlusion. LEFT EXTRACRANIAL VERTEBRAL ARTERY: Unremarkable. No significant stenosis. No dissection or occlusion. BRACHIOCEPHALIC AND SUBCLAVIAN ARTERIES: Mild atherosclerosis. No occlusion or significant stenosis. LUNG APICES: Unremarkable as visualized. HEAD and NECK: BONES/JOINTS: Unremarkable. No discrete lytic or blastic abnormalities. SOFT TISSUES: Bilateral thyroid nodules measure up to 1.1 cm. ACR White Paper guidelines (Gordon JK, et al. JACR 2015;12(2):143-50) suggest no follow-up is necessary. CAROTID STENOSIS REFERENCE USING NASCET CRITERIA: % ICA stenosis = (1 - narrowest ICA diameter/diameter of distal cervical ICA) x 100. Mild - <50% stenosis. Moderate - 50-69% stenosis. Severe - 70-94% stenosis. Near occlusion - 95-99% stenosis. Occluded - 100% stenosis. CT/STROKE CTA Head AND Neck W/Con IMPRESSION: Negative CTA carotid and CTA brain. N.B. : Jose E Taylor MD, confirmed on 04/18/2023 10:06:54 (ET) that the referring physician received the results and does not require a verbal communication. Electronically Signed: Tone Sutherland (Brooks), at 10:11 EDT ,
[2023-04-18 09:52] VITALS: BP 183/87; PULSE 70; RESP 17; O2SAT 95; O2SAT 99
[2023-04-18 09:59] VITALS: BMI 22.3
[2023-04-18 10:01] VITALS: BP 189/75; PULSE 60; RESP 20; O2SAT 96
[2023-04-18 10:08] LABS: Absolute Lymphocyte Count 0.96 X10^3/uL (0.83-4.51); Absolute Neutrophil Count 3.2 X10^3/uL (2.0-7.7); Basophil# 0.05 X10^3/uL; Basophil% 1.1 % (0-1); Eosinophil# 0.13 X10^3/uL; Eosinophils% 2.8 % (0-5); Hematocrit 38.7 % (37-47); Hemoglobin 12.5 g/dL (12.0-15.0); Lymphocyte # 0.96 X10^3/ul (0.83-4.51); Lymphocyte % 20.7 % (19-41); Mean Corp Hgb Conc 32.3 g/dL (32-36); Mean Corpuscular Hgb 31.2 pg (27.0-32.0); Mean Corpuscular Volume 96.5 fL (81-99); Mean Platelet Vol. 9.7 fl (6.2-12.0); Monocyte# 0.31 X10^3/uL; Monocyte% 6.7 % (0-10); NRBC Flagged by Analyzer 0 % (0-5); Neutrophil # 3.18 X10^3/uL (2.7-7.7); Neutrophil % 68.5 % (47-70); Platelet Count 156 K/mm3 (150-450); RBC Distribution Width CV 12.5 % (11.6-14.6); RBC Distribution Width SD 44.7 fl (35.1-43.9); Red Blood Count 4.01 M/mm3 (4.2-5.4); White Blood Count 4.6 K/mm3 (4.4-11.0)
[2023-04-18 10:17] LABS: International Normalized Ratio 1.1; Partial Thromboplast Time 44.2 Seconds (24.1-36.2); Prothrombin Time (Protime)PT. 13.8 SECONDS (11.7-14.9)
--- NOTE | 2023-04-18 10:22 | ED.RN ---
PER DR. SHER, WE CAN CANCEL [facility]
--- NOTE | 2023-04-18 10:23 | ED.RN ---
CALL TO [facility] AT 1000 TO NOTIFY THEM THAT PATIENT WAS BACK IN THE ROOM. [facility] CALLS THIS RN BACK AND STATES THEY DID NOT GET A FIRST CALL. THIS RN APOLOGIZES AND GIVES THEM ALL STROKE/ PATIENT INFORMATION. [facility] IMMEDIATELY PUTS THEIR NEUROLOGIST ON THE PHONE TO SPEAK WITH THE ED DOC, . WHEN PATIENT CAME INTO TRIAGE, MULTIPLE SITUATIONS WERE BEING HANDLED AT ONE TIME SO CONCISE COMMUNICATION ABOUT THE FIRST CALL WAS NOT CLEAR. THIS RN WAS THE PRIMARY NURSE FOR THE PATIENT, WELL THE DEPARTMENT CHARGE TAKING PT TO CT
[2023-04-18 10:25] LABS: Anion Gap 0 (5-15); BUN 15 mg/dL (7-18); Calcium,Total 8.9 mg/dL (8.5-10.1); Chloride 104 mmol/L (98-107); Creatinine, Serum 0.68 mg/dL (0.55-1.02); EST Glomerular Filtration Rate 88 mL/min (>60); Est Glom Filt Rate - Afr Amer 107 mL/min (>60); Estimated Creatinine Clearance 40.38 ml/min; Glucose 89 mg/dL (74-106); Potassium 3.9 mmol/L (3.5-5.1); Sodium Level 135 mmol/L (136-145); Troponin-I HS 97 pg/mL (3.0-54.0)
[2023-04-18 10:29] VITALS: BP 189/75; PULSE 59; RESP 14; O2SAT 96
--- NOTE | 2023-04-18 10:30 | RAD_ITS ---
STUDY: X-RAY CHEST REASON FOR EXAM: Female, 82 years old. Neuro deficit, acute, stroke suspected TECHNIQUE: AP COMPARISON: 04/16/2023 FINDINGS: EKG leads project over the chest. Surgical clips overlie the left chest. There is no demonstrated pleural abnormality. Normal size heart. Normal mediastinum and mike. Normal visualized pulmonary arteries. There is atherosclerotic calcification of the aortic arch with tortuosity. Normal visualized thoracic spine. Normal visualized ribs, clavicles, and shoulders. There is no demonstrated abnormality of the visualized soft tissue structures of the upper abdomen. RAD/Chest 1 View IMPRESSION: Nonacute portable x-ray examination of the chest. Electronically Signed: Tone Sutherland (Brooks), at 11:05 EDT ,
[2023-04-18 11:00] VITALS: BP 152/67; PULSE 59; RESP 13; O2SAT 99
[2023-04-22 06:36] LABS: Bedside Glucose 99 mg/dL (74-106)
== END 2023-04-18 11:26 | disposition home or self-care (01) ==
PROVIDERS: Emergency Provider Emergency Medicine; PCP Family Medicine; Visit Provider Emergency Medicine
DX: R20.2 Paresthesia of skin (principal); Z87.891 Personal history of nicotine dependence; I10 Essential (primary) hypertension; E78.00 Pure hypercholesterolemia, unspecified; F32.A Depression, unspecified; Z79.899 Other long term (current) drug therapy; Z85.038 Personal history of other malignant neoplasm of large intestine; Z79.02 Long term (current) use of antithrombotics/antiplatelets; Z90.49 Acquired absence of other specified parts of digestive tract; Z98.41 Cataract extraction status, right eye; Z98.42 Cataract extraction status, left eye; Z90.12 Acquired absence of left breast and nipple
CPT/HCPCS: 70450; 70496; 70498; 71045; 80048; 82962; 84484; 85025; 85610; 85730; 93005; 99285; Q9967; A4216

== ENCOUNTER → 2023-05-08 | Outpatient (CLI) | payer MEDICARE, SELFPAY ==
--- NOTE | 2023-05-08 10:40 | STRESSREP ---
Stress Test Report Pharmacologic myocardial perfusion stress test. 82-year-old lady with a history of chest pain Resting EKG demonstrates sinus bradycardia with a rate of 58 bpm. Resting blood pressure is 124/78 mmHg. 0.4 mg of regadenoson was infused per usual protocol followed by rapid intravenous saline flush injection. Continuous EKG monitoring was performed. The maximum heart rate was 91 bpm which was 65% of max impacted heart rate the maximum workload was 1 metabolic equivalent. At rest there were no ST or T wave changes noted to suggest ischemia and at peak infusion nonspecific ST changes were noted which did not meet the criteria for ischemia. No clinical angina is noted. The final blood pressure was 120/64 mmHg. Myocardial perfusion protocol. 11.0 mCi of technetium 99m sestamibi was injected at rest. 0.4 mg of regadenoson was infused per usual protocol. At peak infusion 33.3 mCi of technetium 99m sestamibi was injected stress images were obtained stress and rest images were reconstructed and compared in the short axis vertical long and horizontal long axis. Gated images were also obtained. Perfusion SPECT analysis: Review of the stress images demonstrate normal uptake of tracer noted in all areas of the myocardium. The resting images similar demonstrated normal uptake of tracer noted in all areas of the myocardium. No areas of reversibility are noted to suggest ischemia and no previous infarct is noted. Gated SPECT analysis: The gated ejection fraction is 64%. Conclusion: Normal pharmacologic myocardial perfusion stress test. Preserved ejection fraction.
--- NOTE | 2023-05-08 11:45 | RAD_ITS ---
STUDY: X-RAY - CERVICAL SPINE REASON FOR EXAM: Female, 82 years old. Neck pain. TECHNIQUE: 5 view(s) of the cervical spine were obtained. COMPARISON: None FINDINGS: Osteopenia. Normal anterior atlantoaxial articulation. Normal odontoid process. Normal cervical lordosis. Diffuse uncovertebral and facet sclerosis. Intervertebral disc space narrowing most marked at C4-5, C5-6 and C6-7. Anterior bony neural foraminal encroachment at C3-4, C5-6 and C6-7 on the right and C4-5 and C6-7 on the left. Carotid calcification. RAD/Cerv Spine 4 or 5 Views IMPRESSION: Osteopenia with moderate lower cervical spondylosis as described. No acute abnormality or erosive changes. Electronically Signed: Ken Ivey MD at 12:14 EDT ,
== END | disposition home or self-care (01) ==
PROVIDERS: PCP Family Medicine; Referring Provider Family Medicine; Visit Provider Chiropractor
DX: M54.2 Cervicalgia (principal); G45.9 Transient cerebral ischemic attack, unspecified; R07.89 Other chest pain; R77.8 Other specified abnormalities of plasma proteins; I25.10 Atherosclerotic heart disease of native coronary artery without angina pectoris
CPT/HCPCS: 72050; 78452; 93017; A9500; A4216; J2785

== ENCOUNTER 2023-06-29 12:00 | Outpatient (RCR) | payer MEDICARE, SELFPAY ==
--- NOTE | 2023-05-22 15:25 | HP.PTEVAL ---
Patient's Visit Information Visit Information Visit Information: UMA SANTILLAN is a 83 year old F referred to Physical Therapy by Dr. Frandy Gregory MD with a diagnosis of Cervical Spondylosis. Date of Evaluation: 05/22/23 Physical Therapist: Briseyda Horan PT, Cert MDT Visit Plan Frequency: 2-3x /Week Duration: 4 Weeks Plan: POSTURE CORRECTION/STRENGTHENING, INSTRUCTION IN APPROPRIATE BODY MECHANICS AND ACTIVITY MODIFICATIONS. GENTLE NECK AND UPPER BACK STRETCHING AND STRENGTHEING. ISAC UE GENTLE ROM, STRETCHING AND STRENGTHENING. HEP INSTRUCTION. 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 Present symptoms: HEADACHE/PRESSURE. UPPER BACK AND NECK PAIN WITH CERVICAL MUSCLE CRAMPING AND TIGHTNESS. IASC SHLD PAIN. PATIENT DENIES ISAC UE PAIN, NUMBNESS AND TINGLING BUT SHE DOES GET SHARP PAINS IN HER UPPER BACK/SHLD BLADE REGIONS. 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 Symptoms at onset: KINK IN R SHLD BLADE AREA. Worse: TWISTING WHILE REACHING, TRYING TO LIFT, SITTING, WORKING AT COMPUTER. GETS WORSE THE DAY PROGRESSES. WALKING FOR MORE THAN 5 MINUTES Better: TYLONOL, ICE, HEAT, NO PAIN IN THE MORNINGS. Disturbed sleep: NO Previous history/Previous treatment: H/O REGUALR CHIROPRACTIC FOR YEARS UNTIL GOT HELP FROM MASSAGE THERAPIST - HAS BEEN SEEING MASSAGE THERAPIST FOR ABOUT 10 YEARS WITH ONLY OCCASSIONAL CHIROPRACTIC. NO NECK SURGERY. NO JULIANNA'S. NO PAIN MGMT. This episode: MASSAGE THERAPY X 1 WITH TEMPORARY RELIEF. CHIROPRACTIC X 4 WITH TEMPORARY RELIEF. CHECK UP WITH DR. LOPEZ AFTER RELEASE FROM HOSPITAL FOR RECENT TIA ABOUT END OF MARCH/BEGINNING OF APRIL. DR. LOPEZ ORDERED HEART MONITOR AND STRESS TEST AFTER TIA. STILL WEARING HEART MONITOR. HEART MONITOR IS DUE TO COME OFF Monday05/25/23. FOLLOW UP PENDING WITH DR. LOPEZ 05/25/23. Dizziness: NO Tinnitis: NO Nausea: NO Shortness of Breath: NO Difficulty Swollowing: NO Gait: NORMAL Accidents: NO Unexplained weight loss: NO Imaging: RECENT IMAGING FOR TIA AND DR. GREGORY DID RECENT NECK X-RAYS. OTHER: RECENT COLON CANCER ABOUT A YEAR AGO TREATED WITH SURGERY. SEE FURTHER PMH BELOW. CURRENTLY CANCER FREE FAR PATIENT IS AWARE. PMH from [facility] EMR: Abnormal ECG Abnormal serum enzyme level Alcohol use Anemia Anxiety and depression Arthritis Back pain [facility] Cancer Cancer Cardiology follow-up encounter Chronic cholecystitis Colitis Colon cancer DDD (degenerative disc disease), cervical Depression Essential hypertension Former smoker Genetic predisposition to cancer HLD (hyperlipidemia) Hemorrhoids High cholesterol History of breast cancer History of colitis History of diverticulitis History of echocardiogram History of irregular heartbeat History of left breast cancer Hypertension Injury of back Injury of head and neck Normal stress echocardiogram Osteoporosis Pancreatitis Post-menopausal Right bundle branch block (RBBB) Screen for colon cancer Syncope Thyroid nodule Vasovagal syncope Wears dentures Wears glasses Wears hearing aid History of cardiac catheterization 10/23/14 History of left heart catheterization (LHC) ~07/27/22 History of mastectomy History of right hemicolectomy 02/21/22 Hx of appendectomy Hx of bilateral cataract extraction Hx of colonoscopy Hx of left mastectomy S/P colonoscopy S/P laparoscopic cholecystectomy ~01/03/18 S/P lumpectomy of breast Objective Objective: Sitting Posture/Standing Posture: FH. DOWAGERS HUMP. RSH'S L > RIGHT. Active Correction of posture: BETTER Other Observations: INDEP GAIT AND TRANSFERS Sensory deficit: ISAC UE LIGHT TOUCH SENSATION GROSSLY INTACT AND SYMMETRICAL ROM deficit: ISAC UE'S WFL BUT PATIENT C/O UPPER BACK AND NECK PAIN WITH ISAC SHLD ELEVATION. Motor deficit: ISAC UE STRENGTH GROSSLY 4/5 WITH MMT'ING. 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 Dural Signs: POSITIVE ISAC UE'S. Cervical Mvmt Loss: Flex: NIL Pro: NIL Ext: MOD Ret: MOD RSB: MOD LSB: MOD TO KEVIN R Rot: MOD L Rot: MIN PATIENT C/O INCREASED NECK PAIN WITH CERVICAL ROM TESTING ALL PLANES ESPECIALLY WITH CERVICAL EXTENSION TESTING. NO WORSE A RESULT. Postural strength: FAIR Palpation: TENDERNESS WITH GENTLE PALPATION OF UPPER THORACIC SPINE, LOWER CERVICAL SPINE, ISAC UT'S AND ISAC MEDIAL SCAP REGIONS. TREATMENT: NEUROMUSCULAR REEDUCATION - RETRAINING OF MVMT AND POSTURE FOR SITTING, LYING AND STANDING ACTIVITIES. Balance/Special Test Scores Oswestry Neck Score: 18 Goals Goal 1:: Decrease C/O HEAD, NECK AND SHLD PAIN. Goal Time Frame: 4-6 Weeks Goal 2:: Improve Personal Care, Lifting, Reading, Work, Driving and Recreational Function. Goal Time Frame: 4-6 Weeks Goal 3:: Instruct in Prophylaxis Goal Time Frame: 4-6 Weeks Anticipated Interventions Patient/Client Instruction: Educate patient on: Condition, Plan of Care and Risk Factors For the Purpose of:: To improve self management Therapeutic Exercise to Include: Strength training, Postural training, Flexibilty training, Neuromotor development and Scapular Strength/Stabilization For the Purpose of:: To decrease pain, To increase ROM, To improve muscle performance and motor function, To increase tolerance to activity/condition/position and To improve ability of physical actions for home/community/work/leisure Cryotherapy (ice pack, ice massage): Yes Thermo therapy (hot pack): Yes For the Purpose of:: To decrease pain and To improve nutrient delivery to tissue Text: Thank you for the opportunity to evaluate your patient. For Medicare and Medicare HMO plans, please review the plan of care and approve it. It will need to be FAXED BACK to us at [phone] for Medicare purposes. For Medicare only, by signing this I certify the plan of care. Please let me know if there are questions or concerns regarding this plan of care. Physician Signature: Date:
--- NOTE | 2023-05-22 15:26 | HP.PTEVAL ---
Patient's Visit Information Visit Information Visit Information: UMA SANTILLAN is a 83 year old F referred to Physical Therapy by Dr. Frandy Gregory MD with a diagnosis of Cervical Spondylosis. Date of Evaluation: 05/22/23 Physical Therapist: Briseyda Horan PT, Cert MDT Visit Plan Frequency: 2-3x /Week Duration: 4 Weeks Plan: POSTURE CORRECTION/STRENGTHENING, INSTRUCTION IN APPROPRIATE BODY MECHANICS AND ACTIVITY MODIFICATIONS. GENTLE NECK AND UPPER BACK STRETCHING AND STRENGTHEING. ISAC UE GENTLE ROM, STRETCHING AND STRENGTHENING. HEP INSTRUCTION. 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 Present symptoms: HEADACHE/PRESSURE. UPPER BACK AND NECK PAIN WITH CERVICAL MUSCLE CRAMPING AND TIGHTNESS. ISAC SHLD PAIN. PATIENT DENIES ISAC UE PAIN, NUMBNESS AND TINGLING BUT SHE DOES GET SHARP PAINS IN HER UPPER BACK/SHLD BLADE REGIONS. 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 Symptoms at onset: KINK IN R SHLD BLADE AREA. Worse: TWISTING WHILE REACHING, TRYING TO LIFT, SITTING, WORKING AT COMPUTER. GETS WORSE THE DAY PROGRESSES. WALKING FOR MORE THAN 5 MINUTES Better: TYLONOL, ICE, HEAT, NO PAIN IN THE MORNINGS. Disturbed sleep: NO Previous history/Previous treatment: H/O REGUALR CHIROPRACTIC FOR YEARS UNTIL GOT HELP FROM MASSAGE THERAPIST - HAS BEEN SEEING MASSAGE THERAPIST FOR ABOUT 10 YEARS WITH ONLY OCCASSIONAL CHIROPRACTIC. NO NECK SURGERY. NO JULIANNA'S. NO PAIN MGMT. This episode: MASSAGE THERAPY X 1 WITH TEMPORARY RELIEF. CHIROPRACTIC X 4 WITH TEMPORARY RELIEF. CHECK UP WITH DR. LOPEZ AFTER RELEASE FROM HOSPITAL FOR RECENT TIA ABOUT END OF MARCH/BEGINNING OF APRIL. DR. LOPEZ ORDERED HEART MONITOR AND STRESS TEST AFTER TIA. STILL WEARING HEART MONITOR. HEART MONITOR IS DUE TO COME OFF Monday05/25/23. FOLLOW UP PENDING WITH DR. LOPEZ 05/25/23. Dizziness: NO Tinnitis: NO Nausea: NO Shortness of Breath: NO Difficulty Swollowing: NO Gait: NORMAL Accidents: NO Unexplained weight loss: NO Imaging: RECENT IMAGING FOR TIA AND DR. GREGORY DID RECENT NECK X-RAYS. OTHER: RECENT COLON CANCER ABOUT A YEAR AGO TREATED WITH SURGERY. SEE FURTHER PMH BELOW. CURRENTLY CANCER FREE FAR PATIENT IS AWARE. PMH from [facility] EMR: Abnormal ECG Abnormal serum enzyme level Alcohol use Anemia Anxiety and depression Arthritis Back pain [facility] Cancer Cancer Cardiology follow-up encounter Chronic cholecystitis Colitis Colon cancer DDD (degenerative disc disease), cervical Depression Essential hypertension Former smoker Genetic predisposition to cancer HLD (hyperlipidemia) Hemorrhoids High cholesterol History of breast cancer History of colitis History of diverticulitis History of echocardiogram History of irregular heartbeat History of left breast cancer Hypertension Injury of back Injury of head and neck Normal stress echocardiogram Osteoporosis Pancreatitis Post-menopausal Right bundle branch block (RBBB) Screen for colon cancer Syncope Thyroid nodule Vasovagal syncope Wears dentures Wears glasses Wears hearing aid History of cardiac catheterization 10/23/14 History of left heart catheterization (LHC) ~07/27/22 History of mastectomy History of right hemicolectomy 02/21/22 Hx of appendectomy Hx of bilateral cataract extraction Hx of colonoscopy Hx of left mastectomy S/P colonoscopy S/P laparoscopic cholecystectomy ~01/03/18 S/P lumpectomy of breast Objective Objective: Sitting Posture/Standing Posture: FH. DOWAGERS HUMP. RSH'S L > RIGHT. Active Correction of posture: BETTER Other Observations: INDEP GAIT AND TRANSFERS Sensory deficit: ISAC UE LIGHT TOUCH SENSATION GROSSLY INTACT AND SYMMETRICAL ROM deficit: ISAC UE'S WFL BUT PATIENT C/O UPPER BACK AND NECK PAIN WITH ISAC SHLD ELEVATION. Motor deficit: ISAC UE STRENGTH GROSSLY 4/5 WITH MMT'ING. 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 Dural Signs: POSITIVE ISAC UE'S. Cervical Mvmt Loss: Flex: NIL Pro: NIL Ext: MOD Ret: MOD RSB: MOD LSB: MOD TO KEVIN R Rot: MOD L Rot: MIN PATIENT C/O INCREASED NECK PAIN WITH CERVICAL ROM TESTING ALL PLANES ESPECIALLY WITH CERVICAL EXTENSION TESTING. NO WORSE A RESULT. Postural strength: FAIR Palpation: TENDERNESS WITH GENTLE PALPATION OF UPPER THORACIC SPINE, LOWER CERVICAL SPINE, ISAC UT'S AND ISAC MEDIAL SCAP REGIONS. TREATMENT: NEUROMUSCULAR REEDUCATION - RETRAINING OF MVMT AND POSTURE FOR SITTING, LYING AND STANDING ACTIVITIES. Balance/Special Test Scores Oswestry Neck Score: 18 Goals Goal 1:: Decrease C/O HEAD, NECK AND SHLD PAIN. Goal Time Frame: 4-6 Weeks Goal 2:: Improve Personal Care, Lifting, Reading, Work, Driving and Recreational Function. Goal Time Frame: 4-6 Weeks Goal 3:: Instruct in Prophylaxis Goal Time Frame: 4-6 Weeks Anticipated Interventions Patient/Client Instruction: Educate patient on: Condition, Plan of Care and Risk Factors For the Purpose of:: To improve self management Therapeutic Exercise to Include: Strength training, Postural training, Flexibilty training, Neuromotor development and Scapular Strength/Stabilization For the Purpose of:: To decrease pain, To increase ROM, To improve muscle performance and motor function, To increase tolerance to activity/condition/position and To improve ability of physical actions for home/community/work/leisure Cryotherapy (ice pack, ice massage): Yes Thermo therapy (hot pack): Yes For the Purpose of:: To decrease pain and To improve nutrient delivery to tissue Text: Thank you for the opportunity to evaluate your patient. For Medicare and Medicare HMO plans, please review the plan of care and approve it. It will need to be FAXED BACK to us at [phone] for Medicare purposes. For Medicare only, by signing this I certify the plan of care. Please let me know if there are questions or concerns regarding this plan of care. Physician Signature: Date:
--- NOTE | 2023-06-29 12:45 | HP.PTDCSUM ---
Discharge Summary D/C summary: It has been my pleasure to treat UMA SANTILLAN referred by Dr. Frandy Perera MD, with the diagnosis of Cervical Spondylosis for a total of 9 visit(s). Discharge Date: 06/29/23 Please see the following information for a summary of their discharge status. Subjective Subjective: PATIENT REPORTS SHE CAN MOVE HER ARMS NOW WITHOUT HAVING STABBING PAINS IN HER SHLDS. SHE REPORTS HER NECK DOESN'T HURT ALL THE TIME AND SHE ISN'T HAVING ANY OF THOSE CRAZY HEADACHES ANYMORE. SHE REPORTS SHE CAN JUST MOVE BETTER AND JUST FEELS STRONGER. SHE STATES IT HAS BEEN REALLY BENEFICIAL TO HAVE INSTRUCTION ON WHAT TO DO AND HOW TO DO IT RIGHT. Pain left scap: Pain Intensity (Out of 10): 0 R SHLD: Pain Intensity (Out of 10): 0 Overall Improvement % Improvement: 98 Objective Objective/Function: PATIENT WAS SEEN TODAY FOR RE-ASSESSMENT OF PROGRESS TOWARD THE SET PT GOALS AND THE NEED FOR FURTHER PHYSICAL THERAPY VS READINESS FOR DISCHARGE. ALL GOALS HAVE BEEN MET AND PATIENT IS APPROPRIATE FOR AND AGREEABLE TO DISCHARGE. UPON EXAM TODAY: ROM deficit: ISAC UE'S WFL AND NO C/O PAIN WITH TESTING TODAY. Motor deficit: ISAC UE STRENGTH GROSSLY 5/5 WITH MMT'ING. 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 PATIENT DENIES PAIN WITH TESTING. Dural Signs: POSITIVE ISAC UE'S. Cervical Mvmt Loss: Flex: NIL Pro: NIL Ext: NIL Ret: MOD RSB: MOD LSB: MOD TO KEVIN R Rot: MIN L Rot: MIN PATIENT REPORTS A LITTLE BIT OF NECK PAIN WITH CERVICAL ROM TESTING INTO R SB ONLY TODAY. Palpation: PATIENT DENIES PAIN WITH PALPATION OF THORACIC AND CERVICAL REGIONS TODAY BUT A LITTLE BIT OF TENDERNESS AT THE T12 REGION. Goals Goal 1:: Decrease C/O HEAD, NECK AND SHLD PAIN. Goal Progress: Goal Met Goal 2:: Improve Personal Care, Lifting, Reading, Work, Driving and Recreational Function. Goal Progress: Goal Met Goal 3:: Instruct in Prophylaxis Goal Progress: Goal Met Plan Plan: D/C TO INDEP EX. PATIENT AGREEABLE. D/C Information d/c sentence: If there are questions or concerns regarding this patient's physical therapy, please feel free to call me at [phone]. Thank you for the referral of this patient. Sincerely, Briseyda Horan, PT, Cert MDT Balance/Gait/Functional tests Balance/Special Test Scores Oswestry Neck Score: 10 Improvement % Improvement: 98
== END 2023-06-29 14:22 | disposition home or self-care (01) ==
LOC: PT 12:00
PROVIDERS: PCP Family Medicine; Referring Provider Chiropractor; Visit Provider Chiropractor
DX: M47.812 Spondylosis without myelopathy or radiculopathy, cervical region (principal)
CPT/HCPCS: 97110; 97112; 97162; 97164

== ENCOUNTER 2024-06-22 15:37 | Emergency (ER) | payer MEDICARE, SELFPAY ==
[2024-06-22 15:38] VITALS: BP 175/74; PULSE 66; RESP 18; TEMP 36.6; O2SAT 95; BMI 22.4
[2024-06-22 15:39] VITALS: BP 160/79; PULSE 64; RESP 16; TEMP 36.6; O2SAT 96
--- NOTE | 2024-06-22 16:14 | CT_ITS ---
STUDY: CT ABDOMEN AND PELVIS WITH CONTRAST REASON FOR EXAM: Female, 84 years old. diarrhea X 10 DAYS . HISTORY OF COLON CANCER RADIATION DOSAGE (If Supplied By Facility): CTDIvol = ( 11.48 ) mGy, DLP = ( 622.22 ) mGycm TECHNIQUE: Transaxial images were obtained from the dome of the diaphragm to the symphysis pubis without oral contrast. IV 100mL Isovue-300 was administered. Sagittal and coronal images were reconstructed. Individualized dose optimization techniques were used for this CT. COMPARISON: February 22, 2022 FINDINGS: Minor atelectasis within the dependent portion of the lower lobes. Heart size is normal. There is mild coronary artery calcification. Normal liver. Gallbladder has been removed surgically. Normal spleen. Normal pancreas. Normal bilateral adrenal glands. Normal right kidney. Normal left kidney. Normal visualized stomach. There is mild distention of the small bowel proximal to the anastomosis most likely an ileus although low-grade partial small bowel obstruction not entirely excluded. Postop change status post right hemicolectomy. Mild atherosclerotic change of the aorta without evidence for aneurysm. Normal inferior vena cava. Normal retroperitoneum. Nonspecific bladder distention. Normal abdominal wall. Normal osseous structures. CT/Abdomen/Pelvis W IV Cont ONLY IMPRESSION: Postop change status post right hemicolectomy and cholecystectomy Mildly distended loops of small bowel proximal to anastomosis possibly representing ileus although cannot low-grade partial small bowel obstruction. Limited repeat study with oral contrast would be useful for further evaluation if clinically warranted Electronically Signed: Dillan Reyez MD at 17:17 EDT ,
--- NOTE | 2024-06-22 16:16 | EDS_ITS ---
HPI HPI - GI History of Present Illness Chief Complaint: Diarrhea Informant: patient Abdominal Pain/Flank Pain Onset: Days Context: Gradual Onset Timing: Intermittent Quality: Cramping Location: Diffuse Current Severity: Gone Maximum Severity: Mild Worsened by: Nothing Relieved by: Nothing Nausea/Vomiting/Emesis GI Symptom: Negative for Nausea or Vomiting Diarrhea/Melena/Hematochezia GI Symptom: Positive for Diarrhea; Negative for Melena or Hematochezia Onset: Days Stool Quality: Positive for Loose and Watery Severity: Moderate Episodes: 10 Associated Symptoms Associated Symptoms: Negative for Dysuria, Frequency, Hematuria or Urgency Narrative Narrative: 82-year-old female history of prior colon cancer 2 years ago partial colon resection. No radiation at that time. Also history of breast cancer. Prior appendectomy and cholecystectomy. States she has had diarrhea for the last 10 days. About 10 episodes a day. No gross blood. No history of C. difficile. No fever or vomiting. No recent medication changes. She has used some Imodium without any relief and Pepto-Bismol. Today she did have a slightly formed bowel movement. No recent antibiotics. Prior similar symptoms: Yes Recent Illness/Hospitalization: No PFSH PFSH Medical History History of colon cancer Depression High cholesterol Syncope History of diverticulitis History of echocardiogram Cardiology follow-up encounter Genetic predisposition to cancer History of left breast cancer Vasovagal syncope Right bundle branch block (RBBB) Osteoporosis Essential hypertension DDD (degenerative disc disease), cervical Anxiety and depression Thyroid nodule Colon cancer Cancer Wears hearing aid Wears dentures Wears glasses Post-menopausal Cancer Alcohol use Arthritis Anemia Injury of head and neck Back pain Injury of back Blackout Colitis Former smoker Normal stress echocardiogram History of irregular heartbeat Chronic cholecystitis History of colitis Pancreatitis Hemorrhoids History of breast cancer Screen for colon cancer HLD (hyperlipidemia) Abnormal ECG Abnormal serum enzyme level Hypertension Home Medications ?Medication ?Instructions ?Recorded ?Last Taken ?Type sertraline 50 mg tablet (Zoloft) 50 mg PO DAILY DEPRESSION 12/28/17 02/21/22 History calcium citrate 250 mg 1 tab PO DAILY 03/08/22 Unknown History calcium-vitamin D3 5 mcg (200 unit) tablet (Citracal Regular) cyclosporine 0.05 % eye drops in a 1 drp EACH EYE BID 03/08/22 Unknown History dropperette [id number] acid 0.4 1 tab PO DAILY 03/08/22 Unknown History mg-lycopene 300 mcg-lutein 250 mcg tablet (Centrum Silver) sodium chloride 2 % eye drops 1 drp ophthalmic (eye) DAILY PRN 03/08/22 Unknown History (Itzel 128) PRN Dry Eyes hydrochlorothiazide 12.5 mg capsule 12.5 mg PO DAILY 05/20/22 Unknown History amlodipine 2.5 mg tablet (Norvasc) 2.5 mg PO DAILY #90 tabs 07/27/22 03/28/23 Rx Devil's claw 1 cap PO DAILY PRN PRN Pain 12/01/22 Unknown History diphenoxylate-atropine 2.5 1 tab PO 4X/DAY PRN diarrhea 12/01/22 Unknown History mg-0.025 mg tablet (Lomotil) loratadine 10 mg tablet 10 mg PO DAILY PRN allergy symptoms 12/01/22 Unknown History clopidogrel 75 mg tablet 75 mg PO DAILY 30 days #30 tabs 04/17/23 Unknown Rx metoprolol succinate 25 mg 25 mg PO DAILY #90 tabs 07/11/23 Unknown Rx tablet,extended release 24 hr atorvastatin 40 mg tablet 40 mg PO QHS #90 tabs 07/21/23 Unknown Rx Allergy/AdvReac Type Severity Reaction Status Date / Time ciprofloxacin (From Cipro) Allergy Mild hives Verified 06/22/24 15:38 mesalamine Allergy Mild Hives Verified 06/22/24 15:38 alendronate sodium (From Allergy Unknown Diarrhea Verified 06/22/24 15:38 Fosamax) povidone-iodine (From Allergy Rash Verified 06/22/24 15:38 Betagen (povidone-iodine)) latex AdvReac Hives Verified 06/22/24 15:38 pneumococcal vaccine AdvReac Other Verified 06/22/24 15:38 Family History Mother Hypertension CVA (cerebral vascular accident) Sister Hypertension Father CVA (cerebral vascular accident) Other Alcohol abuse Anxiety Depression H/O ulcer disease Psychiatric care Surgical History History of left heart catheterization (LHC) (~07/27/22) History of right hemicolectomy (02/21/22) History of mastectomy Hx of colonoscopy History of cardiac catheterization (10/23/14) Hx of left mastectomy Hx of appendectomy Hx of bilateral cataract extraction S/P laparoscopic cholecystectomy (~01/03/18) S/P colonoscopy S/P lumpectomy of breast Social History household members: spouse Smoking Status: Former smoker how long ago did patient quit smoking: started in high school, quit in 1977; smoked a pack a month, sometimes more alcohol intake: current alcohol intake frequency: a few times a month Alcohol type: wine substance use type: does not use diet: other ROS ROS ED ROS Narrative Diarrhea x 10 days. Constitutional Constitutional ED: Denies chills or fever(s) ENT ENT ED: Denies ear pain Cardiovascular Cardiovascular: Denies chest pain Respiratory/Chest Respiratory/Chest: Denies cough Gastrointestinal Gastrointestinal: Reports abdominal pain, diarrhea and other Details: Intermittent mild abdominal cramping. ; Denies constipation, melena, nausea or vomiting Genitourinary Genitourinary ED: Denies dysuria or hematuria Musculoskeletal Musculoskeletal: Denies arthralgias or back pain Integumentary Denies abscess Neurologic Neurologic: Denies headache(s) Psychiatric Psychiatric: Denies anxiety Endocrine Endocrinology: Denies polydipsia Hematologic/Lymphatic Hematologic/Lymphatic: Denies easy bleeding Allergic/Immunologic Allergic/Immunologic ED: Denies mouth swelling, tongue swelling or urticaria EXAM Physical Exam Narrative Exam Narrative: Well-appearing 84-year-old female. Vital signs stable afebrile. H EENT exam. Dry mucous membranes otherwise unremarkable. Neck nontender. Lungs clear to auscultation bilateral. Heart regular rhythm rate about 65 no murmur. Chest wall ribs nontender. Abdomen soft nontender. Nondistended. No peritoneal signs. No hernia or mass. No distention. Moving all 4 extremities. Nontender no edema. Neurologically she is awake alert no focal motor deficits. Answering questions following commands. Const Vital Signs: 06/22/24 15:38 06/22/24 15:39 06/22/24 16:39 Temperature 97.9 F 97.8 F 97.8 F Temperature Source Temporal Oral Oral Pulse Rate 66 64 67 Respiratory Rate 18 16 16 Blood Pressure 175/74 H 160/79 H 150/74 H Blood Pressure Mean 107 106 99 Pulse Ox 95 96 98 Oxygen Delivery Method Room Air Room Air Room Air 06/22/24 17:37 Temperature Temperature Source Pulse Rate 58 L Respiratory Rate 16 Blood Pressure 141/78 H Blood Pressure Mean 99 Pulse Ox 97 Oxygen Delivery Method Room Air Positive well nourished and well developed; Negative for obese, cachectic, contractures or unkempt General Appearance ED: well developed and NAD; Negative for unkempt, cachectic, contractures or pallor Nutritional Appearance: Negative for cachectic or obese HEENT Reports dry mucous membranes normocephalic and atraumatic; Negative for trauma or tenderness Mouth ED: Yes dry mucous membranes Mouth: dry mucous membranes Eyes PERRL and EOMs intact bilaterally General Eye ED: Negative for pale conjunctiva or scleral icterus Neck no lymphadenopathy, supple and no JVD Resp normal respiratory effort and clear to auscultation bilaterally Effort and Inspection: Negative for respiratory distress Auscultation: Negative for rales, rhonchi, wheezes, diminished lung sounds or other Cardio regular rate, regular rhythm, S1 normal heart sound, S2 normal heart sound and no murmurs Rate: Negative for bradycardia or tachycardic Rhythm: Negative for abnormal rhythm GI non-tender, non-distended and no masses Inspection: Negative for abdominal distention Auscultation: normoactive bowel sounds Palpation: soft; Negative for tender, guarding, hepatomegaly, splenomegaly, hernia, mass, pulsatile mass or rebound tenderness present Back/Spine no CVA tenderness General Back: Negative for CVA tenderness Cervical Spine: Negative for cervical spine tenderness Thoracic Spine / Upper Back: Negative for thoracic spinal tenderness Lumbar Spine / Lower Back: Negative for lumbar spinal tenderness Extremity full ROM General Extremety ED: Negative for edema or tenderness General Extremity: Negative for edema Neuro CN's II-XII intact bilaterally and moves all extremities Sensorium / Orientation: alert, oriented to person, oriented to place and oriented to time; Negative for orientation impaired, confused, lethargic or stuporous Motor Exam: strength 5/5 throughout Psych mental status grossly normal and thought process normal Appearance: Negative for unkempt Attitude: No agitated Mood & Affect: Negative for depressed, anxious or tearful Skin no wounds General Skin Exam: Negative for jaundice or pallor Lesions: no lesions Rashes: no rashes Trauma: Negative for abrasion Nails: Negative for discolored MDM MDM MDM Narrative Medical decision making narrative: 84-year-old female with diarrhea for about 10 days. Exam benign other than possibly mildly dehydrated. CAT scan labs are pending. She will be treated with a liter normal saline for mild dehydration. Repeat exam patient doing well at 5:54 PM. Abdomen benign. We went over test results. Patient doing well. She denies any discussed all of her test she is comfortable being discharged to home. She gave the [facility] earlier today stool sample for cultures and she can follow-up with those results. She was unable to have a bowel movement here. History & Record Review Discussion w/independent historian: Patient and Family Additional record(s) reviewed:: Prior inpatient record, Prior outpatient record, Prior ED visit and Prior labs Lab Data Attestation: I reviewed the patient's lab results. Lab results narrative: CBC white count of 5. H&H 12.8 and 39. Platelets 186. Electrolytes show gap 3. Normal BUN and creatinine of 14 and 0.58. Glucose 92. Liver enzymes normal. Lipase normal. CAT scan of the abdomen chronic changes. They discussed in [facility] her abdomen is benign. This is not an ileus or small bowel obstruction clinically. Labs: Laboratory Results - last 24 hr 06/22/24 15:59 WBC 5.3 RBC 4.17 L Hgb 12.8 Hct 39.3 MCV 94.2 MCH 30.7 MCHC 32.6 RDW Std Deviation 44.5 H RDW Coeff of Michelle 12.8 Plt Count 186 MPV 9.8 Immature Gran % (Auto) 0.400 Neut % (Auto) 66.3 Lymph % (Auto) 23.2 Sevier % (Auto) 8.0 Eos % (Auto) 1.3 Baso % (Auto) 0.8 Absolute Neuts (auto) 3.5 Absolute Lymphs (auto) 1.22 Nucleated RBC % 0 Sodium 140 Potassium 3.9 Chloride 107 Carbon Dioxide 30.0 Anion Gap 3 L BUN 14 Creatinine 0.58 Estim Creat Clear Calc 48.79 Est GFR (MDRD) Af Amer 129 Est GFR (MDRD) Non-Af 106 BUN/Creatinine Ratio 24.2 H Glucose 92 Calcium 9.2 Total Bilirubin 0.50 AST 23 ALT 38 Alkaline Phosphatase 72 Total Protein 6.9 Albumin 3.6 Globulin 3.3 Albumin/Globulin Ratio 1.1 Lipase 33 Radiography Diagnostic Testing: Clinical Impression(s) from Imaging Studies Abdomen/Pelvis CT 06/22/24 16:14 IMPRESSION: Postop change status post right hemicolectomy and cholecystectomy Mildly distended loops of small bowel proximal to anastomosis possibly representing ileus although cannot low-grade partial small bowel obstruction. Limited repeat study with oral contrast would be useful for further evaluation if clinically warranted Electronically Signed: Dillan Reyez MD at 17:17 EDT Reading Location ID and State: [facility] / [place] Tel , Service support , Discharge Plan Triage Chief Complaint: Diarrhea ED Provider: Josh Choudhury Dx/Rx/DC Orders Clinical Impression: Diarrhea, History of colon cancer Instructions: ED Diarrhea, Unknown Cause Prescriptions: No Action Centrum Silver 0.4 mg-300 mcg- 250 mcg tablet 1 tab PO DAILY calcium citrate-vitamin D3 [Citracal Regular] 250 mg-5 mcg (200 unit) tablet 1 tab PO DAILY Itzel 128 2 % drops 1 drp ophthalmic (eye) DAILY PRN PRN (Reason: Dry Eyes) hydrochlorothiazide 12.5 mg capsule 12.5 mg PO DAILY Patient Comments: TAKE 1 CAPSULE BY MOUTH ONCE DAILY loratadine 10 mg tablet 10 mg PO DAILY PRN (Reason: allergy symptoms) Devil's claw 1 cap PO DAILY PRN PRN (Reason: Pain) diphenoxylate-atropine [Lomotil] 2.5-0.025 mg tablet 1 tab PO 4X/DAY PRN (Reason: diarrhea) sertraline [Zoloft] 50 MG tablet 50 mg PO DAILY cyclosporine 0.05 % dropperette 1 drp EACH EYE BID Rx Instructions: Restasis clopidogrel 75 mg Tablet 75 mg PO DAILY 30 Days Qty: 30 0RF Rx Instructions: Take aspirin and Plavix for 3 weeks and then discontinue the aspirin amlodipine [Norvasc] 2.5 mg tablet 2.5 mg PO DAILY Qty: 90 3RF metoprolol succinate 25 mg tablet extended release 24 hr 25 mg PO DAILY Qty: 90 3RF atorvastatin 40 mg tablet 40 mg PO QHS Qty: 90 3RF Primary Care Provider: Dillan German Referrals: Dillan German MD [Primary Care Provider] - 3-5 Days Activity Restrictions/Additional Instructions: Plenty of fluids and rest. Slowly increase your diet as tolerated. Imodium as needed for diarrhea. Follow-up your primary care physician to ensure you are improving and to follow- up on the stool sample that you gave them. Your test here today look good. Print Language: Icelandic Disposition Disposition: Home, Self Care
[2024-06-22] MEDS: 0.9% Normal Saline (1000mL) 1,000 ML 999 ML IV (16:20)
[2024-06-22 16:33] LABS: Absolute Lymphocyte Count 1.22 X10^3/uL (0.83-4.51); Absolute Neutrophil Count 3.5 X10^3/uL (2.0-7.7); Basophil# 0.04 X10^3/uL; Basophil% 0.8 % (0-1); Eosinophil# 0.07 X10^3/uL; Eosinophils% 1.3 % (0-5); Hematocrit 39.3 % (37-47); Hemoglobin 12.8 g/dL (12.0-15.0); Lymphocyte # 1.22 X10^3/ul (0.83-4.51); Lymphocyte % 23.2 % (19-41); Mean Corp Hgb Conc 32.6 g/dL (32-36); Mean Corpuscular Hgb 30.7 pg (27.0-32.0); Mean Corpuscular Volume 94.2 fL (81-99); Mean Platelet Vol. 9.8 fl (6.2-12.0); Monocyte# 0.42 X10^3/uL; NRBC Flagged by Analyzer 0 % (0-5); Neutrophil # 3.49 X10^3/uL (2.7-7.7); Neutrophil % 66.3 % (47-70); Platelet Count 186 K/mm3 (150-450); RBC Distribution Width CV 12.8 % (11.6-14.6); RBC Distribution Width SD 44.5 fl (35.1-43.9); Red Blood Count 4.17 M/mm3 (4.2-5.4); White Blood Count 5.3 K/mm3 (4.4-11.0)
[2024-06-22 16:39] VITALS: BP 150/74; PULSE 67; RESP 16; TEMP 36.6; O2SAT 98
[2024-06-22 16:45] LABS: ALB/GLOB Ratio 1.1 RATIO (0.9-2.4); AST(SGOT) 23 U/L (15-37); Alanine Aminotransfer ALT/SGPT 38 U/L (13-56); Albumin, Serum 3.6 g/dL (3.2-5.0); Alkaline Phosphatase 72 U/L (45-117); Anion Gap 3 (5-15); BUN 14 mg/dL (7-18); BUN/Creat Ratio 24.2 RATIO (10-20); Calcium,Total 9.2 mg/dL (8.5-10.1); Chloride 107 mmol/L (98-107); Creatinine, Serum 0.58 mg/dL (0.55-1.02); EST Glomerular Filtration Rate 106 mL/min (>60); Est Glom Filt Rate - Afr Amer 129 mL/min (>60); Estimated Creatinine Clearance 48.79 ml/min; Globulin 3.3 g/dL (2.2-4.2); Glucose 92 mg/dL (74-106); Lipase 33 U/L (13-75); Potassium 3.9 mmol/L (3.5-5.1); Protein, Total 6.9 g/dL (6.4-8.2); Sodium Level 140 mmol/L (136-145)
[2024-06-22 17:37] VITALS: BP 141/78; PULSE 58; RESP 16; O2SAT 97
[2024-06-22 18:01] VITALS: BP 166/83; PULSE 67; RESP 16; TEMP 34.4; O2SAT 99
== END 2024-06-22 18:07 | disposition home or self-care (01) ==
PROVIDERS: Emergency Provider Emergency Medicine; PCP Family Medicine; Visit Provider Emergency Medicine
DX: R19.7 Diarrhea, unspecified (principal); E78.00 Pure hypercholesterolemia, unspecified; I10 Essential (primary) hypertension; E86.0 Dehydration; Z87.891 Personal history of nicotine dependence; Z85.038 Personal history of other malignant neoplasm of large intestine; Z85.3 Personal history of malignant neoplasm of breast; Z90.49 Acquired absence of other specified parts of digestive tract; F32.A Depression, unspecified; Z79.899 Other long term (current) drug therapy; Z79.02 Long term (current) use of antithrombotics/antiplatelets; Z90.12 Acquired absence of left breast and nipple; Z98.41 Cataract extraction status, right eye; Z98.42 Cataract extraction status, left eye
CPT/HCPCS: 74177; 80053; 83690; 85025; 96360; 99283; J7030; Q9967; A4216